=== PATIENT | female | born 1965 | race African-American/Black ===

== ENCOUNTER 2017-07-09 14:28 | Inpatient (IN) | payer OTHER ==
[~2017-07-09] VITALS: Ht 162.6 cm; Wt 69.0 kg
[2017-07-09] VITALS (10 sets, daily range): BP systolic 123–235; BP diastolic 63–146
--- NOTE | 2017-07-09 22:41 | HP ---
ADMIT DATE: 07/09/2017 CHIEF COMPLAINT: Shortness of breath. HISTORY OF PRESENT ILLNESS: The patient is a pleasant 52-year-old female who I believe has known heart failure. She presented with shortness of breath. She also had pressure of 250/150. Her BNP levels greater than 35,000. She initially was at [facility]. We have accepted her as a transfer to our facility. She is now in the ICU room 103. PAST MEDICAL HISTORY: CHF, hypertension, hyperlipidemia. Other past medical history was reviewed. Please refer to the MRAD. ALLERGIES: None. FAMILY HISTORY: Hypertension. SOCIAL HISTORY: She does not drink, smoke or take drugs. MEDICATIONS: Reviewed, please refer to the MRAD. REVIEW OF SYSTEMS: GENERAL: No history of weight change, weakness or fevers. SKIN: No bruising, hair changes or rashes. EYES: No blurred, double or loss of vision. NOSE AND THROAT: No history of nosebleeds, hoarseness or sore throat. HEART: No history of palpitations, chest pain or shortness of breath on exertion. LUNGS: She complains of shortness of breath. GASTROINTESTINAL: Denies changes in appetite, nausea, vomiting, diarrhea or constipation. GENITOURINARY: No history of frequency, urgency, hesitancy or nocturia. NEUROLOGIC: Denies history of numbness, tingling, tremor or weakness. PSYCHIATRIC: No history of panic, anxiety or depression. ENDOCRINE: No history of heat or cold intolerance, polyuria or polydipsia. EXTREMITIES: Denies muscle weakness, joint pain, pain on walking or stiffness. PHYSICAL EXAMINATION: VITAL SIGNS: Temperature afebrile, pulse 95, respirations 21, blood pressure is down to 170/84. She is on a Cardene drip here in the ICU. HEART: Distant S1, S2 with a soft S3 gallop. LUNGS: Bibasilar crackles. ABDOMEN: Soft, a little distended. EXTREMITIES: 1+ edema. SKIN: No rashes. PSYCHIATRIC: She is a little flat. ENDOCRINE: No thyromegaly. LYMPHATICS: No cervical nodes. HEMATOPOIETIC: No bruising. ASSESSMENT AND PLAN: Acute on chronic systolic and diastolic heart failure, probably class IV with severe hypertensive emergency. The patient has been admitted to the ICU on a Cardene drip. We are going to diurese her with IV Lasix. Consult cardiology, serial enzymes, serial EKGs. Continue home medicines. PROGNOSIS: Guarded. FABRIZIO CLEMONS DO DR: JENNIE/pedro JOB#: [id number] / [id number]
[2017-07-10] VITALS (27 sets, daily range): BP systolic 164–200; BP diastolic 78–114
[2017-07-10 04:26] LABS: HEMATOCRIT 36.5 % (36.0-47.0); HEMOGLOBIN 11.9 g/dL (12.0-15.5); RED BLOOD COUNT 4.13 x10^6/uL (3.50-5.40); RED CELL DISTRIBUTION WIDTH 18.2 % (11.5-14.5); WHITE BLOOD COUNT 10.1 x10^3/uL (4.0-11.0)
--- NOTE | 2017-07-10 04:27 | ACF ---
Admission Forms Criteria HEART FAILURE: COMMON COMPLICATIONS (Place 'X' for any and all applicable criteria): Ongoing inpatient care may be indicated for heart failure with 1 or more of the following (1)(2)(3)(4)(5)(6)(7)(8): [ ]I. New-onset heart failure [ ]II. Acute cardiac ischemia causing or associated with failure [ ]III. Ongoing need for care for primary condition requiring frequent therapy adjustments because of changes in cardiac function (eg, drug dosage changes for drugs that are renally metabolized) [X]IV. Complications of heart failure, including 1 or more of the following: [ ]a) Hemodynamic instability [ ]b) Pericardial effusion [ ]c) Symptomatic pleural effusion [ ]d) Hypoxemia [ ]e) Tachypnea [X]f) Dyspnea [ ]g) Syncope [ ]h) Altered mental status [ ]i) Acute renal insufficiency that is severe (reduction of more than 50% in estimated glomerular filtration rate from baseline) or progressive reduction of more than 25% in estimated glomerular filtration rate from baseline, with creatinine continuing to rise) [ ]j) Debilitating anasarca (eg tissue breakdown with infection, inability to void due to edema) (E) [ ]k) Clinically significant metabolic abnormalities due to heart failure (eg, new-onset metabolic acidosis) Extended stay may be needed until ALL of the following are present (1)(3)(18)(41 )(55) [ ]a) Hemodynamic stability [ ]b) Stable and effective diuretic regimen established (or patient on stable dialysis regimen if in chronic renal failure) [ ]c) Volume status acceptable on oral medication [ ]d) Breathing comfortably at rest [ ]e) Saturation of arterial oxygen greater than 90% or at acceptable baseline [ ]f) Pulmonary edema absent or improved [ ]g) Peripheral or sacral edema absent or improved [ ]h) Renal function stable and manageable at a lower level of care [ ]i) Complications (eg, pleural effusion) resolved or manageable at a lower level of care [ ]g) Patient or caregiver has received written discharge instructions or educational material addressing activity level, diet, discharge medications, follow-up appointment, weight monitoring, and what to do if symptoms worsen.(25)(26) The original [facility] [employer] content created by Elise Brambila[employer]rex[employer]arlen[employer] has been revised. The portions of the content which have been revised are identified through the use of italic text, and [facility] has neither reviewed nor approved the modified material.All other unmodified content is copyright [facility]. Please see references footnoted in the original [facility] edition 2015 Admission Criteria Met?: Yes JANN VASQUEZ Jul 10, 2017 04:26
--- NOTE | 2017-07-10 09:57 | RAD ---
Bilateral renal ultrasound without comparison for abnormal kidney labs. Findings: The right kidney measures 10.1 x 4.9 x 3.9 cm and the left measures 10.3 x 5.0 x 5.4 cm. Both kidneys demonstrate increased cortical echogenicity diffusely, which can signify glomerulonephritis, nephrosclerosis, or acute tubular necrosis. There is normal color Doppler flow to both kidneys. No focal parenchymal abnormalities are seen. No hydronephrosis or perinephric fluid is evident. The urinary bladder is fluid distended and grossly unremarkable. The aorta is nonaneurysmal. The IVC is patent. Impression: 1. Diffusely increased cortical echogenicity suggesting underlying medical renal disease such as glomerulonephritis, nephrosclerosis, or acute tubular necrosis.
[2017-07-10] MEDS ORDERED: MAGNESIUM SULFATE 2GM 50 ML IV PRN (10:15)
[2017-07-10] MEDS ORDERED: METOPROLOL TART IMMED RELEASE 25 MG TABLET. PO SCH (10:15)
[2017-07-10 10:35] LABS: % SAT IRON 15 % (15-34); IRON,SERUM 42 ug/dL (50-170)
--- NOTE | 2017-07-10 10:46 | PDOC2 ---
CONSULT Date of Consult Date of Consult DATE: 07/10/17 TIME: 10:34 Reason for Consult Reason for Consult: ^ed Creat Referring Physician Referring Physician: Dr Johnston Identification/Chief Complaint Chief Complaint Swelling and SOB Problems: Source Source: Patient History of Present Illness Reason for Visit: as dictated Past Medical History Cardiovascular: HTN Family History Family History: Cancer, Diabetes, Hypertension Social History <1 pack per day ALCOHOL: rare Drugs: None Lives: Alone Current Medications Current Medications Current Medications Nicardipine HCl 50 mg/Sodium Chloride 270 ml @ 0 mls/hr CONT PRN IV SEE I/O RECORD Last administered on 07/09/17 17:26; Start 07/09/17 at 16:00 Levofloxacin/ Dextrose 100 ml @ 100 mls/hr Q24H IV Last administered on 19:44; Start 07/09/17 at 19:00 Magnesium Sulfate/ Dextrose 50 ml @ 25 mls/hr PRN DAILY PRN IV for Mag < 1.7 on am labs; Start 07/10/17 at 10:15 Active Scripts Active Reported No Known Medications Prior To Admisstion (Info) Each 1 Each Allergies Allergies: Coded Allergies: No Known Drug Allergies (Unverified , 07/09/17) ROS Review of System GEN: no Fevers no Chills + wt loss + Anorexia and Dysguesia EYES: denies Visual Complaints ENT: no EN Drainage no Hearing deficiets CVS: min Orthopnea no CP + edema RESP: + SOB + CASAS GI: occ Nausea no Vomiting : no Dysuria no Urgency HEME: no easy bruising no Palp Ly Nodes NEURO no Focal Weakness no Sz PSYCH: no Suicidal Ideation no Depression SKIN: no Rashes ENDO: no Polyuria or Polydipsia no Hot/Cold Intolerance MU SK: no Arthraigia no Myalgia Physical Exam Physical Exam General Appearance: Awake Alert Oriented x 3 In no Distress Eyes: VIsion Unchanged Conjunctiva Normal EN: No EN Drainage Mucous Memb. moist Neck: no JVD min JVP Supple no Thyromegaly CVS: S1 S2 ? Murmur No Gallop No Rub +3 Edema Resp: rare basal Rales no Rhonchi no Acc. Muscle use GI: BAS +ve NO Bruit Non Tender Non Distended : no CVA tenderness; no Suprapubic Tenderness SKIN: no Rashes Breast Exam deferred Mu.Sk: Adequate ROM no Muscle Atrophy Heme: Unable to palpate Obvious LAD no Splenomegaly NEURO: Good Strength and Tone Cranial Nerves II - XII grossly intact Psych: ? Depressed no Active hallucination Vital Signs Vital Signs Date Time Temp Pulse Resp B/P (MAP) Pulse Ox O2 Delivery O2 Flow Rate FiO2 07/10/17 09:30 166/95 (118) 96 Nasal Cannula 2.0 07/10/17 09:00 24 07/10/17 08:30 66 07/10/17 08:00 98.4 98.4 Assessment & Plan ARF/ ? ATN: Suspect HTNsive /NS and now progression to ESRD status. Current FLuid and E-lyte status does not necessitate emergent need for Dialysis. Will re-evaluate for Dialysis in am. I have discussed her s/s which are suggestive of Uremia. She will vee about it. Fluid Overload - ? due to HTNSive Crisis vs due to ESRD status Edema - Diuresis as ordered HTNsive emergency - Better now on Cardene, Start Oral Meds Anemia: check [place]; start Epogen once BP are better if hgb < 11. Transfuse as needed. HTN: Current BP meds reviewed. See orders for changes. Low K - PO K replacement Anorexia - suspect due to Uremia Bone & Mineral: check Phos, Vit-D and PTH Discussed Plan of Care and prognosis etc. at length withpt Labs Labs Laboratory Tests Test 07/09/17 16:40 07/10/17 04:18 Nasal Screen MRSA (PCR) Negative (Negative) White Blood Count 10.1 x10^3/uL (4.0-11.0) Red Blood Count 4.13 x10^6/uL (3.50-5.40) Hemoglobin 11.9 g/dL (12.0-15.5) Hematocrit 36.5 % (36.0-47.0) Mean Corpuscular Volume 89 fL (79-100) Mean Corpuscular Hemoglobin 29 pg (25-35) Mean Corpuscular Hemoglobin Concent 33 g/dL (31-37) Red Cell Distribution Width 18.2 % (11.5-14.5) Platelet Count 217 x10^3/uL (140-400) Erythrocyte Sedimentation Rate 2 (0-25) Sodium Level 140 mmol/L (136-145) Potassium Level 3.2 mmol/L (3.5-5.1) Chloride Level 100 mmol/L (98-107) Carbon Dioxide Level 28 mmol/L (21-32) Anion Gap 12 (6-14) Blood Urea Nitrogen 53 mg/dL (7-20) Creatinine 3.2 mg/dL (0.6-1.0) Estimated GFR (Cockcroft-Gault) 18.3 Glucose Level 118 mg/dL (70-99) Calcium Level 8.8 mg/dL (8.5-10.1) Magnesium Level 2.2 mg/dL (1.8-2.4) Laboratory Tests Test 07/09/17 16:40 07/10/17 04:18 Nasal Screen MRSA (PCR) Negative (Negative) White Blood Count 10.1 x10^3/uL (4.0-11.0) Red Blood Count 4.13 x10^6/uL (3.50-5.40) Hemoglobin 11.9 g/dL (12.0-15.5) Hematocrit 36.5 % (36.0-47.0) Mean Corpuscular Volume 89 fL (79-100) Mean Corpuscular Hemoglobin 29 pg (25-35) Mean Corpuscular Hemoglobin Concent 33 g/dL (31-37) Red Cell Distribution Width 18.2 % (11.5-14.5) Platelet Count 217 x10^3/uL (140-400) Erythrocyte Sedimentation Rate 2 (0-25) Sodium Level 140 mmol/L (136-145) Potassium Level 3.2 mmol/L (3.5-5.1) Chloride Level 100 mmol/L (98-107) Carbon Dioxide Level 28 mmol/L (21-32) Anion Gap 12 (6-14) Blood Urea Nitrogen 53 mg/dL (7-20) Creatinine 3.2 mg/dL (0.6-1.0) Estimated GFR (Cockcroft-Gault) 18.3 Glucose Level 118 mg/dL (70-99) Calcium Level 8.8 mg/dL (8.5-10.1) Magnesium Level 2.2 mg/dL (1.8-2.4) LEONARDO TANNER MD Jul 10, 2017 10:46
--- NOTE | 2017-07-10 10:47 | PDOC ---
PROGRESS NOTES Chief Complaint Chief Complaint Acute hypoxic respir failure Hypertensive urgency ASSESSMENT AND PLAN: 1. CHF exacerbation: symptomatically improved. received lasix in [facility] yesterday. strict I&O. serial enzymes. cardiology consult 2. Hypertensive urgency: per RN, not tolerating BP <150 w/o neurol sx. d/c nicardipine; start BB low dose (HR in 60s currently). adjust PRN 3. Renal failure: suspect mostly chronic. nephrology consult 4. Hypokalemia: cautious repletion in face of RF. 5. Hypomagnesemia: replete PRN 6. prophylaxis: heparin SQ D/w Dr Brock, Mr Antolin CC time: 40 min History of Present Illness History of Present Illness feels fien, no SOB, GONZALEZ or CP, abd pain Vitals Vitals Vital Signs Date Time Temp Pulse Resp B/P (MAP) Pulse Ox O2 Delivery O2 Flow Rate FiO2 07/10/17 09:30 166/95 (118) 96 Nasal Cannula 2.0 07/10/17 09:00 24 07/10/17 08:30 66 07/10/17 08:00 98.4 98.4 Physical Exam General: Alert, Cooperative, No acute distress Heart: Regular rate, Other (mild gallop) Lungs: Clear Abdomen: Normal bowel sounds, Soft, No tenderness Extremities: Other (2+ edema LE B) Skin: No rashes Labs LABS Laboratory Tests Test 07/09/17 16:40 07/10/17 04:18 Nasal Screen MRSA (PCR) Negative (Negative) White Blood Count 10.1 x10^3/uL (4.0-11.0) Red Blood Count 4.13 x10^6/uL (3.50-5.40) Hemoglobin 11.9 g/dL (12.0-15.5) Hematocrit 36.5 % (36.0-47.0) Mean Corpuscular Volume 89 fL (79-100) Mean Corpuscular Hemoglobin 29 pg (25-35) Mean Corpuscular Hemoglobin Concent 33 g/dL (31-37) Red Cell Distribution Width 18.2 % (11.5-14.5) Platelet Count 217 x10^3/uL (140-400) Erythrocyte Sedimentation Rate 2 (0-25) Sodium Level 140 mmol/L (136-145) Potassium Level 3.2 mmol/L (3.5-5.1) Chloride Level 100 mmol/L (98-107) Carbon Dioxide Level 28 mmol/L (21-32) Anion Gap 12 (6-14) Blood Urea Nitrogen 53 mg/dL (7-20) Creatinine 3.2 mg/dL (0.6-1.0) Estimated GFR (Cockcroft-Gault) 18.3 Glucose Level 118 mg/dL (70-99) Calcium Level 8.8 mg/dL (8.5-10.1) Magnesium Level 2.2 mg/dL (1.8-2.4) JOEY OSUNA MD Jul 10, 2017 10:47
[2017-07-10 10:51] LABS: ALBUMIN 2.8 g/dL (3.4-5.0); POTASSIUM 3.2 mmol/L (3.5-5.1); TOTAL BILIRUBIN 0.6 mg/dL (0.2-1.0); TOTAL PROTEIN 5.6 g/dL (6.4-8.2); URIC ACID 15.5 mg/dL (2.6-6.0)
[2017-07-10 10:59] LABS: CALCIUM 8.8 mg/dL (8.5-10.1); CREATININE 3.2 mg/dL (0.6-1.0); GFR 18.3
[2017-07-10] MEDS: amLODIPine BESYLATE 10 MG TABLET PO SCH (11:01)
[2017-07-10] MEDS: ASPIRIN CHEWABLE 81 MG TABLET. PO SCH (11:02)
[2017-07-10] MEDS: FUROSEMIDE 40 MG/4 ML VIAL. IVP SCH ×2 (11:03→14:00)
--- NOTE | 2017-07-10 11:12 | PDOC2 ---
TING CARRILLO FURNACE PROCESS PLANT OPERATOR 07/10/17 1112: CARDIAC CONSULT DATE OF CONSULT Date of Consult DATE: 07/10/17 TIME: 10:39 REASON FOR CONSULT Reason for Consult: HTN REFERRING PHYSICIAN Referring Physician: Wanda SOURCE Source: Chart review, Patient HISTORY OF PRESENT ILLNESS HISTORY OF PRESENT ILLNESS This is a pleasant 52 yo AA female admitted initially at [facility] for complains of SOA. Reports that her SOA has been going on in the last 2 days. She has no pertinent medical history and the last time she saw an physician was about 3 yrs ago. Reports of orthopnea, PND and increasing leg swelling bilaterally. She could not really tell me if her urination has decreased but reporsts that she drinks adequately. Denies any chest pain, palpitations. Prior to her admission to [facility] she was noted with uncontrolled HTN which is new for her and was complianing of blurred vision as well but no GONZALEZ, facial droop, unilateral extremity weakness. No prior hx of arrhythmia, VTE, falls, injury, fever or any recent infection. Positive for tobacco but no recreational drug use. She works at [employer] and endurance has decreased and lives alone. The last time she was hospitalized was she had her last child. Based on chart review she has been noted with HTN in 2013. She does not take any medication including OTC. PAST MEDICAL HISTORY Past Medical History HTN PAST SURGICAL HISTORY Past Surgical History: Tubal Ligation, Other (oopherectomy) FAMILY HISTORY Family History noncontributory to CV SOCIAL HISTORY Smoke: 1 pack per day (>30 yrs) ALCOHOL: none Drugs: None Lives: Alone CURRENT MEDICATIONS CURRENT MEDICATIONS Current Medications Medications (Trade) Dose Ordered Sig/Yeison Route PRN Reason Start Time Stop Time Status Last Admin Dose Admin Nicardipine HCl 50 mg/Sodium Chloride 270 ml @ 0 mls/hr CONT PRN IV SEE I/O RECORD 07/09/17 16:00 07/10/17 10:36 DC 07/09/17 17:26 Levofloxacin/ Dextrose 100 ml @ 100 mls/hr Q24H IV 07/09/17 19:00 07/09/17 19:44 ALLERGIES ALLERGIES: Coded Allergies: No Known Drug Allergies (Unverified , 07/09/17) ROS Review of System 14 point ROS evaluated with pertinent positives noted per HPI PHYSICAL EXAM General: Alert, Oriented X3, Cooperative, No acute distress HEENT: Atraumatic, Mucous membr. moist/pink Lungs: Clear to auscultation, Normal air movement Heart: Regular rate (SR), Normal S1, Normal S2, Other (S4/ 3/6 systolic murmur to HERMELINDA border) Abdomen: Soft, No tenderness Extremities: No cyanosis, Other (2-3+ bilateral LE pitting edema) Neuro: Normal speech, Sensation intact Psych/Mental Status: Mental status NL, Mood NL MUSCULOSKELETAL: Osteoarthritic changes both hands VITALS VITALS Vital Signs Date Time Temp Pulse Resp B/P (MAP) Pulse Ox O2 Delivery O2 Flow Rate FiO2 07/10/17 09:30 166/95 (118) 96 Nasal Cannula 2.0 07/10/17 09:00 24 07/10/17 08:30 66 07/10/17 08:00 98.4 98.4 LABS Lab: Laboratory Tests Test 07/09/17 16:40 07/10/17 04:18 Nasal Screen MRSA (PCR) Negative (Negative) White Blood Count 10.1 x10^3/uL (4.0-11.0) Red Blood Count 4.13 x10^6/uL (3.50-5.40) Hemoglobin 11.9 g/dL (12.0-15.5) Hematocrit 36.5 % (36.0-47.0) Mean Corpuscular Volume 89 fL (79-100) Mean Corpuscular Hemoglobin 29 pg (25-35) Mean Corpuscular Hemoglobin Concent 33 g/dL (31-37) Red Cell Distribution Width 18.2 % (11.5-14.5) Platelet Count 217 x10^3/uL (140-400) Erythrocyte Sedimentation Rate 2 (0-25) Sodium Level 140 mmol/L (136-145) Potassium Level 3.2 mmol/L (3.5-5.1) Chloride Level 100 mmol/L (98-107) Carbon Dioxide Level 28 mmol/L (21-32) Anion Gap 12 (6-14) Blood Urea Nitrogen 53 mg/dL (7-20) Creatinine 3.2 mg/dL (0.6-1.0) Estimated GFR (Cockcroft-Gault) 18.3 Glucose Level 118 mg/dL (70-99) Calcium Level 8.8 mg/dL (8.5-10.1) Magnesium Level 2.2 mg/dL (1.8-2.4) Iron Level 42 ug/dL (50-170) Total Iron Binding Capacity 283 ug/dL (250-450) Iron Saturation 15 % (15-34) ASSESSMENT/PLAN ASSESSMENT/PLAN 1. Malignant HTN: noted with HTN in 2013 per chart review, no home routine meds. 2. WAYNE: suspect underlying CKD, unknown baseline 3. Acute CHF with possible diastolic dysfunction: promoted by above . Symptom improved 4. Elevated troponin: CP free. EKG SR with LVH. Troponin initial at 0.256 5. Likely SUZANNE 6. Tobaccoism Recommendations 1. TTE, A1C, TSH, TTE, renal duplex, trend troponin, repeat EKG 2. Smoking cessation 3. ASA. Continue with norvasc. Weaning off cardene. DC metoprolol and will start on coreg. Hydralazine IV PRN 4. Replace K as warranted 5. Defer diuretic therapy to nephrology 6. Discussed treatment plan with pt. Problems: GWYN LENNON MD 07/11/17 0934: CARDIAC CONSULT ALLERGIES ALLERGIES: Coded Allergies: No Known Drug Allergies (Unverified , 07/09/17) ASSESSMENT/PLAN ASSESSMENT/PLAN Patient seen and examined 07/10/17. Agree with CORE DRILL OPERATOR's assessment and plan. Blood pressure continues to be elevated. Change beta blockers to labetalol for better control. 2-D echo showed LVEF 40% with possible chronic organized thrombus in the left ventricular apex. Plan for transesophageal echocardiogram for further evaluation. We will obtain Lexiscan nuclear stress test on post a to rule out ischemia. Continue workup and treatment of renal insufficiency per nephrology team. Thank you for your consultation. Problems: TING CARRILLO APRN Jul 10, 2017 11:12 GWYN LENNON MD Jul 11, 2017 09:34
[2017-07-10] MEDS: POTASSIUM CHLORIDE 20 MEQ TABLET.ER. PO SCH (11:30)
[2017-07-10 11:45] LABS: DIRECT BILIRUBIN 0.2 mg/dL (0.0-0.2)
[2017-07-10] MEDS: hydrALAZINE 20 MG/ML VIAL. IVP PRN ×3 (12:05→21:40)
--- NOTE | 2017-07-10 13:34 | CARD ---
APPROVED REPORT EXAM: Two-dimensional and M-mode echocardiogram with Doppler and color Doppler. Other Information Quality : GoodHR: 69bpm Rhythm : NSR INDICATION Congestive Heart Failure RISK FACTORS Hypertension Smoking 2D DIMENSIONS RVDd2.8 (2.9-3.5cm)Left Atrium(2D)4.1 (1.6-4.0cm) IVSd1.7 (0.7-1.1cm)Aortic Root(2D)2.6 (2.0-3.7cm) LVDd5.0 (3.9-5.9cm)LVOT Diameter2.3 (1.8-2.4cm) PWd1.5 (0.7-1.1cm)LVDs3.7 (2.5-4.0cm) FS (%) 26.7 %SV62.7 ml LVEF(%)51.9 (>50%) M-Mode DIMENSIONS LVDd5.03 (4.0-5.6cm)FS (%) 29 % LVDs3.55 (2.0-3.8cm)ESV(Teich)52.7 ml LVEF(%)56 (>50%) Aortic Valve AoV Peak Jaylen.161.1cm/sAoV VTI30.1cm AO Peak GR.10.4mmHgLVOT Peak Jaylen.100.1cm/s AO Mean GR.6mmHgAVA (VMAX)2.52cm2 Mitral Valve MV E Bjuvfqcy732.7cm/sMV E Peak Gr.5mmHg MV DECEL [id number] A Yoxrvlpm19.2cm/s MV E Mean Gr.1mmHgE/A Ratio3.1 MV A [id number] Pulmonary Valve PV Peak Hgfciarp09.9cm/s Tricuspid Valve TR P. Qluivvkv095de/sTR Peak Gr.32mmHg Pulmonary Vein S1 Mlrvvbgl37.6cm/sD2 Ygvhejwc93.5cm/s PVa [id number] LEFT VENTRICLE The left ventricle is normal size. There is moderate to severe concentric left ventricular hypertroph y. Left ventricle systolic function is moderately impaired. The Ejection Fraction is 40%. There is mi ld to moderate global hypokinesis of the left ventricle with inferior wall hypokinesis. Transmitral D oppler flow pattern is Grade IV-fixed restrictive diastolic dysfunction. A 3 x 3 x 2 cm. hyperechoic mass is noted in the apical septal region of the left ventricle consistent with chronic organized thr ombus. RIGHT VENTRICLE The right ventricle is normal size. There is normal right ventricular wall thickness. Systolic functi on is mildly reduced. ATRIA The left atrium is severely dilated. The right atrium size is normal. The interatrial septum is intac t with no evidence for an atrial septal defect or patent foramen ovale as noted on 2-D or Doppler tiesha ging. AORTIC VALVE The aortic valve is mildly sclerotic. The aortic valve is trileaflet. Doppler and Color Flow revealed no significant aortic regurgitation. There is no significant aortic valvular stenosis. MITRAL VALVE Mitral annular calcification is mild. The mitral valve leaflets are thickened. There is no evidence o f mitral valve prolapse. There is no mitral valve stenosis. Doppler and Color Flow revealed no mitral valve regurgitation noted. TRICUSPID VALVE Doppler and Color Flow revealed trace tricuspid regurgitation. The pulmonary artery systolic pressure is estimated at 35 mmHg. There is mild pulmonary hypertension. PULMONIC VALVE The pulmonic valve is not well visualized but appears to open adequately. Doppler and Color Flow reve aled trace pulmonic valvular regurgitation. There is no pulmonic valvular stenosis by spectral Dopple r. GREAT VESSELS The aortic root is normal in size. The ascending aorta is normal in size. The pulmonary artery is nor mal. The IVC is normal in size and collapses >50% with inspiration. PERICARDIAL EFFUSION There is no evidence of significant pericardial effusion. Critical Notification Physician Notified Date: 07/10/2017 Time: 11:52 Physician Name:Jenni Lincoln Critical Value: Yes Response Time:Immediate Report Read Back <Conclusion> Left ventricle systolic function is moderately impaired. The Ejection Fraction is 40%. There is mild to moderate global hypokinesis of the left ventricle with inferior wall hypokinesis. There is moderate to severe concentric left ventricular hypertrophy. A 3 x 3 x 2 cm hyperechoic mass is noted in the apical septal region of the left ventricle consisten t with chronic organized thrombus. The mass is seen in multiple views and less likely to be artifactu al. Consider KEVIN or cardiac MRI for further evaluation.
--- NOTE | 2017-07-10 13:40 | CONS ---
DATE OF CONSULTATION: PRIMARY PHYSICIAN: Dr. Muñoz. REASON FOR CONSULTATION: Elevated creatinine. HISTORY OF PRESENT ILLNESS: The patient is a 52-year-old female who works at [employer]. She is noted to have high blood pressure for at least 4 years that she knows of, malignant in nature. She was diagnosed when she saw Dr. Candelario, but she never followed up for the last 4 years. She thinks she may have had high blood pressure even prior to that. She is not aware of known renal insufficiency. She rarely takes any Advils. She claims she was feeling her usual self; however, her colleagues at work asked her to be checked out given her ongoing edema, shortness of breath and some amount of orthopnea. She admits to have lost about 30 pounds in the last few months also. She has no appetite, is significantly anorexic. Occasional nausea, no vomiting at this time. She was checked at [facility] and was noted to be in CHF with +2 pitting edema and hypertensive crisis. She was placed on a Cardene drip and transferred here after she was found to have an elevated creatinine. Renal sonogram done here shows right kidney measuring 10 cm, left 10.3, both kidneys demonstrate increased cortical echogenicity diffusely, which can signify glomerulonephritis, nephrosclerosis or acute tubular necrosis. In this setting, we did discuss the possibility of a kidney biopsy; however, given the bleeding risk, she has opted not to pursue this. Her ____ symptoms suggestive of uremia and dialysis was discussed at length with the patient. She is not willing to commit at this time. We will fluid optimize and get blood pressures better controlled, and it should infectious disease physician her enough time to think about it. For rest of dictation, see electronic records ____. LEONARDO TANNER MD DR: AMANDA/pedro JOB#: [id number] / [id number]
[2017-07-10] MEDS: HEPARIN PF for SUB-Q USE 5,000 UNIT/0.5 ML VIAL. SQ SCH ×2 (14:00→21:39)
--- NOTE | 2017-07-10 14:27 | EKG ---
[facility] [address] [place] [address] Test Date: 2017-07-10 Test Time: 14:22:32 Pat Name: GARCÍA SHORT Department: Room: 103 1 Gender: F [employer] Finance Manager: CHELSEA : 1965 Requested By: TING CARRILLO Order Number: [id number] Reading MD: Jarett Marte Measurements Intervals [place] Rate: 68 P: UT: QRS: -7 QRSD: 150 T: -179 QT: 504 QTc: 542 Interpretive Statements SINUS RHYTHM LEFTWARD AXIS NON SPECIFIC INTRAVENTRICULAR BLOCK CONSIDER ANTEROLATERAL MYOCARDIAL DAMAGE CONSIDER INFERIOR MYOCARDIAL DAMAGE Electronically Signed On 07-12-2017 11:14:53 CDT by Jarett Marte
[2017-07-10 15:14] LABS: BASO # 0.1 x10^3/uL (0.0-0.2); BASO % 1 % (0-3); EOS % 0 % (0-3); HEMATOCRIT 42.3 % (36.0-47.0); HEMOGLOBIN 13.5 g/dL (12.0-15.5); LYMPH # 1.3 x10^3/uL (1.0-4.8); LYMPH % 11 % (24-48); MEAN CORPUSCULAR HEMOGLOBIN 29 pg (25-35); MEAN CORPUSCULAR HGB CONC 32 g/dL (31-37); MEAN CORPUSCULAR VOLUME 90 fL (79-100); MONO % 6 % (0-9); NEUT % 81 % (31-73); PLATELET COUNT 231 x10^3/uL (140-400); RED BLOOD COUNT 4.72 x10^6/uL (3.50-5.40); RED CELL DISTRIBUTION WIDTH 18.6 % (11.5-14.5); WHITE BLOOD COUNT 11.2 x10^3/uL (4.0-11.0)
[2017-07-10] MEDS ORDERED: ISOSORBIDE MONONITRATE ER 30 MG TAB.ER.24H PO SCH (15:30)
--- NOTE | 2017-07-10 15:54 | RAD ---
Exam performed: CT scan of the head without contrast. Date of Service: 07/10/17. Comparison: None available. . Clinical History: Blurred vision. Technique: Helical acquisitions are obtained from the foramen magnum to the vertex without intravenous administration of contrast. Findings: The ventricles are midline without evidence of dilatation. Normal de la paz-white differentiation is maintained. There are areas of low-attenuation in both periventricular and subcortical deep white matter . There is no extra axial fluid collection, intraparenchymal hemorrhage or mass lesion. The visualized portions of the orbits, paranasal sinuses and the mastoid air cells appear clear. The calvarium is intact. Impression: 1. Mild age related atrophy. No acute intracranial process detected. PQRS Compliance Statement: One or more of the following individualized dose reduction techniques were utilized for this examination: 1. Automated exposure control 2. Adjustment of the mA and/or kV according to patient size 3. Use of iterative reconstruction technique
[2017-07-10] MEDS ORDERED: CARVEDILOL 6.25 MG TABLET. PO SCH (17:00)
[2017-07-10 18:12] LABS: PTH INTACT 223 pg/mL (15-65)
[2017-07-10] MEDS ORDERED: PEG 3350/NA SULF,BICARB,CL/KCL 4,000 ML SOLUTION. PO ONE (18:45)
[2017-07-10 19:43] LABS: BILIRUBIN,URINE NEGATIVE (NEG); GLUCOSE,URINE NEGATIVE (NEG); NITRITE,URINE NEGATIVE (NEG); PH,URINE 6.5; PROTEIN,URINE 30 mg/dL (NEG-TRACE); UROBILINOGEN,URINE 0.2 mg/dL (0.2 mg/dL)
[2017-07-10 19:52] LABS: BACTERIA,URINE MODERATE /HPF (0-FEW); RBC,URINE 0 /HPF (0-2); SQUAMOUS EPITHELIAL CELL,UR MOD /LPF
[2017-07-10] MEDS: ATORVASTATIN CALCIUM 20 MG TABLET PO SCH (21:34)
[2017-07-11] VITALS (24 sets, daily range): BP systolic 98–208; BP diastolic 50–111
[2017-07-11] MEDS: hydrALAZINE 20 MG/ML VIAL. IVP PRN ×3 (02:21→17:07)
[2017-07-11] MEDS: HEPARIN PF for SUB-Q USE 5,000 UNIT/0.5 ML VIAL. SQ SCH ×3 (06:20→21:55)
[2017-07-11] MEDS ORDERED: LIDOCAINE 1% 1 ML SYRINGE. ID PRN (07:00)
[2017-07-11] MEDS ORDERED: HYDROmorphone 2 MG/ML VIAL IV PRN (07:00)
[2017-07-11] MEDS ORDERED: PROCHLORPERAZINE 10 MG/2 ML VIAL. IV PRN (07:00)
[2017-07-11] MEDS ORDERED: IV RINGERS,LACTATED 1000ML 1,000 ML IV SCH (07:00)
[2017-07-11] MEDS ORDERED: fentaNYL PF VIAL 100 MCG/2 ML VIAL IV PRN ×2 (07:00)
[2017-07-11] MEDS ORDERED: MORPHINE SULFATE 2 MG/ML DISP.SYRIN. IV PRN (07:00)
[2017-07-11 07:14] LABS: ALBUMIN 2.9 g/dL (3.4-5.0); CALCIUM 8.5 mg/dL (8.5-10.1); CREATININE 2.9 mg/dL (0.6-1.0); GFR 20.5; PHOSPHORUS 3.8 mg/dL (2.6-4.7); POTASSIUM 3.4 mmol/L (3.5-5.1)
[2017-07-11] MEDS ORDERED: ASPIRIN ENTERIC COATED 81 MG TABLET.DR. PO SCH (08:00)
[2017-07-11] MEDS: ASPIRIN CHEWABLE 81 MG TABLET. PO SCH (08:39)
[2017-07-11] MEDS: amLODIPine BESYLATE 10 MG TABLET PO SCH (08:39)
[2017-07-11] MEDS: FUROSEMIDE 40 MG/4 ML VIAL. IVP SCH ×2 (08:40→14:32)
[2017-07-11] MEDS: POTASSIUM CHLORIDE 20 MEQ TABLET.ER. PO SCH ×3 (08:41→17:07)
--- NOTE | 2017-07-11 09:19 | RAD ---
Exam performed: 2 views chest. History: CHF. Date of service: 07/11/17. Comparison: None available Findings: Mild cardiomegaly. Pulmonary vascularity is unremarkable. Lungs are well expanded and clear. No focal infiltrates, effusion or pneumothorax. Impression: Mild cardiomegaly. No acute pulmonary findings seen.
[2017-07-11] MEDS ORDERED: IRON SUCROSE COMPLEX 200 MG in IV NORMAL SALINE 100ML 100 ML IV SCH (09:30)
--- NOTE | 2017-07-11 09:34 | PDOC ---
PROGRESS NOTES Chief Complaint Chief Complaint Acute hypoxic respir failure Hypertensive urgency ASSESSMENT AND PLAN: 1. CHF exacerbation: symptomatically improved. received lasix in ER [facility] yesterday. strict I&O. serial enzymes. cardiology consult 2. Hypertensive urgency: on BB, Norvasc, hydralazine PRN. control poor. add clonidine 3. Renal failure: creat essentially stable. nephrology consult appreciated 4. Anemia: combined iron deficiency and inflammatory (CHF) etiology. on IV iron 5. Hypokalemia: improving. cautious repletion in face of RF. 6. Hypomagnesemia: replete PRN 7. prophylaxis: heparin SQ History of Present Illness History of Present Illness feels ok, denies pain. Vitals Vitals Vital Signs Date Time Temp Pulse Resp B/P (MAP) Pulse Ox O2 Delivery O2 Flow Rate FiO2 07/11/17 08:39 70 208/102 07/11/17 08:00 Room Air 07/11/17 08:00 97.9 21 97 97.9 07/10/17 09:30 2.0 Physical Exam General: Alert, Oriented X3, Cooperative, No acute distress Heart: Regular rate (SR), Normal S1, Normal S2, Other (S4/ 3/6 systolic murmur to HERMELINDA border) Lungs: Clear Abdomen: Soft, No tenderness Extremities: No cyanosis, Other (2-3+ bilateral LE pitting edema) Skin: No rashes Labs LABS Laboratory Tests Test 07/10/17 11:20 07/10/17 15:35 07/10/17 17:15 07/11/17 06:05 White Blood Count 11.2 x10^3/uL (4.0-11.0) Red Blood Count 4.72 x10^6/uL (3.50-5.40) Hemoglobin 13.5 g/dL (12.0-15.5) 12.7 g/dL (12.0-15.5) Hematocrit 42.3 % (36.0-47.0) Mean Corpuscular Volume 90 fL (79-100) Mean Corpuscular Hemoglobin 29 pg (25-35) Mean Corpuscular Hemoglobin Concent 32 g/dL (31-37) Red Cell Distribution Width 18.6 % (11.5-14.5) Platelet Count 231 x10^3/uL (140-400) Neutrophils (%) (Auto) 81 % (31-73) Lymphocytes (%) (Auto) 11 % (24-48) Monocytes (%) (Auto) 6 % (0-9) Eosinophils (%) (Auto) 0 % (0-3) Basophils (%) (Auto) 1 % (0-3) Neutrophils # (Auto) 9.2 x10^3uL (1.8-7.7) Lymphocytes # (Auto) 1.3 x10^3/uL (1.0-4.8) Monocytes # (Auto) 0.7 x10^3/uL (0.0-1.1) Eosinophils # (Auto) 0.0 x10^3/uL (0.0-0.7) Basophils # (Auto) 0.1 x10^3/uL (0.0-0.2) Estimated GFR (Non- 17 (>59) EGFR 19 (>59) 25-Hydroxy Vitamin D Total 12.2 ng/mL (30.0-100.0) PTH (Intact) Specimen Description Comment (.) Parathyroid Hormone (Intact) 223 pg/mL (15-65) Calcium (PTH Intact) 8.7 mg/dL (8.7-10.2) Creatinine (PTH Intact) 3.04 mg/dL (0.57-1.00) Phosphorus (PTH Intact) 4.4 mg/dL (2.5-4.5) Activated Partial Thromboplast Time 21 SEC (24-38) Urine Collection Type Unknown Urine Color Yellow Urine Clarity Clear Urine pH 6.5 Urine Specific [place] 1.010 Urine Protein 30 mg/dL (NEG-TRACE) Urine Glucose (UA) Negative mg/dL (NEG) Urine Ketones (Stick) Negative mg/dL (NEG) Urine Blood Negative (NEG) Urine Nitrite Negative (NEG) Urine Bilirubin Negative (NEG) Urine Urobilinogen Dipstick 0.2 mg/dL (0.2 mg/dL) Urine Leukocyte Esterase Small (NEG) Urine RBC 0 /HPF (0-2) Urine WBC 11-20 /HPF (0-4) Urine Squamous Epithelial Cells Mod /LPF Urine Bacteria Moderate /HPF (0-FEW) Sodium Level 140 mmol/L (136-145) Potassium Level 3.4 mmol/L (3.5-5.1) Chloride Level 99 mmol/L (98-107) Carbon Dioxide Level 30 mmol/L (21-32) Anion Gap 11 (6-14) Blood Urea Nitrogen 47 mg/dL (7-20) Creatinine 2.9 mg/dL (0.6-1.0) Estimated GFR (Cockcroft-Gault) 20.5 Glucose Level 122 mg/dL (70-99) Calcium Level 8.5 mg/dL (8.5-10.1) Phosphorus Level 3.8 mg/dL (2.6-4.7) Magnesium Level 2.1 mg/dL (1.8-2.4) Albumin 2.9 g/dL (3.4-5.0) JOEY OSUNA MD Jul 11, 2017 09:34
--- NOTE | 2017-07-11 10:02 | PDOC ---
SUBJECTIVE ROS WAYNE/ ? CKD IV/V with ESRD DOing and feeling a little better from resp standpoint CVS: no Orthopnea, no CP RESP: min SOB, ? CASAS(not ambulated yet) GI: no Nausea, no Vomiting + Anorexia : no Dysuria, no Urgency OBJECTIVE Vital Signs Vital Signs Date Time Temp Pulse Resp B/P (MAP) Pulse Ox O2 Delivery O2 Flow Rate FiO2 07/11/17 08:39 70 208/102 07/11/17 08:00 Room Air 07/11/17 08:00 97.9 21 97 97.9 07/10/17 09:30 2.0 I & 0 Intake and Output 07/12/17 07:00 Intake Total 100 ml Output Total 50 ml Balance 50 ml Intake Oral 100 ml Output Urine Total 50 ml PHYSICAL EXAM Physical Exam General Appearance: Awake Alert Oriented x 3 In no Distress Eyes: VIsion Unchanged Conjunctiva Normal EN: No EN Drainage Mucous Memb. moist Neck: no JVD min JVP Supple no Thyromegaly CVS: S1 S2 ? Murmur No Gallop No Rub +2 Edema Resp: rare basal Rales no Rhonchi no Acc. Muscle use GI: BS +ve NO Bruit Non Tender Non Distended : no CVA tenderness; no Suprapubic Tenderness SKIN: no Rashes Breast Exam deferred Mu.Sk: Adequate ROM no Muscle Atrophy Heme: Unable to palpate Obvious LAD no Splenomegaly NEURO: Good Strength and Tone Cranial Nerves II - XII grossly intact Psych: ? Depressed no Active hallucination Assessment & Plan: ARF/ ? ATN: Suspect HTNsive /NS and now progression to ESRD status. Current FLuid and E-lyte status does not necessitate emergent need for Dialysis. Will re-evaluate for Dialysis in am. I had discussed with her yest re s/s which are suggestive of Uremia. She is willing to do HD if needed. GFR is better today and so 24-hr Urine will be checked also. Fluid Overload - ? due to HTNSive Crisis vs due to ESRD status - ct Diuresis as ordered Edema - Diuresis as ordered HTNsive emergency (POA) - BP Up again now that she was off Cardene, Adding Oral Meds - see orderes; Await RAD as ordered Anemia: Fedef state as noted so IV Iron as ordered; start Epogen once BP are better if hgb < 11. Transfuse as needed. Low K - PO K replacement as ordered, follow mag Proteinruia - await Quantitation. S. Protein Gap is small so no PEPs ordered Anorexia - suspect due to Uremia - GFR doesn ot corroborate with s/s ^ed PTH - ? d ue to VIt D def Vit D def - start PO VIt D Discussed Plan of Care and prognosis etc. at length withpt COMMENT/RELEVANT DATA Meds Current Medications Medications (Trade) Dose Ordered Sig/Yeison Start Time Stop Time Status Last Admin Dose Admin Amlodipine Besylate (Norvasc) 10 mg DAILY 07/10/17 10:45 07/11/17 08:39 10 MG Aspirin (Children'S Aspirin) 81 mg DAILYWBKFT 07/10/17 10:15 07/11/17 08:39 81 MG Aspirin (Ecotrin) 81 mg DAILYWBKFT 07/11/17 08:00 UNV Atorvastatin Calcium (Lipitor) 20 mg QHS 07/10/17 21:00 07/10/17 21:34 20 MG Carvedilol (Coreg) 6.25 mg BIDWMEALS 07/10/17 17:00 07/11/17 09:35 DC 07/11/17 08:39 6.25 MG Fentanyl Citrate (Fentanyl 2ml Vial) 50 mcg PRN Q5MIN PRN 07/11/17 07:00 07/12/17 06:59 Furosemide (Lasix) 40 mg BID92 07/10/17 11:00 07/11/17 08:40 40 MG Heparin Sodium (Porcine) (Heparin Sq) 5,000 unit Q8HRS 07/10/17 14:00 07/11/17 06:20 5,000 UNIT Hydralazine HCl (Apresoline) 10 mg PRN Q4HRS PRN 07/10/17 10:45 07/11/17 06:18 10 MG Hydromorphone HCl (Dilaudid) 0.5 mg PRN Q10MIN PRN 07/11/17 07:00 07/12/17 06:59 Isosorbide Mononitrate (Imdur) 30 mg DAILY 07/10/17 15:30 07/11/17 08:38 30 MG Labetalol HCl (Trandate) 200 mg BID 07/11/17 21:00 Levofloxacin/ Dextrose 50 ml @ 50 mls/hr Q24H 07/10/17 19:00 07/10/17 21:40 50 MLS/HR Lidocaine HCl 2 ml PRN 1X PRN 07/11/17 07:00 07/12/17 06:59 Magnesium Sulfate/ Dextrose 50 ml @ 25 mls/hr PRN DAILY PRN 07/10/17 10:15 Metoprolol Tartrate (Lopressor) 12.5 mg BID 07/10/17 10:15 07/10/17 11:13 DC Morphine Sulfate 1 mg PRN Q10MIN PRN 07/11/17 07:00 07/12/17 06:59 Nicardipine HCl 50 mg/Sodium Chloride 270 ml @ 0 mls/hr CONT PRN 07/09/17 16:00 07/10/17 10:36 DC 07/09/17 17:26 25 MLS/HR Potassium Chloride (Klor-Con) 40 meq BIDWMEALS 07/10/17 11:30 07/11/17 08:43 40 MEQ Prochlorperazine Edisylate (Compazine) 5 mg PACU PRN PRN 07/11/17 07:00 07/12/17 06:59 Ringer's Solution 1,000 ml @ 30 mls/hr Q24H 07/11/17 07:00 07/11/17 18:59 Sodium Cl/Sod Bicarb/Potass Cl/ PEG (Golytely) 4,000 ml 1X ONCE 07/10/17 18:45 07/10/17 18:46 UNV Lab Laboratory Tests Test 07/10/17 11:20 07/10/17 15:35 07/10/17 17:15 07/11/17 06:05 White Blood Count 11.2 x10^3/uL (4.0-11.0) Red Blood Count 4.72 x10^6/uL (3.50-5.40) Hemoglobin 13.5 g/dL (12.0-15.5) 12.7 g/dL (12.0-15.5) Hematocrit 42.3 % (36.0-47.0) Mean Corpuscular Volume 90 fL (79-100) Mean Corpuscular Hemoglobin 29 pg (25-35) Mean Corpuscular Hemoglobin Concent 32 g/dL (31-37) Red Cell Distribution Width 18.6 % (11.5-14.5) Platelet Count 231 x10^3/uL (140-400) Neutrophils (%) (Auto) 81 % (31-73) Lymphocytes (%) (Auto) 11 % (24-48) Monocytes (%) (Auto) 6 % (0-9) Eosinophils (%) (Auto) 0 % (0-3) Basophils (%) (Auto) 1 % (0-3) Neutrophils # (Auto) 9.2 x10^3uL (1.8-7.7) Lymphocytes # (Auto) 1.3 x10^3/uL (1.0-4.8) Monocytes # (Auto) 0.7 x10^3/uL (0.0-1.1) Eosinophils # (Auto) 0.0 x10^3/uL (0.0-0.7) Basophils # (Auto) 0.1 x10^3/uL (0.0-0.2) Estimated GFR (Non- 17 (>59) EGFR 19 (>59) 25-Hydroxy Vitamin D Total 12.2 ng/mL (30.0-100.0) PTH (Intact) Specimen Description Comment (.) Parathyroid Hormone (Intact) 223 pg/mL (15-65) Calcium (PTH Intact) 8.7 mg/dL (8.7-10.2) Creatinine (PTH Intact) 3.04 mg/dL (0.57-1.00) Phosphorus (PTH Intact) 4.4 mg/dL (2.5-4.5) Activated Partial Thromboplast Time 21 SEC (24-38) Urine Collection Type Unknown Urine Color Yellow Urine Clarity Clear Urine pH 6.5 Urine Specific [place] 1.010 Urine Protein 30 mg/dL (NEG-TRACE) Urine Glucose (UA) Negative mg/dL (NEG) Urine Ketones (Stick) Negative mg/dL (NEG) Urine Blood Negative (NEG) Urine Nitrite Negative (NEG) Urine Bilirubin Negative (NEG) Urine Urobilinogen Dipstick 0.2 mg/dL (0.2 mg/dL) Urine Leukocyte Esterase Small (NEG) Urine RBC 0 /HPF (0-2) Urine WBC 11-20 /HPF (0-4) Urine Squamous Epithelial Cells Mod /LPF Urine Bacteria Moderate /HPF (0-FEW) Sodium Level 140 mmol/L (136-145) Potassium Level 3.4 mmol/L (3.5-5.1) Chloride Level 99 mmol/L (98-107) Carbon Dioxide Level 30 mmol/L (21-32) Anion Gap 11 (6-14) Blood Urea Nitrogen 47 mg/dL (7-20) Creatinine 2.9 mg/dL (0.6-1.0) Estimated GFR (Cockcroft-Gault) 20.5 Glucose Level 122 mg/dL (70-99) Calcium Level 8.5 mg/dL (8.5-10.1) Phosphorus Level 3.8 mg/dL (2.6-4.7) Magnesium Level 2.1 mg/dL (1.8-2.4) Albumin 2.9 g/dL (3.4-5.0) LEONARDO TANNER MD Jul 11, 2017 10:02
[2017-07-11] MEDS: IRON SUCROSE COMPLEX 200 MG in IV NORMAL SALINE 100ML 100 ML IV SCH (10:26)
[2017-07-11] MEDS ORDERED: cloNIDine HCL 0.1 MG TABLET PO ONE (10:30)
[2017-07-11] MEDS: CHOLECALCIFEROL (VITAMIN D3) 5,000 UNIT CAPSULE PO SCH (10:31)
[2017-07-11] MEDS: SPIRONOLACTONE 25 MG TABLET PO SCH (10:31)
[2017-07-11] MEDS: cloNIDine TTS-2 1 PATCH PATCH TD SCH (10:32)
[2017-07-11] MEDS ORDERED: PROPOFOL 40 ML IV ONE (11:14)
[2017-07-11] MEDS ORDERED: LIDOCAINE 2% PF Vial for OR 5 ML VIAL. ONE (11:14)
[2017-07-11] MEDS ORDERED: SULFUR HEXAFLUORIDE MICROSPHR 25 MG VIAL. IVP ONE ×2 (11:39→14:00)
--- NOTE | 2017-07-11 11:52 | RAD ---
APPROVED REPORT Patient Location: IN-PATIENT Indications Uncontrolled HTN Risk Factors Hypertension Renal Artery Doppler Right Renal Artery Left Renal Arter y Proximal 89.0/ cm/secProximal 99.0/ cm/sec Mid 86.0/ cm/secMid Distal 85.0/ cm/secDistal 111.0/ cm/sec Renal/Aorta Ratio 0.80Renal/Aorta Ratio 0.00 Prox. Resistive Index 0.60Prox. Resistive Index 0.50 Mid Resistive Index 0.60Mid Resistive Index Distal Resistive Index 0.70Distal Resistive Index 0.50 Renal Measurements RightLeft Kidney Length9.3 cm cmKidney Length8.7 cm cm Right Additional FindingsLeft Additional Findings Aortic Doppler VelocityWaveform Proximal Aorta 160.0 cm/secTriphasic Findings Garcia scale images the bilateral kidneys reveal appropriate length. Images are limited due to increase d bowel gas. The right renal artery velocities are grossly normal. The left renal artery velocities are grossly no rmal. The right renal vein could not be well evaluated. Spectral images and color Doppler do not reveal any evidence of high-grade stenosis. Critical Notification Critical Value: No <Conclusion> No evidence of significant renal artery stenosis on limited imaging.
[2017-07-11] MEDS ORDERED: LIDOCAINE 2% TOPICAL JELLY 30GM TUBE. TP ONE ×2 (12:01→12:05)
[2017-07-11] MEDS ORDERED: BENZOCAINE ONE 20% MUCOSAL SPRAY. (12:01)
[2017-07-11] MEDS ORDERED: BENZOCAINE ONE 20% MUCOSAL SPRAY. MM (12:05)
[2017-07-11 17:18] LABS: UR PROTEIN RD 39.4 mg/dL (Not Estab.)
[2017-07-11] MEDS ORDERED: LABETALOL HCL 200 MG TABLET PO SCH (21:00)
[2017-07-11] MEDS: ATORVASTATIN CALCIUM 20 MG TABLET PO SCH (21:13)
[2017-07-11 23:10] LABS: HEP A IGM ABDY Negative (Negative); HEP B SURFACE ABDY Non Reactive (.)
[2017-07-12] VITALS (12 sets, daily range): BP systolic 116–188; BP diastolic 54–106
[2017-07-12] MEDS: HEPARIN PF for SUB-Q USE 5,000 UNIT/0.5 ML VIAL. SQ SCH ×3 (05:37→21:34)
--- NOTE | 2017-07-12 08:01 | PDOC ---
SUBJECTIVE ROS WAYNE/ CKD IV - HTNsive Emergecy DOing better overall CVS: no Orthopnea, no CP RESP: no SOB, ? min CASAS GI: no Nausea, no Vomiting : no Dysuria, no Urgency OBJECTIVE Vital Signs Vital Signs Date Time Temp Pulse Resp B/P (MAP) Pulse Ox O2 Delivery O2 Flow Rate FiO2 07/12/17 07:00 53 13 173/98 (123) 98 Room Air 07/12/17 04:00 97.7 97.7 07/11/17 14:00 2.0 PHYSICAL EXAM Physical Exam General Appearance: Awake Alert Oriented x 3 In no Distress Eyes: VIsion Unchanged Conjunctiva Normal EN: No EN Drainage Mucous Memb. moist Neck: no JVD min JVP Supple no Thyromegaly CVS: S1 S2 ? Murmur No Gallop No Rub +2 Edema Resp: rare basal Rales no Rhonchi no Acc. Muscle use GI: BS +ve NO Bruit Non Tender Non Distended : no CVA tenderness; no Suprapubic Tenderness SKIN: no Rashes Breast Exam deferred Mu.Sk: Adequate ROM no Muscle Atrophy Heme: Unable to palpate Obvious LAD no Splenomegaly NEURO: Good Strength and Tone Cranial Nerves II - XII grossly intact Psych: ? Depressed no Active hallucination Assessment & Plan: ARF/ ? ATN: Suspect HTNsive /NS and now progression to ESRD status. Current FLuid and E-lyte status does not necessitate emergent need for Dialysis. Will re-evaluate for Dialysis in am. I had discussed with her yest re s/s which are suggestive of Uremia. She is willing to do HD if needed. 24- hr Urine ongoing. Fluid Overload (POA) - EF preserved ? due to HTNSive Crisis vs due to ESRD status - ct Diuresis as ordered Edema - Diuresis as ordered; IVC Patent on US HTNsive emergency (POA) - BP Up again now that she was off Cardene, Adding Oral Meds - see orderes; KIMBERLY - ve as ordered Anemia: Fedef state as noted so IV Iron as ordered; start Epogen once BP are better if hgb < 11. Transfuse as needed. Low K - PO K replacement as ordered, follow mag Proteinruia - 2.7gms. S. Protein Gap is small so no PEPs ordered yet Anorexia - (improving some) suspect due to Uremia - GFR doesn ot corroborate with s/s - ? Need to eval for Malignancy (defer to Primary team) - She has not had her well women exam in a while ^ed PTH - ? d ue to VIt D def Vit D def - start PO VIt D Discussed Plan of Care and prognosis etc. at length withpt COMMENT/RELEVANT DATA Meds Current Medications Medications (Trade) Dose Ordered Sig/Yeison Start Time Stop Time Status Last Admin Dose Admin Amlodipine Besylate (Norvasc) 10 mg DAILY 07/10/17 10:45 07/11/17 08:39 10 MG Aspirin (Children'S Aspirin) 81 mg DAILYWBKFT 07/10/17 10:15 07/11/17 08:39 81 MG Aspirin (Ecotrin) 81 mg DAILYWBKFT 07/11/17 08:00 UNV Atorvastatin Calcium (Lipitor) 20 mg QHS 07/10/17 21:00 07/11/17 21:13 20 MG Benzocaine (Hurricaine One) 2 spray 1X ONCE 07/11/17 12:05 07/11/17 12:07 DC Carvedilol (Coreg) 6.25 mg BIDWMEALS 07/10/17 17:00 07/11/17 09:35 DC 07/11/17 08:39 6.25 MG Clonidine HCl (Catapres Tts-2) 1 patch WEEKLY 07/11/17 10:30 07/11/17 10:32 1 PATCH Clonidine HCl (Catapres) 0.2 mg 1X ONCE 07/11/17 10:30 07/11/17 10:31 DC 07/11/17 10:32 0.2 MG Fentanyl Citrate (Fentanyl 2ml Vial) 50 mcg PRN Q5MIN PRN 07/11/17 07:00 07/12/17 06:59 DC Furosemide (Lasix) 80 mg BID92 07/11/17 14:00 07/11/17 14:32 80 MG Heparin Sodium (Porcine) (Heparin Sq) 5,000 unit Q8HRS 07/10/17 14:00 07/12/17 05:37 5,000 UNIT Hydralazine HCl (Apresoline) 10 mg PRN Q4HRS PRN 07/10/17 10:45 07/11/17 17:07 10 MG Hydromorphone HCl (Dilaudid) 0.5 mg PRN Q10MIN PRN 07/11/17 07:00 07/12/17 06:59 DC Iron Sucrose 200 mg/Sodium Chloride 110 ml @ 55 mls/hr 3X/WEEK 07/11/17 10:30 07/20/17 10:59 07/11/17 10:26 55 MLS/HR Isosorbide Mononitrate (Imdur) 30 mg DAILY 07/10/17 15:30 07/11/17 08:38 30 MG Labetalol HCl (Trandate) 200 mg BID 07/11/17 21:00 07/11/17 21:12 200 MG Levofloxacin/ Dextrose 50 ml @ 50 mls/hr Q24H 07/10/17 19:00 07/11/17 21:12 50 MLS/HR Lidocaine HCl (Lidocaine Pf 2% Vial) 5 ml STK-MED ONCE 07/11/17 11:14 07/11/17 11:15 DC Lidocaine HCl (Xylocaine 2% Topical 30gm Tube) 1 fredi 1X ONCE 07/11/17 12:05 07/11/17 12:07 DC Magnesium Sulfate/ Dextrose 50 ml @ 25 mls/hr PRN DAILY PRN 07/10/17 10:15 Metoprolol Tartrate (Lopressor) 12.5 mg BID 07/10/17 10:15 07/10/17 11:13 DC Morphine Sulfate 1 mg PRN Q10MIN PRN 07/11/17 07:00 07/12/17 06:59 DC Nicardipine HCl 50 mg/Sodium Chloride 270 ml @ 0 mls/hr CONT PRN 07/09/17 16:00 07/10/17 10:36 DC 07/09/17 17:26 25 MLS/HR Potassium Chloride (Klor-Con) 40 meq BIDWMEALS 07/10/17 11:30 07/11/17 17:07 40 MEQ Prochlorperazine Edisylate (Compazine) 5 mg PACU PRN PRN 07/11/17 07:00 07/12/17 06:59 DC Propofol 40 ml @ As Directed STK-MED ONCE 07/11/17 11:14 07/11/17 11:15 DC Ringer's Solution 1,000 ml @ 30 mls/hr Q24H 07/11/17 07:00 07/11/17 18:59 DC Sodium Cl/Sod Bicarb/Potass Cl/ PEG (Golytely) 4,000 ml 1X ONCE 07/10/17 18:45 07/10/17 18:46 UNV Spironolactone (Aldactone) 50 mg DAILY 07/11/17 10:30 07/11/17 10:31 50 MG Sulfur Hexafluoride Microspheres (Lumason) 25 mg 1X ONCE 07/11/17 14:00 07/11/17 14:01 DC 07/11/17 14:00 25 MG Vitamin D (Vitamin D3) 5,000 unit DAILY 07/11/17 10:30 07/11/17 10:31 5,000 UNIT Lab Laboratory Tests Test 07/11/17 10:50 Hepatitis A IgM Antibody Negative (Negative) Hepatitis B Surface Antigen Negative (Negative) Hepatitis B Surface Antibody Non reactive (.) Hepatitis B Core Total Antibody Negative (Negative) Hepatitis B Core IgM Antibody Negative (Negative) Hepatitis C Antibody <0.1 s/co ratio LEONARDO TANNER MD Jul 12, 2017 08:01
--- NOTE | 2017-07-12 08:37 | PDOC2 ---
CONSULT Date of Consult Date of Consult DATE: 07/12/17 TIME: 08:27 Reason for Consult Reason for Consult: LV mass Identification/Chief Complaint Chief Complaint CHF Problems: Source Source: Chart review, Patient History of Present Illness Reason for Visit: 52 year old female, admitted with CHF and hypertensive crisis. Incidental finding of a pedunculated LV mass, which appears most likely to a benign tumor, could also be a thrombus. This was confirmed by KEVIN yesterday. She has a baseline creatinine of 3. Past Medical History Cardiovascular: HTN Past Surgical History Past Surgical History: Tubal Ligation, Other (oopherectomy) Family History Family History: Cancer, Diabetes, Hypertension Social History 1 pack per day (>30 yrs) ALCOHOL: none Drugs: None Lives: Alone Current Medications Current Medications Current Medications Nicardipine HCl 50 mg/Sodium Chloride 270 ml @ 0 mls/hr CONT PRN IV SEE I/O RECORD Last administered on 07/09/17 17:26; Start 07/09/17 at 16:00; Stop 07/10 at 10:36; Status DC Levofloxacin/ Dextrose 100 ml @ 100 mls/hr Q24H IV Last administered on 19:44; Start 07/09/17 at 19:00; Stop 07/10/17 at 17:06; Status DC Magnesium Sulfate/ Dextrose 50 ml @ 25 mls/hr PRN DAILY PRN IV for Mag < 1.7 on am labs; Start 07/10/17 at 10:15 Metoprolol Tartrate (Lopressor) 12.5 mg BID PO ; Start 07/10/17 at 10:15; Stop 07/10/17 at 11:13; Status DC Aspirin (Children'S Aspirin) 81 mg DAILYWBKFT PO Last administered on 08:39; Start 07/10/17 at 10:15 Amlodipine Besylate (Norvasc) 10 mg DAILY PO Last administered on 07/11/17 08: 39; Start 07/10/17 at 10:45 Furosemide (Lasix) 40 mg BID92 IVP Last administered on 07/11/17 08:40; Start 07/10/17 at 11:00; Stop 07/11/17 at 10:00; Status DC Potassium Chloride (Klor-Con) 40 meq BIDWMEALS PO Last administered on 17:07; Start 07/10/17 at 11:30 Heparin Sodium (Porcine) (Heparin Sq) 5,000 unit Q8HRS SQ Last administered on 07/12/17 05:37; Start 07/10/17 at 14:00 Carvedilol (Coreg) 6.25 mg BIDWMEALS PO Last administered on 07/11/17 08:39; Start 07/10/17 at 17:00; Stop 07/11/17 at 09:35; Status DC Hydralazine HCl (Apresoline) 10 mg PRN Q4HRS PRN IVP ELEVATED BP, SEE COMMENTS Last administered on 07/11/17 17:07; Start 07/10/17 at 10:45 Aspirin (Ecotrin) 81 mg DAILYWBKFT PO ; Start 07/11/17 at 08:00; Status UNV Atorvastatin Calcium (Lipitor) 20 mg QHS PO Last administered on 07/11/17 21: 13; Start 07/10/17 at 21:00 Isosorbide Mononitrate (Imdur) 30 mg DAILY PO Last administered on 07/11/17 08 :38; Start 07/10/17 at 15:30 Levofloxacin/ Dextrose 50 ml @ 50 mls/hr Q24H IV Last administered on 21:12; Start 07/10/17 at 19:00 Fentanyl Citrate (Fentanyl 2ml Vial) 25 mcg PRN Q5MIN PRN IV MILD PAIN; Start 07/11/17 at 07:00; Stop 07/12/17 at 06:59; Status DC Fentanyl Citrate (Fentanyl 2ml Vial) 50 mcg PRN Q5MIN PRN IV MODERATE PAIN; Start 07/11/17 at 07:00; Stop 07/12/17 at 06:59; Status DC Morphine Sulfate 1 mg PRN Q10MIN PRN IV SEVERE PAIN; Start 07/11/17 at 07:00; Stop 07/12/17 at 06:59; Status DC Ringer's Solution 1,000 ml @ 30 mls/hr Q24H IV ; Start 07/11/17 at 07:00; Stop 07/11/17 at 18:59; Status DC Lidocaine HCl 2 ml PRN 1X PRN ID PRIOR TO IV START; Start 07/11/17 at 07:00; Stop 07/12/17 at 06:59; Status DC Hydromorphone HCl (Dilaudid) 0.5 mg PRN Q10MIN PRN IV SEV PAIN, Second choice; Start 07/11/17 at 07:00; Stop 07/12/17 at 06:59; Status DC Prochlorperazine Edisylate (Compazine) 5 mg PACU PRN PRN IV NAUSEA, MRX1; Start 07/11/17 at 07:00; Stop 07/12/17 at 06:59; Status DC Sodium Cl/Sod Bicarb/Potass Cl/ PEG (Golytely) 4,000 ml 1X ONCE PO ; Start at 18:45; Stop 07/10/17 at 18:46; Status UNV Labetalol HCl (Trandate) 200 mg BID PO Last administered on 07/11/17 21:12; Start 07/11/17 at 21:00; Stop 07/12/17 at 07:56; Status DC Iron Sucrose 200 mg/Sodium Chloride 110 ml @ 55 mls/hr 3X/WEEK IV ; Start 07/11 at 09:30; Stop 07/11/17 at 09:58; Status DC Iron Sucrose 200 mg/Sodium Chloride 110 ml @ 55 mls/hr 3X/WEEK IV Last administered on 07/11/17 10:26; Start 07/11/17 at 10:30; Stop 07/20/17 at 10:59 Furosemide (Lasix) 80 mg BID92 IVP Last administered on 07/11/17 14:32; Start 07/11/17 at 14:00 Vitamin D (Vitamin D3) 5,000 unit DAILY PO Last administered on 07/11/17 10:31 ; Start 07/11/17 at 10:30 Spironolactone (Aldactone) 50 mg DAILY PO Last administered on 07/11/17 10:31 ; Start 07/11/17 at 10:30 Clonidine HCl (Catapres Tts-2) 1 patch WEEKLY TD Last administered on 10:32; Start 07/11/17 at 10:30 Clonidine HCl (Catapres) 0.2 mg 1X ONCE PO Last administered on 07/11/17 10: 32; Start 07/11/17 at 10:30; Stop 07/11/17 at 10:31; Status DC Lidocaine HCl (Lidocaine Pf 2% Vial) 5 ml STK-MED ONCE .ROUTE ; Start 07/11/17 at 11:14; Stop 07/11/17 at 11:15; Status DC Propofol 40 ml @ As Directed STK-MED ONCE IV ; Start 07/11/17 at 11:14; Stop at 11:15; Status DC Sulfur Hexafluoride Microspheres (Lumason) 25 mg STK-MED ONCE IVP ; Start at 11:39; Stop 07/11/17 at 11:40; Status DC Benzocaine (Hurricaine One) 1 spray STK-MED ONCE .ROUTE ; Start 07/11/17 at 12: 01; Stop 07/11/17 at 12:02; Status DC Lidocaine HCl (Xylocaine 2% Topical 30gm Tube) 30 fredi STK-MED ONCE TP ; Start at 12:01; Stop 07/11/17 at 12:02; Status DC Benzocaine (Hurricaine One) 2 spray 1X ONCE MM ; Start 07/11/17 at 12:05; Stop 07/11/17 at 12:07; Status DC Lidocaine HCl (Xylocaine 2% Topical 30gm Tube) 1 fredi 1X ONCE TP ; Start at 12:05; Stop 07/11/17 at 12:07; Status DC Sulfur Hexafluoride Microspheres (Lumason) 25 mg 1X ONCE IVP Last administered on 07/11/17t 14:00; Start 07/11/17 at 14:00; Stop 07/11/17 at 14:01 ; Status DC Hydralazine HCl (Apresoline) 50 mg TID PO ; Start 07/12/17 at 09:00 Regadenoson (Lexiscan) 0.4 mg 1X ONCE IV ; Start 07/12/17 at 09:00; Stop at 09:01 Active Scripts Active Reported No Known Medications Prior To Admisstion (Info) Each 1 Each MC Allergies Allergies: Coded Allergies: No Known Drug Allergies (Unverified , 07/09/17) ROS General: No: Chills, Night Sweats, Fatigue, Malaise, Appetite PSYCHOLOGICAL ROS: No: Anxiety, Behavioral Disorder, Concentration difficultie , Decreased libido, Depression, Disorientation, Hallucinations, Hostility, Irritablity, Memory difficulties, Mood Swings, Obsessive thoughts, Physical abuse, Sexual abuse, Sleep disturbances, Suicidal ideation Eyes: No Blurry vision, No Decreased vision, No Double vision, No Dry eyes, No Excessive tearing, No Eye Pain, No Itchy Eyes, No Loss of vision, No Photophobia , No Scotomata, No Uses contacts, No Uses glasses HEENT: No: Heacaches, Visual Changes, Hearing change, Nasal congestion, Nasal discharge, Oral lesions, Sinus pain, Sore Throat, Epistaxis, Sneezing, Snoring, Tinnitus, Vertigo, Vocal changes ALLERGY AND IMMUNOLOGY: No: Hives, Insect Bite Sensitivity, Itchy/Watery Eyes, Nasal Congestion, Post Nasal Drip, Seasonal Allergies Hematological and Lymphatic: No: Bleeding Problems, Blood Clots, Blood Transfusions, Brusing, Night Sweats, Pallor, Swollen Lymph Nodes ENDOCRINE: No: Breast Changes, Galactorrhea, Hair Pattern Changes, Hot Flashes , Malaise/lethargy, Mood Swings, Palpitations, Polydipsia/polyuria, Skin Changes , Temperature Intolerance, Unexpected Weight Changes Breast: No New/Changing Breast Lumps, No Nipple changes, No Nipple discharge Respiratory: YES: Shortness of breath, No: Cough, Hemoptysis, Orthopnea, Pleuritic Pain, SOB with excertion, Sputum Changes, Stridor, Tachypnea, Wheezing Cardiovascular: No Chest Pain, No Palpitations, No Orthopnea, No Paroxysmal Noc. Dyspnea, No Edema, No Lt Headedness Gastrointestinal: Yes Other, No Nausea, No Vomiting, No Abdominal Pain, No Diarrhea, No Constipation, No Melena, No Hematochezia Genitourinary: No Dysuria, No Frequency, No Incontinence, No Hematuria, No Retention, No Discharge, No Urgency, No Pain, No Flank Pain Musculoskeletal: No Gait Disturbance, No Joint Pain, No Joint Stiffness, No Joint Swelling, No Muscle Pain, No Muscular Weakness, No Pain In:, No Swelling In: Neurological: No Behavorial Changes, No Bowel/Bladder ControlChng, No Confusion , No Dizziness, No Gait Disturbance, No Headaches, No Impaired Coord/balance, No Memory Loss, No Numbness/Tingling, No Seizures, No Speech Problems, No Tremors, No Visual Changes, No Weakness Skin: No Dry Skin, No Eczema, No Hair Changes, No Lumps, No Mole Changes, No Mottling, No Nail Changes, No Pruritus, No Rash, No Skin Lesion Changes, No Acne Physical Exam General: Alert, Oriented X3, No acute distress HEENT: Atraumatic, PERRLA Lungs: Clear to auscultation Heart: Regular rate, Normal S1, Normal S2 Abdomen: Soft, No hepatosplenomegaly Extremities: No edema Skin: No significant lesion Neuro: Normal gait, Normal speech, Strength at 5/5 X4 ext, Normal tone, Sensation intact, Cranial nerves 3-12 NL Psych/Mental Status: Mental status NL MUSCULOSKELETAL: No deformity Vitals VITALS Vital Signs Date Time Temp Pulse Resp B/P (MAP) Pulse Ox O2 Delivery O2 Flow Rate FiO2 07/12/17 08:00 97.5 61 18 148/83 (104) 99 Room Air 97.5 07/11/17 14:00 2.0 Labs Labs Laboratory Tests Test 07/10/17 11:20 07/10/17 15:35 07/10/17 17:15 07/11/17 06:05 White Blood Count 11.2 x10^3/uL (4.0-11.0) Red Blood Count 4.72 x10^6/uL (3.50-5.40) Hemoglobin 13.5 g/dL (12.0-15.5) 12.7 g/dL (12.0-15.5) Hematocrit 42.3 % (36.0-47.0) Mean Corpuscular Volume 90 fL (79-100) Mean Corpuscular Hemoglobin 29 pg (25-35) Mean Corpuscular Hemoglobin Concent 32 g/dL (31-37) Red Cell Distribution Width 18.6 % (11.5-14.5) Platelet Count 231 x10^3/uL (140-400) Neutrophils (%) (Auto) 81 % (31-73) Lymphocytes (%) (Auto) 11 % (24-48) Monocytes (%) (Auto) 6 % (0-9) Eosinophils (%) (Auto) 0 % (0-3) Basophils (%) (Auto) 1 % (0-3) Neutrophils # (Auto) 9.2 x10^3uL (1.8-7.7) Lymphocytes # (Auto) 1.3 x10^3/uL (1.0-4.8) Monocytes # (Auto) 0.7 x10^3/uL (0.0-1.1) Eosinophils # (Auto) 0.0 x10^3/uL (0.0-0.7) Basophils # (Auto) 0.1 x10^3/uL (0.0-0.2) Estimated GFR (Non- 17 (>59) EGFR 19 (>59) 25-Hydroxy Vitamin D Total 12.2 ng/mL (30.0-100.0) PTH (Intact) Specimen Description Comment (.) Parathyroid Hormone (Intact) 223 pg/mL (15-65) Calcium (PTH Intact) 8.7 mg/dL (8.7-10.2) Creatinine (PTH Intact) 3.04 mg/dL (0.57-1.00) Phosphorus (PTH Intact) 4.4 mg/dL (2.5-4.5) Activated Partial Thromboplast Time 21 SEC (24-38) Urine Collection Type Unknown Urine Color Yellow Urine Clarity Clear Urine pH 6.5 Urine Specific [place] 1.010 Urine Protein 39.4 mg/dL (Not Estab.) Urine Glucose (UA) Negative mg/dL (NEG) Urine Ketones (Stick) Negative mg/dL (NEG) Urine Blood Negative (NEG) Urine Nitrite Negative (NEG) Urine Bilirubin Negative (NEG) Urine Urobilinogen Dipstick 0.2 mg/dL (0.2 mg/dL) Urine Leukocyte Esterase Small (NEG) Urine RBC 0 /HPF (0-2) Urine WBC 11-20 /HPF (0-4) Urine Squamous Epithelial Cells Mod /LPF Urine Bacteria Moderate /HPF (0-FEW) Urine Creatinine 14.1 mg/dL (Not Estab.) Urine Protein/Creatinine Ratio 2794 mg/g creat (0-200) Sodium Level 140 mmol/L (136-145) Potassium Level 3.4 mmol/L (3.5-5.1) Chloride Level 99 mmol/L (98-107) Carbon Dioxide Level 30 mmol/L (21-32) Anion Gap 11 (6-14) Blood Urea Nitrogen 47 mg/dL (7-20) Creatinine 2.9 mg/dL (0.6-1.0) Estimated GFR (Cockcroft-Gault) 20.5 Glucose Level 122 mg/dL (70-99) Calcium Level 8.5 mg/dL (8.5-10.1) Phosphorus Level 3.8 mg/dL (2.6-4.7) Magnesium Level 2.1 mg/dL (1.8-2.4) Albumin 2.9 g/dL (3.4-5.0) Test 07/11/17 10:50 Hepatitis A IgM Antibody Negative (Negative) Hepatitis B Surface Antigen Negative (Negative) Hepatitis B Surface Antibody Non reactive (.) Hepatitis B Core Total Antibody Negative (Negative) Hepatitis B Core IgM Antibody Negative (Negative) Hepatitis C Antibody <0.1 s/co ratio Laboratory Tests Test 07/11/17 10:50 Hepatitis A IgM Antibody Negative (Negative) Hepatitis B Surface Antigen Negative (Negative) Hepatitis B Surface Antibody Non reactive (.) Hepatitis B Core Total Antibody Negative (Negative) Hepatitis B Core IgM Antibody Negative (Negative) Hepatitis C Antibody <0.1 s/co ratio Assessment/Plan Assessment/Plan 52 year old female, admitted with CHF and hypertensive crisis. Incidental finding of a pedunculated LV mass, which appears most likely to a benign tumor, could also be a thrombus. I am recommending excision of this LV mass during this admission. This mass poses a significant a risk for major stroke, circulatory collapse if it dislodges and obstructs the LV outflow/aortic valve, systemic embolization. I think it is also effecting LV function since its occupying a significant space in the LV The risk of surgery is that she will almost certainly go on dialysis postop, which will likely be permanent. Patient would like to consider her options If she decides to proceed with excision of mass, she will need a dialysis catheter placement preop. She will also need a coronary angiography FAYE BERNABE MD Jul 12, 2017 08:37
[2017-07-12] MEDS: FUROSEMIDE 40 MG/4 ML VIAL. IVP SCH ×2 (08:38→14:28)
[2017-07-12 08:44] LABS: BASO # 0.1 x10^3/uL (0.0-0.2); BASO % 1 % (0-3); EOS % 0 % (0-3); HEMATOCRIT 44.7 % (36.0-47.0); HEMOGLOBIN 13.9 g/dL (12.0-15.5); LYMPH # 1.1 x10^3/uL (1.0-4.8); LYMPH % 11 % (24-48); MEAN CORPUSCULAR HEMOGLOBIN 28 pg (25-35); MEAN CORPUSCULAR HGB CONC 31 g/dL (31-37); MEAN CORPUSCULAR VOLUME 91 fL (79-100); MONO % 8 % (0-9); NEUT % 80 % (31-73); PLATELET COUNT 243 x10^3/uL (140-400); RED BLOOD COUNT 4.92 x10^6/uL (3.50-5.40); RED CELL DISTRIBUTION WIDTH 19.4 % (11.5-14.5); WHITE BLOOD COUNT 9.5 x10^3/uL (4.0-11.0)
[2017-07-12] MEDS ORDERED: REGADENOSON 0.4 MG/5 ML DISP.SYRIN. IV ONE (09:00)
[2017-07-12 09:11] LABS: ALBUMIN 3.1 g/dL (3.4-5.0); CALCIUM 9.3 mg/dL (8.5-10.1); CREATININE 2.7 mg/dL (0.6-1.0); GFR 22.3; MAGNESIUM 2.1 mg/dL (1.8-2.4); PHOSPHORUS 4.4 mg/dL (2.6-4.7); POTASSIUM 4.6 mmol/L (3.5-5.1)
--- NOTE | 2017-07-12 09:27 | PDOC ---
PROGRESS NOTES Chief Complaint Chief Complaint Acute hypoxic respir failure Hypertensive urgency ASSESSMENT AND PLAN: 1. L Ventricular mass/thrombus: CV surgery consulted, rec excision. would require caht prior, also PermCath for probable perm HD 2. CHF exacerbation: symptomatically improved. echo with mass in LV impeding fxn 3. Hypertensive urgency: on BB, Norvasc, added clonidine. add hydralazine as per nephro 4. Renal failure: creat essentially stable. nephrology following. prob will require HD with or without cardiac surgery 5. Anemia: combined iron deficiency and inflammatory (CHF) etiology. on IV iron 6. Hypokalemia: improving. cautious repletion in face of RF. 7. Hypomagnesemia: replete PRN 8. prophylaxis: heparin SQ All issues d/w pt. she has no questions. Encouraged her to discuss issues with ehr family and designate a POA for all eventualities History of Present Illness History of Present Illness feels ok, denies pain. Vitals Vitals Vital Signs Date Time Temp Pulse Resp B/P (MAP) Pulse Ox O2 Delivery O2 Flow Rate FiO2 07/12/17 08:00 97.5 61 18 148/83 (104) 99 Room Air 97.5 07/11/17 14:00 2.0 Physical Exam General: Alert, Oriented X3, No acute distress Heart: Regular rate, Normal S1, Normal S2 Lungs: Clear Abdomen: Soft, No hepatosplenomegaly Extremities: No edema Skin: No significant lesion Labs LABS Laboratory Tests Test 07/11/17 10:50 07/12/17 08:05 Hepatitis A IgM Antibody Negative (Negative) Hepatitis B Surface Antigen Negative (Negative) Hepatitis B Surface Antibody Non reactive (.) Hepatitis B Core Total Antibody Negative (Negative) Hepatitis B Core IgM Antibody Negative (Negative) Hepatitis C Antibody <0.1 s/co ratio White Blood Count 9.5 x10^3/uL (4.0-11.0) Red Blood Count 4.92 x10^6/uL (3.50-5.40) Hemoglobin 13.9 g/dL (12.0-15.5) Hematocrit 44.7 % (36.0-47.0) Mean Corpuscular Volume 91 fL (79-100) Mean Corpuscular Hemoglobin 28 pg (25-35) Mean Corpuscular Hemoglobin Concent 31 g/dL (31-37) Red Cell Distribution Width 19.4 % (11.5-14.5) Platelet Count 243 x10^3/uL (140-400) Neutrophils (%) (Auto) 80 % (31-73) Lymphocytes (%) (Auto) 11 % (24-48) Monocytes (%) (Auto) 8 % (0-9) Eosinophils (%) (Auto) 0 % (0-3) Basophils (%) (Auto) 1 % (0-3) Neutrophils # (Auto) 7.7 x10^3uL (1.8-7.7) Lymphocytes # (Auto) 1.1 x10^3/uL (1.0-4.8) Monocytes # (Auto) 0.7 x10^3/uL (0.0-1.1) Eosinophils # (Auto) 0.0 x10^3/uL (0.0-0.7) Basophils # (Auto) 0.1 x10^3/uL (0.0-0.2) Sodium Level 137 mmol/L (136-145) Potassium Level 4.6 mmol/L (3.5-5.1) Chloride Level 99 mmol/L (98-107) Carbon Dioxide Level 26 mmol/L (21-32) Anion Gap 12 (6-14) Blood Urea Nitrogen 43 mg/dL (7-20) Creatinine 2.7 mg/dL (0.6-1.0) Estimated GFR (Cockcroft-Gault) 22.3 Glucose Level 101 mg/dL (70-99) Calcium Level 9.3 mg/dL (8.5-10.1) Phosphorus Level 4.4 mg/dL (2.6-4.7) Magnesium Level 2.1 mg/dL (1.8-2.4) Albumin 3.1 g/dL (3.4-5.0) JOEY OSUNA MD Jul 12, 2017 09:27
--- NOTE | 2017-07-12 10:18 | PDOC ---
TING CARRILLO GRAPHIC ENGINEER 07/12/17 1018: CARDIO Progress Notes Date and Time Date of Service 07/12/2017 Time of Evaluation 1000 Subjective Subjective: No Chest Pain, No shortness of breath, No Palpitations, No Dizziness, Other (feels better today, no discomfort) Vitals Vitals Vital Signs Date Time Temp Pulse Resp B/P (MAP) Pulse Ox O2 Delivery O2 Flow Rate FiO2 07/12/17 08:00 97.5 61 18 148/83 (104) 99 Room Air 97.5 07/11/17 14:00 2.0 Weight Weight [ ] Input and Output Intake and Output Intake and Output 07/13/17 06:59 Output Total 350 ml Balance -350 ml Output Urine Total 350 ml Laboratory Labs Laboratory Tests Test 07/11/17 10:50 07/12/17 08:05 Hepatitis A IgM Antibody Negative (Negative) Hepatitis B Surface Antigen Negative (Negative) Hepatitis B Surface Antibody Non reactive (.) Hepatitis B Core Total Antibody Negative (Negative) Hepatitis B Core IgM Antibody Negative (Negative) Hepatitis C Antibody <0.1 s/co ratio White Blood Count 9.5 x10^3/uL (4.0-11.0) Red Blood Count 4.92 x10^6/uL (3.50-5.40) Hemoglobin 13.9 g/dL (12.0-15.5) Hematocrit 44.7 % (36.0-47.0) Mean Corpuscular Volume 91 fL (79-100) Mean Corpuscular Hemoglobin 28 pg (25-35) Mean Corpuscular Hemoglobin Concent 31 g/dL (31-37) Red Cell Distribution Width 19.4 % (11.5-14.5) Platelet Count 243 x10^3/uL (140-400) Neutrophils (%) (Auto) 80 % (31-73) Lymphocytes (%) (Auto) 11 % (24-48) Monocytes (%) (Auto) 8 % (0-9) Eosinophils (%) (Auto) 0 % (0-3) Basophils (%) (Auto) 1 % (0-3) Neutrophils # (Auto) 7.7 x10^3uL (1.8-7.7) Lymphocytes # (Auto) 1.1 x10^3/uL (1.0-4.8) Monocytes # (Auto) 0.7 x10^3/uL (0.0-1.1) Eosinophils # (Auto) 0.0 x10^3/uL (0.0-0.7) Basophils # (Auto) 0.1 x10^3/uL (0.0-0.2) Sodium Level 137 mmol/L (136-145) Potassium Level 4.6 mmol/L (3.5-5.1) Chloride Level 99 mmol/L (98-107) Carbon Dioxide Level 26 mmol/L (21-32) Anion Gap 12 (6-14) Blood Urea Nitrogen 43 mg/dL (7-20) Creatinine 2.7 mg/dL (0.6-1.0) Estimated GFR (Cockcroft-Gault) 22.3 Glucose Level 101 mg/dL (70-99) Calcium Level 9.3 mg/dL (8.5-10.1) Phosphorus Level 4.4 mg/dL (2.6-4.7) Magnesium Level 2.1 mg/dL (1.8-2.4) Albumin 3.1 g/dL (3.4-5.0) Microbiology Micro Microbiology 07/10/17 Urine Culture - Preliminary, Resulted 07/10/17 Urine Culture Result 1 (DEEPTHI) - Preliminary, Resulted Physical Exam HEENT: Neck Supple W Full Motion Chest: Symmetric LUNGS: Clear to Auscultation Heart: S1S2, RRR (SR and no significant ectopies) Abdomen: Soft N/T Extremities: No Calf Tenderness, Other (1-2+ bilateral LE pitting edema) Neurology: alert, oriented, follow commands Assessment Assessment 1. Malignant HTN: labile. No KIMBERLY. 2. WAYNE on CKD: per nephrology 3. Acute CHF with systolic/diastolic dysfunction: appears compensated 4. Elevated troponin: CP free. EKG SR with LVH. Troponin peaked at 0.3, possibly demand mediated 5. Likely SUZANNE 6. Tobaccoism 7. Pedunculated LV mass: benign tumor and/or thrombus per CTS. Excision recommended by CTS Recommendations 1. Further recommendation pending MPI results today 2. Smoking cessation. Continue current medical regimen, Uptitrate BP meds as warranted. 3. Diuretic therapy to nephrology GWYN LENNON MD 07/12/17 9629: CARDIO Progress Notes Assessment Assessment Patient seen and examined. Agree with PAYLOADER MACHINE OPERATOR's assessment and plan. Patient is agreeable for surgical removal of left ventricular mass (thrombus versus benign tumor) as recommended by CT surgery Plan for cardiac catheterization tomorrow in anticipation of surgery Continue management of renal insufficiency per nephrology team TING CARRILLO APRN Jul 12, 2017 10:18 GWYN LENNON MD Jul 12, 2017 16:19
[2017-07-12] MEDS ORDERED: ISOSORBIDE MONONITRATE ER 30 MG TAB.ER.24H PO ONE (10:30)
[2017-07-12] MEDS: CHOLECALCIFEROL (VITAMIN D3) 5,000 UNIT CAPSULE PO SCH (10:31)
[2017-07-12] MEDS: POTASSIUM CHLORIDE 20 MEQ TABLET.ER. PO SCH ×2 (10:32→16:59)
[2017-07-12] MEDS: ASPIRIN CHEWABLE 81 MG TABLET. PO SCH (10:32)
[2017-07-12] MEDS: SPIRONOLACTONE 25 MG TABLET PO SCH (10:32)
[2017-07-12] MEDS: amLODIPine BESYLATE 10 MG TABLET PO SCH (10:34)
--- NOTE | 2017-07-12 12:19 | RAD ---
APPROVED REPORT Test Type: Pharmacological Stress Nurse/Tech: Sophie Low R.N. Test Indications: abn echo, htn Cardiac History: htn, Medications: see ehr Medical History: see ehr, ESRD Resting ECG: SB, flipped TS, ST seg depression in mult leads, long QT Resting Heart Rate: 57 bpm Resting Blood Pressure: 170/96mmHg Pretest Chest Pain: No chest pain Nurse/Tech Notes lungs cta, heart tones regular, good radial pulse Consent: The procedure was explained to the patient in lay terms. Informed consent was witnessed. Sacha eout was entered into [employer]. History and Stress Test performed by CODY Espino Pharm. Details Pharmacologic stress testing was performed using 0.4mg per 5ml of regadenoson given intravenously ove r 7-10 seconds. Stress Symptoms No chest pain or symptoms.Dyspnea POST EXERCISE Reason for Termination: Infusion complete Target HR: No Max HR: 68 bpm Max Blood Pressure: 169/93mmHg Chest Pain: No. Arrhythmia: No. ST Change: No. INTERPRETATION Stress EKG Conclusion: Baseline EKG showed sinus rhythm with inferolateral T-wave inversions. Nondiag nostic changes at peak stress. No arrhythmias. Imaging Protocol IMAGE PROTOCOL: Rest Tc-99m/stress Tc-99m 1 day Rest: Stress: Viability: Radiopharm.Tc99m [id number] Sestamibi Dose11.4mCi 34.8mCi Img Date 07/12/2017 07/12/2017 Inj-Img [id number]. 60min. Rest Admin Site:IV - Left AntecubitalAdministrator:CHAVA Anderson, ARRT (R)(N) Stress Admin Site: IV - Left AntecubitalAdministrator: CODY Espino STRESS DATA End Diast. Vol.107.0mlAv. Heart Rate70.0bpm End Syst. Vol.65.0mlCO Index BSA0.0L/min Myocardial Fgia596.0gEject. Bqfjhbrj47.0% Stress Rates Pk. Fill Rate1.06EDV/secLVtime Pk. Fill 127.44msec Pk. Empty Rate2.05ESV/secLVtime Pk. Pidkt387.92msec 11/14 Pk. Fill0.73EDV/sec Stress Scores Regional WT2.00Summed WT37.00 Regional WM2.00Summed WM32.00 Study quality was good. Left Ventricular size was Normal at Rest and Stress. LV Perfusion Scintigraphic images did not show any significant fixed or reversible defects. Wall Motion Moderate global left ventricle systolic dysfunction with ejection fraction calculated at 39%. LV Perf. Quant 17 Seg. SSS4.00 17 Seg. SRS2.00 17 Seg. SDS2.00 Stress Defect Extent (% LAD)0.00Rest Defect Extent (% LAD)1.90Rev. Defect Extent (% LAD)0.00 Stress Defect Extent (% LCX) 33.80Rest Defect Extent (% LCX)15.00Rev. Defect Extent (% LCX)0.00 Stress Defect Extent (% RCA)0.00Rest Defect Extent (% RCA)0.00Rev. Defect Extent (% RCA)0.00 Stress Defect Extent (% EMMANUEL)6.70Rest Defect Extent (% EMMANUEL)5.40Rev. Defect Extent (% EMMANUEL)0.00 Conclusion 1. Regadenoson cardioisotope stress test did not show any evidence of ischemia or infarct. 2. Moderate global left ventricle systolic dysfunction with ejection fraction calculated at 39%. 3. Low to intermediate risk for cardiac events.
[2017-07-12 18:14] LABS: PTH INTACT 273 pg/mL (15-65)
[2017-07-12] MEDS: ATORVASTATIN CALCIUM 20 MG TABLET PO SCH (21:28)
[2017-07-12 23:10] LABS: TOTAL SERUM CREATININE 2.48 mg/dL (0.57-1.00); TOTAL URINE CREATININE 25.4 mg/dL (Not Estab.)
[2017-07-13] VITALS (13 sets, daily range): BP systolic 129–163; BP diastolic 64–89
[2017-07-13 05:55] LABS: BASO # 0.1 x10^3/uL (0.0-0.2); BASO % 1 % (0-3); EOS % 0 % (0-3); HEMOGLOBIN 13.3 g/dL (12.0-15.5); LYMPH % 10 % (24-48); MEAN CORPUSCULAR HEMOGLOBIN 29 pg (25-35); MEAN CORPUSCULAR HGB CONC 32 g/dL (31-37); MEAN CORPUSCULAR VOLUME 88 fL (79-100); MONO % 10 % (0-9); NEUT % 80 % (31-73); PLATELET COUNT 244 x10^3/uL (140-400); RED BLOOD COUNT 4.64 x10^6/uL (3.50-5.40); RED CELL DISTRIBUTION WIDTH 19.1 % (11.5-14.5); WHITE BLOOD COUNT 10.5 x10^3/uL (4.0-11.0)
[2017-07-13] MEDS: HEPARIN PF for SUB-Q USE 5,000 UNIT/0.5 ML VIAL. SQ SCH ×3 (06:08→21:32)
[2017-07-13 06:17] LABS: ALBUMIN 2.9 g/dL (3.4-5.0); CREATININE 3.2 mg/dL (0.6-1.0); GFR 18.3; PHOSPHORUS 4.2 mg/dL (2.6-4.7); POTASSIUM 4.8 mmol/L (3.5-5.1)
[2017-07-13] MEDS: ASPIRIN CHEWABLE 81 MG TABLET. PO SCH (08:00)
[2017-07-13] MEDS ORDERED: IOHEXOL 350 MG/ML 100 ML VIAL. ONE (08:54)
[2017-07-13] MEDS ORDERED: IODIXANOL 320 MG/ML 100 ML VIAL. ONE (08:55)
[2017-07-13] MEDS ORDERED: LIDOCAINE 2% 20 ML VIAL. ONE (08:55)
[2017-07-13] MEDS: CHOLECALCIFEROL (VITAMIN D3) 5,000 UNIT CAPSULE PO SCH (09:00)
[2017-07-13] MEDS: FUROSEMIDE 40 MG/4 ML VIAL. IVP SCH ×2 (09:00→14:00)
[2017-07-13] MEDS ORDERED: HEPARIN for IV BOLUS 10,000 UNIT/10 ML VIAL. ONE ×2 (09:05→14:25)
[2017-07-13] MEDS ORDERED: fentaNYL PF VIAL 100 MCG/2 ML VIAL ONE ×2 (09:05→14:39)
[2017-07-13] MEDS ORDERED: VERAPAMIL 5 MG/2 ML VIAL. ONE (09:05)
[2017-07-13] MEDS ORDERED: MIDAZOLAM HCL/PF 5 MG/5 ML VIAL. ONE (09:06)
[2017-07-13] MEDS ORDERED: NITROGLYCERIN 200 MCG/2 ML SYRINGE FOR CATH/VASC LAB. ONE (09:07)
[2017-07-13] MEDS ORDERED: fentaNYL PF VIAL 100 MCG/2 ML VIAL IV ONE ×2 (09:30→15:15)
[2017-07-13] MEDS ORDERED: LIDOCAINE 2% 20 ML VIAL. IJ ONE (09:30)
[2017-07-13] MEDS ORDERED: IODIXANOL 320 MG/ML 100 ML VIAL. IART ONE (09:30)
[2017-07-13] MEDS ORDERED: NITROGLYCERIN 200 MCG/2 ML SYRINGE FOR CATH/VASC LAB. IART ONE (09:30)
[2017-07-13] MEDS ORDERED: VERAPAMIL 5 MG/2 ML VIAL. IART ONE (09:30)
[2017-07-13] MEDS ORDERED: MIDAZOLAM HCL/PF 5 MG/5 ML VIAL. IV ONE (09:30)
[2017-07-13] MEDS ORDERED: HEPARIN for IV BOLUS 10,000 UNIT/10 ML VIAL. IART ONE (09:30)
[2017-07-13] MEDS ORDERED: CONTRAST GIVEN MC PRN (09:45)
[2017-07-13 09:57] LABS: PROTHROMBIN TIME PATIENT 12.8 SEC (11.7-14.0)
--- NOTE | 2017-07-13 10:05 | CARD ---
APPROVED REPORT Procedure(s) performed: Left heart catheterization and selective coronary angiography via right trans radial approach Moderate sedation: 24 minutes INDICATION The indication(s) include : Preoperative evaluation, cardiomyopathy and left ventricular mass. PROCEDURE NARRATIVE After explaining the risks, benefits and alternative options, informed consent was obtained from shereen ent. Patient was brought to the cardiac Merchandise Clerk and right wrist was prepped and draped in the usual fashion after confirming a positive modified William's test. Arterial access was obtained in the [facility] t radial artery and a 6 [place] sheath was inserted. 6 [place] Vern catheter was used to perform ilir ective angiography of the left and right coronary arteries. Left ventriculography was not performed d ue to elevated creatinine. Patient tolerated the procedure well. Hemostasis was achieved using TR ba nd. There were no immediate complications. The following findings were noted. FINDINGS a. The left main coronary artery arose from the left sinus of Valsalva, gave rise to the left anteri or descending and left circumflex arteries and did not show any significant stenosis. b. The left anterior descending artery did not show any significant stenosis. c. The left circumflex artery was a large caliber, codominant vessel that did not show any significa nt stenosis. d. The right coronary artery was a codominant vessel arising from the right sinus of Valsalva that d id not show any significant stenosis. Conclusion No significant coronary artery disease
--- NOTE | 2017-07-13 12:45 | PDOC ---
PROGRESS NOTES Chief Complaint Chief Complaint Acute hypoxic respir failure Hypertensive urgency ASSESSMENT AND PLAN: 1. L Ventricular mass/thrombus: CV surgery consulted, rec excision. would require cath prior, also PermCath for probable perm HD. cath done today. CT surg tentatively planned for Tues 2. CHF exacerbation: symptomatically improved. echo with mass in LV impeding fxn 3. Hypertensive urgency: labile BP. no renal artery stenosis on US. cont on Norvasc, clonidine. hydralazine and imdur 4. Renal failure: creat essentially stable. nephrology following. will require HD with or without cardiac surgery. appreciate Dr Brock''s input: temp cath today, then start HD to optimize prior to Surgery, incl uremic thrombasthenia 5. Anemia: combined iron deficiency and inflammatory (CHF) etiology. on IV iron 6. Hypokalemia: repleted. monitor. 7. Hypomagnesemia: replete PRN 8. prophylaxis: heparin SQ History of Present Illness History of Present Illness feels ok, denies pain. Vitals Vitals Vital Signs Date Time Temp Pulse Resp B/P (MAP) Pulse Ox O2 Delivery O2 Flow Rate FiO2 07/13/17 11:08 97.6 52 18 160/85 (110) 100 Room Air 97.6 07/12/17 19:30 2.0 Physical Exam General: Alert, Oriented X3, No acute distress Heart: Regular rate, Normal S1, Normal S2 Lungs: Clear Abdomen: Soft, No hepatosplenomegaly Extremities: No edema Skin: No significant lesion Labs LABS Laboratory Tests Test 07/13/17 05:31 07/13/17 09:40 White Blood Count 10.5 x10^3/uL (4.0-11.0) Red Blood Count 4.64 x10^6/uL (3.50-5.40) Hemoglobin 13.3 g/dL (12.0-15.5) Hematocrit 41.0 % (36.0-47.0) Mean Corpuscular Volume 88 fL (79-100) Mean Corpuscular Hemoglobin 29 pg (25-35) Mean Corpuscular Hemoglobin Concent 32 g/dL (31-37) Red Cell Distribution Width 19.1 % (11.5-14.5) Platelet Count 244 x10^3/uL (140-400) Neutrophils (%) (Auto) 80 % (31-73) Lymphocytes (%) (Auto) 10 % (24-48) Monocytes (%) (Auto) 10 % (0-9) Eosinophils (%) (Auto) 0 % (0-3) Basophils (%) (Auto) 1 % (0-3) Neutrophils # (Auto) 8.4 x10^3uL (1.8-7.7) Lymphocytes # (Auto) 1.0 x10^3/uL (1.0-4.8) Monocytes # (Auto) 1.0 x10^3/uL (0.0-1.1) Eosinophils # (Auto) 0.0 x10^3/uL (0.0-0.7) Basophils # (Auto) 0.1 x10^3/uL (0.0-0.2) Sodium Level 137 mmol/L (136-145) Potassium Level 4.8 mmol/L (3.5-5.1) Chloride Level 100 mmol/L (98-107) Carbon Dioxide Level 28 mmol/L (21-32) Anion Gap 9 (6-14) Blood Urea Nitrogen 44 mg/dL (7-20) Creatinine 3.2 mg/dL (0.6-1.0) Estimated GFR (Cockcroft-Gault) 18.3 Glucose Level 136 mg/dL (70-99) Calcium Level 9.0 mg/dL (8.5-10.1) Phosphorus Level 4.2 mg/dL (2.6-4.7) Magnesium Level 2.0 mg/dL (1.8-2.4) Albumin 2.9 g/dL (3.4-5.0) Prothrombin Time 12.8 SEC (11.7-14.0) Prothromb Time International Ratio 1.0 (0.8-1.1) JOEY OSUNA MD Jul 13, 2017 12:45
[2017-07-13] MEDS: amLODIPine BESYLATE 10 MG TABLET PO SCH (12:59)
[2017-07-13] MEDS: ISOSORBIDE MONONITRATE ER 30 MG TAB.ER.24H PO SCH (12:59)
[2017-07-13] MEDS: SPIRONOLACTONE 25 MG TABLET PO SCH (12:59)
[2017-07-13] MEDS: POTASSIUM CHLORIDE 20 MEQ TABLET.ER. PO SCH ×2 (13:01→17:00)
[2017-07-13] MEDS: IRON SUCROSE COMPLEX 200 MG in IV NORMAL SALINE 100ML 100 ML IV SCH (13:13)
--- NOTE | 2017-07-13 13:20 | PDOC ---
SUBJECTIVE ROS CKD IV/ V - ? ESRD now S/p LHC. Feeling OK. Apetite is still marginal CVS: no Orthopnea, no CP RESP: no SOB, no CASAS GI: no Nausea, no Vomiting : no Dysuria, no Urgency OBJECTIVE Vital Signs Vital Signs Date Time Temp Pulse Resp B/P (MAP) Pulse Ox O2 Delivery O2 Flow Rate FiO2 07/13/17 13:00 52 160/85 07/13/17 11:08 97.6 18 100 Room Air 97.6 07/12/17 19:30 2.0 PHYSICAL EXAM Physical Exam General Appearance: Awake Alert Oriented x 3 In no Distress Eyes: VIsion Unchanged Conjunctiva Normal EN: No EN Drainage Mucous Memb. moist Neck: no JVD min JVP Supple no Thyromegaly CVS: S1 S2 ? Murmur No Gallop No Rub +2 Edema Resp: rare basal Rales no Rhonchi no Acc. Muscle use GI: BS +ve NO Bruit Non Tender Non Distended : no CVA tenderness; no Suprapubic Tenderness SKIN: no Rashes Breast Exam deferred Mu.Sk: Adequate ROM no Muscle Atrophy Heme: Unable to palpate Obvious LAD no Splenomegaly NEURO: Good Strength and Tone Cranial Nerves II - XII grossly intact Psych: not Depressed no Active hallucination Assessment & Plan: ARF/ ? ATN: Suspect HTNsive /NS and now high suspicion of progression to ESRD status. Pt is noted to have LV Thorombus and will be going to surgery on Sunday. Given the current GFR with systemic early Uremic s/s - and hence the associated high likelihood of Uremic Thrombasthenia - we have mutually decided to proceed with HD to minimize bleeding risk [place]-operatively. ESRD Dialysis as below F 180 NR 3.0 Hrs 3 K 2.5 Ca 140 Na 35 HC03 Qb 350 + Qd 500+ Heparin none Units (on gtt) Uf 2 Kgs or to dry weight as tolerated May give 25-50 gms of 25% Albumin if needed to maintain Hemodynamic stability Treatment plan reviewed and discussed with technical assistant Fluid Overload (POA) - EF preserved ? due to HTNSive Crisis ; ct Diuresis as ordered; Uf with HD Edema - Diuresis as ordered for -ve fluid balance HTNsive emergency (POA) - better with Adding Oral Meds - see orders; KIMBERLY - ve Anemia: Fedef state as noted so IV Iron as ordered; start Epogen once BP are better if hgb < 11. Transfuse as needed. Low K - PO K replacement as ordered, follow mag Proteinruia - 2.7gms. S. Protein Gap is small so no PEPs ordered yet Anorexia - (improving some) suspect due to Uremia - reval with HD ^ed PTH - ? d ue to VIt D def Vit D def - started on PO VIt D Discussed Plan of Care and prognosis etc. at length with pt today and with Dr Zee yest COMMENT/RELEVANT DATA Meds Current Medications Medications (Trade) Dose Ordered Sig/Yeison Start Time Stop Time Status Last Admin Dose Admin Amlodipine Besylate (Norvasc) 10 mg DAILY 07/10/17 10:45 07/13/17 12:59 10 MG Aspirin (Children'S Aspirin) 81 mg DAILYWBKFT 07/10/17 10:15 07/12/17 10:32 81 MG Aspirin (Ecotrin) 81 mg DAILYWBKFT 07/11/17 08:00 UNV Atorvastatin Calcium (Lipitor) 20 mg QHS 07/10/17 21:00 07/12/17 21:28 20 MG Benzocaine (Hurricaine One) 2 spray 1X ONCE 07/11/17 12:05 07/11/17 12:07 DC Carvedilol (Coreg) 6.25 mg BIDWMEALS 07/10/17 17:00 07/11/17 09:35 DC 07/11/17 08:39 6.25 MG Clonidine HCl (Catapres Tts-2) 1 patch WEEKLY 07/11/17 10:30 07/11/17 10:32 1 PATCH Clonidine HCl (Catapres) 0.2 mg 1X ONCE 07/11/17 10:30 07/11/17 10:31 DC 07/11/17 10:32 0.2 MG Fentanyl Citrate (Fentanyl 2ml Vial) 100 mcg 1X ONCE 07/13/17 09:30 07/13/17 09:33 DC 07/13/17 09:55 75 MCG Furosemide (Lasix) 80 mg [id number] 07/11/17 14:00 07/12/17 14:28 80 MG Heparin Sodium (Porcine) (Heparin Sodium) 2,500 unit 1X ONCE 07/13/17 09:30 07/13/17 09:33 DC 07/13/17 09:56 2,500 UNIT Heparin Sodium (Porcine) (Heparin Sq) 5,000 unit Q8HRS 07/10/17 14:00 07/13/17 06:08 5,000 UNIT Heparin Sodium/ Sodium Chloride 1,000 unit 1X ONCE 07/13/17 09:30 07/13/17 09:33 DC 07/13/17 09:53 1,000 UNIT Hydralazine HCl (Apresoline) 50 mg TID 07/12/17 09:00 07/13/17 13:00 50 MG Hydromorphone HCl (Dilaudid) 0.5 mg PRN Q10MIN PRN 07/11/17 07:00 07/12/17 06:59 DC Info (Do NOT chart on this entry -- for MONITORING) 1 each PRN DAILY PRN 07/13/17 09:45 07/15/17 09:44 Iodixanol (Visipaque 320) 100 ml 1X ONCE 07/13/17 09:30 07/13/17 09:33 DC 07/13/17 09:53 45 ML Iohexol (Omnipaque 350 Mg/ml) 100 ml STK-MED ONCE 07/13/17 08:54 07/13/17 08:55 DC Iron Sucrose 200 mg/Sodium Chloride 110 ml @ 55 mls/hr 3X/WEEK 07/11/17 10:30 07/20/17 10:59 07/11/17 10:26 55 MLS/HR Isosorbide Mononitrate (Imdur) 30 mg 1X ONCE 07/12/17 10:30 07/12/17 10:31 DC 07/12/17 10:35 30 MG Labetalol HCl (Trandate) 200 mg BID 07/11/17 21:00 07/12/17 07:56 DC 07/11/17 21:12 200 MG Levofloxacin/ Dextrose 50 ml @ 50 mls/hr Q24H 07/10/17 19:00 07/12/17 21:27 50 MLS/HR Lidocaine HCl 20 ml 1X ONCE 07/13/17 09:30 07/13/17 09:33 DC 07/13/17 09:53 1 ML Lidocaine HCl (Lidocaine Pf 2% Vial) 5 ml STK-MED ONCE 07/11/17 11:14 07/11/17 11:15 DC Lidocaine HCl (Xylocaine 2% Topical 30gm Tube) 1 fredi 1X ONCE 07/11/17 12:05 07/11/17 12:07 DC Magnesium Sulfate/ Dextrose 50 ml @ 25 mls/hr PRN DAILY PRN 07/10/17 10:15 Metoprolol Tartrate (Lopressor) 12.5 mg BID 07/10/17 10:15 07/10/17 11:13 DC Midazolam HCl (Versed) 5 mg 1X ONCE 07/13/17 09:30 07/13/17 09:33 DC 07/13/17 09:54 3 MG Morphine Sulfate 1 mg PRN Q10MIN PRN 07/11/17 07:00 07/12/17 06:59 DC Nicardipine HCl 50 mg/Sodium Chloride 270 ml @ 0 mls/hr CONT PRN 07/09/17 16:00 07/10/17 10:36 DC 07/09/17 17:26 25 MLS/HR Nitroglycerin (Nitroglycerin) 200 mcg 1X ONCE 07/13/17 09:30 07/13/17 09:33 DC 07/13/17 09:56 200 MCG Potassium Chloride (Klor-Con) 40 meq BIDWMEALS 07/10/17 11:30 07/13/17 13:01 40 MEQ Prochlorperazine Edisylate (Compazine) 5 mg PACU PRN PRN 07/11/17 07:00 07/12/17 06:59 DC Propofol 40 ml @ As Directed STK-MED ONCE 07/11/17 11:14 07/11/17 11:15 DC Regadenoson (Lexiscan) 0.4 mg 1X ONCE 07/12/17 09:00 07/12/17 09:01 DC 07/12/17 09:37 0.4 MG Ringer's Solution 1,000 ml @ 30 mls/hr Q24H 07/11/17 07:00 07/11/17 18:59 DC Sodium Cl/Sod Bicarb/Potass Cl/ PEG (Golytely) 4,000 ml 1X ONCE 07/10/17 18:45 07/10/17 18:46 UNV Spironolactone (Aldactone) 50 mg DAILY 07/11/17 10:30 07/13/17 12:59 50 MG Sulfur Hexafluoride Microspheres (Lumason) 25 mg 1X ONCE 07/11/17 14:00 07/11/17 14:01 DC 07/11/17 14:00 25 MG Verapamil HCl (Verapamil) 2.5 mg 1X ONCE 07/13/17 09:30 07/13/17 09:33 DC 07/13/17 09:56 2.5 MG Vitamin D (Vitamin D3) 5,000 unit DAILY 07/11/17 10:30 07/12/17 10:31 5,000 UNIT Lab Laboratory Tests Test 07/13/17 05:31 07/13/17 09:40 White Blood Count 10.5 x10^3/uL (4.0-11.0) Red Blood Count 4.64 x10^6/uL (3.50-5.40) Hemoglobin 13.3 g/dL (12.0-15.5) Hematocrit 41.0 % (36.0-47.0) Mean Corpuscular Volume 88 fL (79-100) Mean Corpuscular Hemoglobin 29 pg (25-35) Mean Corpuscular Hemoglobin Concent 32 g/dL (31-37) Red Cell Distribution Width 19.1 % (11.5-14.5) Platelet Count 244 x10^3/uL (140-400) Neutrophils (%) (Auto) 80 % (31-73) Lymphocytes (%) (Auto) 10 % (24-48) Monocytes (%) (Auto) 10 % (0-9) Eosinophils (%) (Auto) 0 % (0-3) Basophils (%) (Auto) 1 % (0-3) Neutrophils # (Auto) 8.4 x10^3uL (1.8-7.7) Lymphocytes # (Auto) 1.0 x10^3/uL (1.0-4.8) Monocytes # (Auto) 1.0 x10^3/uL (0.0-1.1) Eosinophils # (Auto) 0.0 x10^3/uL (0.0-0.7) Basophils # (Auto) 0.1 x10^3/uL (0.0-0.2) Sodium Level 137 mmol/L (136-145) Potassium Level 4.8 mmol/L (3.5-5.1) Chloride Level 100 mmol/L (98-107) Carbon Dioxide Level 28 mmol/L (21-32) Anion Gap 9 (6-14) Blood Urea Nitrogen 44 mg/dL (7-20) Creatinine 3.2 mg/dL (0.6-1.0) Estimated GFR (Cockcroft-Gault) 18.3 Glucose Level 136 mg/dL (70-99) Calcium Level 9.0 mg/dL (8.5-10.1) Phosphorus Level 4.2 mg/dL (2.6-4.7) Magnesium Level 2.0 mg/dL (1.8-2.4) Albumin 2.9 g/dL (3.4-5.0) Prothrombin Time 12.8 SEC (11.7-14.0) Prothromb Time International Ratio 1.0 (0.8-1.1) LEONARDO TANNER MD Jul 13, 2017 13:20
[2017-07-13] MEDS ORDERED: LIDOCAINE 1%/EPI 1:100,000 20 ML VIAL. ONE (14:25)
[2017-07-13] MEDS ORDERED: MIDAZOLAM HCL/PF 2 MG/2 ML VIAL. ONE (14:38)
--- NOTE | 2017-07-13 15:10 | PDOC ---
MODERATE SEDATION ASSESSMENT RISKS/ALTERNATIVES Risks/Alternatives Risks and alternatives of this type of sedation and procedure discussed with: RISK/ALTERNATIVES: Patient H & P ON CHART H & P H & P on chart and reviewed for co-morbid conditions and appropriate labs. H&P ON CHART: Yes STATUS PREG STATUS ASSESSED: Yes MEDS/ALLERGIES REVIEWED Meds/Allergies Reviewed Medications and Allergies including time and route of recently administered narcotics and sedatives. MEDS/ALLERGIES REVIEWED: Yes ASA RATING ASA RATING: II AIRWAY ASSESSMENT Airway Assessment Airway patency, oral function limitations, presence of caps, crowns, dentures, partials, and ability to extend neck assessed. AIRWAY ASSESSMENT: Yes MALLAMPATI SCORE MALLAMPATI SCORE: II PRE-SEDATION ASSESSMENT PRE-SEDATION ASSESSMENT: Yes DEANNE STEWART MD Jul 13, 2017 15:10
--- NOTE | 2017-07-13 15:11 | PDOC ---
BRIEF OPERATIVE NOTE Pre-Op Diagnosis ARF Post-Op Diagnosis same Procedure Performed Tunnelled HD Catheter Surgeon Jorge Anesthesia Type: Conscious Sedation Findings 23 cm Palindrome with excellent manual flows Complications No immediate DEANNE STEWART MD Jul 13, 2017 15:11
[2017-07-13] MEDS ORDERED: MIDAZOLAM HCL/PF 2 MG/2 ML VIAL. IV ONE (15:15)
[2017-07-13] MEDS ORDERED: LIDOCAINE 1%/EPI 1:100,000 20 ML VIAL. IJ ONE (15:15)
--- NOTE | 2017-07-13 15:16 | PDOC ---
MODERATE SEDATION ASSESSMENT RISKS/ALTERNATIVES Risks/Alternatives Risks and alternatives of this type of sedation and procedure discussed with: RISK/ALTERNATIVES: Patient H & P ON CHART H & P H & P on chart and reviewed for co-morbid conditions and appropriate labs. H&P ON CHART: Yes STATUS PREG STATUS ASSESSED: N/A MEDS/ALLERGIES REVIEWED Meds/Allergies Reviewed Medications and Allergies including time and route of recently administered narcotics and sedatives. MEDS/ALLERGIES REVIEWED: Yes ASA RATING ASA RATING: II AIRWAY ASSESSMENT Airway Assessment Airway patency, oral function limitations, presence of caps, crowns, dentures, partials, and ability to extend neck assessed. AIRWAY ASSESSMENT: Yes MALLAMPATI SCORE MALLAMPATI SCORE: II PRE-SEDATION ASSESSMENT PRE-SEDATION ASSESSMENT: Yes GWYN LENNON MD Jul 13, 2017 15:16
--- NOTE | 2017-07-13 15:26 | RAD ---
Procedure: Tunneled hemodialysis catheter placement Clinical Indication: 52-year-old requiring hemodialysis Sedation: Conscious sedation was administered for 14 minutes. The patient was monitored by a qualified independent observer throughout the time of sedation. Please refer to the medical record for exact doses of medications utilized to achieve moderate sedation. Antibiotics: Antibiotic was administered intravenously within 1 hour of the procedure start time. Fluoro Time: 0.1 minutes. Images: 1. Contrast: None Sterility: All elements of maximal sterile barrier technique including the use of a cap, mask, sterile gown, sterile gloves, large sterile sheet, appropriate hand hygiene, and 2% chlorhexidine for cutaneous antisepsis (or acceptable alternative antiseptic per current guidelines) were followed for this procedure. Consent: The procedure was explained in its entirety to the patient or the patients designated uniforms sales representative by a member of the treatment team, including a discussion of the risks, benefits and commonly accepted alternatives to the procedure, as well as the expected consequences of no therapy whatsoever. Discussion of the risks included, but was not limited to, those that are most frequent and those that are rare but possibly severe or life-threatening, as well as the possibility of unforeseen complications. Technique and Findings: Following informed consent, the patient was prepped and draped in the usual sterile fashion. Ultrasound interrogation of the right neck revealed patency and compressibility of the right internal jugular vein. A 21-gauge micropuncture was then used to gain access to this vein under ultrasound guidance. A hard copy ultrasound image was recorded. The needle was exchanged over a wire for a 4 Welsh sheath which was used to guide an Amplatz wire into the IVC. The skin over the right anterior chest wall was copiously anesthetized with 1% Lidocaine plus Epinephrine and a small dermatotomy was made. A 23 cm palindrome tunneled hemodialysis catheter was then tunneled subcutaneously towards the neck dermatotomy and deployed through a large caliber peel-away sheath under fluoroscopic guidance such that the distal tip resided in the mid right atrium. Manual flow rates were assessed and found to be excellent. The catheter was then flushed, packed with Heparin, capped, and sutured to the skin. The neck dermatotomy was closed with Dermabond. Complications: No immediate Impression: 1. Tunneled hemodialysis catheter placement as described. This catheter demonstrates excellent manual flow rates and is suitable for use immediately.
[2017-07-13] MEDS ORDERED: IV NORMAL SALINE 1000ML BAG 1,000 ML IV PRN (15:39)
[2017-07-13] MEDS ORDERED: 0.9 % SODIUM CHLORIDE 10 ML DISP.SYRIN. IV PRN ×2 (15:45)
[2017-07-13] MEDS ORDERED: DIALYSIS PATIENT. MC PRN (15:45)
[2017-07-13] MEDS ORDERED: diphenhydrAMINE 50 MG/ML VIAL IV PRN ×2 (15:45)
[2017-07-13] MEDS: ATORVASTATIN CALCIUM 20 MG TABLET PO SCH (21:22)
[2017-07-14 02:52] VITALS: BP 126/61
[2017-07-14 05:27] LABS: BASO # 0.1 x10^3/uL (0.0-0.2); BASO % 1 % (0-3); EOS % 0 % (0-3); HEMATOCRIT 42.7 % (36.0-47.0); LYMPH # 0.8 x10^3/uL (1.0-4.8); LYMPH % 7 % (24-48); MEAN CORPUSCULAR HEMOGLOBIN 29 pg (25-35); MEAN CORPUSCULAR HGB CONC 33 g/dL (31-37); MEAN CORPUSCULAR VOLUME 88 fL (79-100); MONO % 9 % (0-9); NEUT % 83 % (31-73); PLATELET COUNT 230 x10^3/uL (140-400); RED BLOOD COUNT 4.84 x10^6/uL (3.50-5.40); RED CELL DISTRIBUTION WIDTH 19.2 % (11.5-14.5); WHITE BLOOD COUNT 10.3 x10^3/uL (4.0-11.0)
[2017-07-14] MEDS: HEPARIN PF for SUB-Q USE 5,000 UNIT/0.5 ML VIAL. SQ SCH ×3 (06:05→21:52)
[2017-07-14 06:12] LABS: ALBUMIN 3.4 g/dL (3.4-5.0); CALCIUM 9.9 mg/dL (8.5-10.1); CREATININE 2.6 mg/dL (0.6-1.0); GFR 23.3; PHOSPHORUS 4.6 mg/dL (2.6-4.7)
[2017-07-14 06:14] LABS: POTASSIUM 5.5 mmol/L (3.5-5.1)
[2017-07-14 07:00] VITALS: BP 137/67
[2017-07-14] MEDS: POTASSIUM CHLORIDE 20 MEQ TABLET.ER. PO SCH ×2 (07:23→16:40)
[2017-07-14] MEDS: CHOLECALCIFEROL (VITAMIN D3) 5,000 UNIT CAPSULE PO SCH (09:09)
[2017-07-14] MEDS: SPIRONOLACTONE 25 MG TABLET PO SCH (09:09)
[2017-07-14] MEDS: amLODIPine BESYLATE 10 MG TABLET PO SCH (09:11)
[2017-07-14] MEDS: ISOSORBIDE MONONITRATE ER 30 MG TAB.ER.24H PO SCH (09:12)
[2017-07-14] MEDS: FUROSEMIDE 40 MG/4 ML VIAL. IVP SCH ×2 (09:12→13:39)
--- NOTE | 2017-07-14 10:48 | PDOC ---
PROGRESS NOTES Subjective Subjective Patient feeling better. No new complaints. Objective Objective Vital Signs Date Time Temp Pulse Resp B/P (MAP) Pulse Ox O2 Delivery O2 Flow Rate FiO2 07/14/17 09:12 62 137/67 07/14/17 08:00 Room Air 07/14/17 07:00 98.3 16 100 98.3 07/13/17 15:14 2.0 Physical Exam Abdomen: Soft, No hepatosplenomegaly Heart: Regular rate, Normal S1, Normal S2 Extremities: No edema General: Alert, Oriented X3, No acute distress HEENT: Atraumatic, PERRLA Lungs: Clear to auscultation MUSCULOSKELETAL: No deformity Neuro: Normal gait, Normal speech, Strength at 5/5 X4 ext, Normal tone, Sensation intact, Cranial nerves 3-12 NL Psych/Mental Status: Mental status NL Skin: No significant lesion Assessment Assessment 1. Malignant HTN: Blood pressure much better controlled. Continue current medical regimen. 2. WAYNE on CKD: per nephrology 3. Acute CHF with systolic/diastolic dysfunction: appears well compensated. Cardiac catheterization did not show any significant coronary artery disease. 4. Left ventricular mass, thrombus versus benign tumor. Plan surgical excision by CT surgery team on Sunday. Comment Review of Relevant I have reviewed the following items ryan (where applicable) has been applied. Labs Laboratory Tests Test 07/14/17 04:30 White Blood Count 10.3 x10^3/uL (4.0-11.0) Red Blood Count 4.84 x10^6/uL (3.50-5.40) Hemoglobin 14.0 g/dL (12.0-15.5) Hematocrit 42.7 % (36.0-47.0) Mean Corpuscular Volume 88 fL (79-100) Mean Corpuscular Hemoglobin 29 pg (25-35) Mean Corpuscular Hemoglobin Concent 33 g/dL (31-37) Red Cell Distribution Width 19.2 % (11.5-14.5) Platelet Count 230 x10^3/uL (140-400) Neutrophils (%) (Auto) 83 % (31-73) Lymphocytes (%) (Auto) 7 % (24-48) Monocytes (%) (Auto) 9 % (0-9) Eosinophils (%) (Auto) 0 % (0-3) Basophils (%) (Auto) 1 % (0-3) Neutrophils # (Auto) 8.5 x10^3uL (1.8-7.7) Lymphocytes # (Auto) 0.8 x10^3/uL (1.0-4.8) Monocytes # (Auto) 0.9 x10^3/uL (0.0-1.1) Eosinophils # (Auto) 0.0 x10^3/uL (0.0-0.7) Basophils # (Auto) 0.1 x10^3/uL (0.0-0.2) Sodium Level 139 mmol/L (136-145) Potassium Level 5.5 mmol/L (3.5-5.1) Chloride Level 99 mmol/L (98-107) Carbon Dioxide Level 25 mmol/L (21-32) Anion Gap 15 (6-14) Blood Urea Nitrogen 24 mg/dL (7-20) Creatinine 2.6 mg/dL (0.6-1.0) Estimated GFR (Cockcroft-Gault) 23.3 Glucose Level 106 mg/dL (70-99) Calcium Level 9.9 mg/dL (8.5-10.1) Phosphorus Level 4.6 mg/dL (2.6-4.7) Magnesium Level 2.1 mg/dL (1.8-2.4) Albumin 3.4 g/dL (3.4-5.0) Microbiology 07/10/17 Urine Culture - Final, Complete 07/10/17 Urine Culture Result 1 (DEEPTHI) - Final, Complete Medications Current Medications Cefazolin Sodium 50 ml @ 100 mls/hr 1X ONCE IV Last administered on 07/13/17t 15:13; Start 07/13/17 at 15:15; Stop 07/13/17 at 15:44; Status DC Cefazolin Sodium 50 ml @ 100 mls/hr 1X ONCE IV ; Start 07/17/17 at 06:00; Stop 07/17/17 at 06:29 Cefazolin Sodium 50 ml @ As Directed STK-MED ONCE IV ; Start 07/13/17 at 14:39; Stop 07/13/17 at 14:40; Status DC Diphenhydramine HCl (Benadryl) 25 mg 1X PRN PRN IV ITCHING; Start 07/13/17 at 15 :45; Stop 07/14/17 at 15:44 Diphenhydramine HCl (Benadryl) 25 mg 1X PRN PRN IV ITCHING; Start 07/13/17 at 15 :45; Stop 07/14/17 at 15:44 Fentanyl Citrate (Fentanyl 2ml Vial) 50 mcg 1X ONCE IV Last administered on 15:14; Start 07/13/17 at 15:15; Stop 07/13/17 at 15:16; Status DC Fentanyl Citrate (Fentanyl 2ml Vial) 100 mcg STK-MED ONCE .ROUTE ; Start at 14:39; Stop 07/13/17 at 14:40; Status DC Heparin Sodium (Porcine) (Heparin Sodium) 3,800 unit 1X ONCE INT CAT Last administered on 07/13/17 15:14; Start 07/13/17 at 15:15; Stop 07/13/17 at 15:16; Status DC Heparin Sodium (Porcine) (Heparin Sodium) 10,000 unit STK-MED ONCE .ROUTE ; Start 07/13/17 at 14:25; Stop 07/13/17 at 14:26; Status DC Heparin Sodium/ Sodium Chloride 500 ml @ As Directed STK-MED ONCE .ROUTE ; Start 07/13/17 at 14:25; Stop 07/13/17 at 14:26; Status DC Heparin Sodium/ Sodium Chloride 1,000 unit 1X ONCE IART Last administered on 15:13; Start 07/13/17 at 15:15; Stop 07/13/17 at 15:16; Status DC Info (PHARMACY MONITORING -- do not chart) 1 each PRN DAILY PRN MC SEE COMMENTS ; Start 07/13/17 at 15:45 Levofloxacin (Levaquin) 250 mg HS PO Last administered on 07/13/17 21:22; Start 07/13/17 at 21:00 Lidocaine/ Epinephrine (Xylocaine 1%-Epi 1:100,000) 10 ml 1X ONCE IJ Last administered on 07/13/17 15:13; Start 07/13/17 at 15:15; Stop 07/13/17 at 15:16; Status DC Lidocaine/ Epinephrine (Xylocaine 1%-Epi 1:100,000) 20 ml STK-MED ONCE .ROUTE ; Start 07/13/17 at 14:25; Stop 07/13/17 at 14:26; Status DC Midazolam HCl (Versed) 1 mg 1X ONCE IV Last administered on 07/13/17t 15:14; Start 07/13/17 at 15:15; Stop 07/13/17 at 15:16; Status DC Midazolam HCl (Versed) 2 mg STK-MED ONCE .ROUTE ; Start 07/13/17 at 14:38; Stop 07/13/17 at 14:39; Status DC Sodium Chloride 1,000 ml @ 1,000 mls/hr Q1H PRN IV hypotension; Start 07/13/17 at 15:39; Stop 07/13/17 at 21:38; Status DC Sodium Chloride (Normal Saline Flush) 10 ml 1X PRN PRN IV AP catheter pack; Start 07/13/17 at 15:45; Stop 07/14/17 at 15:44 Sodium Chloride (Normal Saline Flush) 10 ml 1X PRN PRN IV [employer] catheter pack; Start 07/13/17 at 15:45; Stop 07/14/17 at 15:44 Vitals/I & O Vital Sign - Last 24 Hours 07/13/17 07/13/17 07/13/17 07/13/17 11:00 11:08 11:30 12:00 Temp 97.6 97.6 Pulse 58 52 54 56 Resp 16 18 16 17 B/P (MAP) 160/85 (110) Pulse Ox 97 100 96 95 O2 Delivery Room Air Room Air Room Air Room Air 07/13/17 07/13/17 07/13/17 07/13/17 12:59 12:59 13:00 13:00 Pulse 52 52 52 52 Resp 17 B/P (MAP) 160/85 160/85 160/85 Pulse Ox 95 O2 Delivery Room Air 07/13/17 07/13/17 07/13/17 07/13/17 15:14 19:00 19:00 20:00 Temp 97.8 97.8 Pulse 70 52 Resp 17 16 17 B/P (MAP) 146/77 (100) Pulse Ox 100 100 95 O2 Delivery Nasal Cannula Room Air Room Air Room Air O2 Flow Rate 2.0 07/13/17 07/13/17 07/14/17 07/14/17 21:21 23:00 02:52 07:00 Temp 97.6 97.4 98.3 97.6 97.4 98.3 Pulse 70 67 66 62 Resp 18 16 16 B/P (MAP) 146/77 130/64 (86) 126/61 (82) 137/67 (90) Pulse Ox 99 96 100 O2 Delivery Room Air Room Air Room Air 07/14/17 07/14/17 07/14/17 07/14/17 08:00 09:10 09:11 09:12 Pulse 62 62 62 B/P (MAP) 137/67 137/67 137/67 O2 Delivery Room Air GWYN LENNON MD Jul 14, 2017 10:48
[2017-07-14 11:00] VITALS: BP 122/61
[2017-07-14] MEDS ORDERED: IV NORMAL SALINE 1000ML BAG 1,000 ML IV PRN ×2 (14:07)
[2017-07-14] MEDS ORDERED: DIALYSIS PATIENT. MC PRN ×2 (14:15)
--- NOTE | 2017-07-14 14:18 | PDOC ---
PROGRESS NOTES Chief Complaint Chief Complaint Acute hypoxic respiratory failure Hypertensive urgency PMH: CHF htn hld History of Present Illness History of Present Illness Pt is quiet, but seems comfortable, in bed with HOB raised. Daughter is at bedside, providing most of the details. States pt is usually quiet. Pt had HD yesterday, RN reports 1.5 kilo taken off On levaquin for ?UTI, stopping Vitals Vitals Vital Signs Date Time Temp Pulse Resp B/P (MAP) Pulse Ox O2 Delivery O2 Flow Rate FiO2 07/14/17 11:00 97.6 68 16 122/61 (81) 100 Room Air 97.6 07/13/17 15:14 2.0 Physical Exam General: Alert, Oriented X3, No acute distress Heart: Regular rate, Normal S1, Normal S2 Lungs: Clear Abdomen: Soft, No hepatosplenomegaly Extremities: No edema Skin: No significant lesion Labs LABS Laboratory Tests Test 07/14/17 04:30 White Blood Count 10.3 x10^3/uL (4.0-11.0) Red Blood Count 4.84 x10^6/uL (3.50-5.40) Hemoglobin 14.0 g/dL (12.0-15.5) Hematocrit 42.7 % (36.0-47.0) Mean Corpuscular Volume 88 fL (79-100) Mean Corpuscular Hemoglobin 29 pg (25-35) Mean Corpuscular Hemoglobin Concent 33 g/dL (31-37) Red Cell Distribution Width 19.2 % (11.5-14.5) Platelet Count 230 x10^3/uL (140-400) Neutrophils (%) (Auto) 83 % (31-73) Lymphocytes (%) (Auto) 7 % (24-48) Monocytes (%) (Auto) 9 % (0-9) Eosinophils (%) (Auto) 0 % (0-3) Basophils (%) (Auto) 1 % (0-3) Neutrophils # (Auto) 8.5 x10^3uL (1.8-7.7) Lymphocytes # (Auto) 0.8 x10^3/uL (1.0-4.8) Monocytes # (Auto) 0.9 x10^3/uL (0.0-1.1) Eosinophils # (Auto) 0.0 x10^3/uL (0.0-0.7) Basophils # (Auto) 0.1 x10^3/uL (0.0-0.2) Sodium Level 139 mmol/L (136-145) Potassium Level 5.5 mmol/L (3.5-5.1) Chloride Level 99 mmol/L (98-107) Carbon Dioxide Level 25 mmol/L (21-32) Anion Gap 15 (6-14) Blood Urea Nitrogen 24 mg/dL (7-20) Creatinine 2.6 mg/dL (0.6-1.0) Estimated GFR (Cockcroft-Gault) 23.3 Glucose Level 106 mg/dL (70-99) Calcium Level 9.9 mg/dL (8.5-10.1) Phosphorus Level 4.6 mg/dL (2.6-4.7) Magnesium Level 2.1 mg/dL (1.8-2.4) Albumin 3.4 g/dL (3.4-5.0) Review of Systems Review of Systems no pain c/o hunger Assessment and Plan Assessmemt and Plan 1. L Ventricular mass/thrombus: CV surgery consulted, rec excision. CT surg tentatively planned for Tues 2. CHF exacerbation: symptomatically improved. echo with mass in LV impeding fxn 3. Hypertensive urgency: labile BP. no renal artery stenosis on US. cont on Norvasc, clonidine. hydralazine and imdur 4. Renal failure with systemic early uremic s/s: nephrology following, HD started 07/13 5. Anemia: combined iron deficiency and inflammatory (CHF) etiology. Hbg 14.0 today 6. prophylaxis: heparin SQ Problems: Comment Review of Relevant I have reviewed the following items ryan (where applicable) has been applied. Labs Laboratory Tests Test 07/13/17 05:31 07/13/17 09:40 07/14/17 04:30 White Blood Count 10.5 x10^3/uL (4.0-11.0) 10.3 x10^3/uL (4.0-11.0) Red Blood Count 4.64 x10^6/uL (3.50-5.40) 4.84 x10^6/uL (3.50-5.40) Hemoglobin 13.3 g/dL (12.0-15.5) 14.0 g/dL (12.0-15.5) Hematocrit 41.0 % (36.0-47.0) 42.7 % (36.0-47.0) Mean Corpuscular Volume 88 fL (79-100) 88 fL (79-100) Mean Corpuscular Hemoglobin 29 pg (25-35) 29 pg (25-35) Mean Corpuscular Hemoglobin Concent 32 g/dL (31-37) 33 g/dL (31-37) Red Cell Distribution Width 19.1 % (11.5-14.5) 19.2 % (11.5-14.5) Platelet Count 244 x10^3/uL (140-400) 230 x10^3/uL (140-400) Neutrophils (%) (Auto) 80 % (31-73) 83 % (31-73) Lymphocytes (%) (Auto) 10 % (24-48) 7 % (24-48) Monocytes (%) (Auto) 10 % (0-9) 9 % (0-9) Eosinophils (%) (Auto) 0 % (0-3) 0 % (0-3) Basophils (%) (Auto) 1 % (0-3) 1 % (0-3) Neutrophils # (Auto) 8.4 x10^3uL (1.8-7.7) 8.5 x10^3uL (1.8-7.7) Lymphocytes # (Auto) 1.0 x10^3/uL (1.0-4.8) 0.8 x10^3/uL (1.0-4.8) Monocytes # (Auto) 1.0 x10^3/uL (0.0-1.1) 0.9 x10^3/uL (0.0-1.1) Eosinophils # (Auto) 0.0 x10^3/uL (0.0-0.7) 0.0 x10^3/uL (0.0-0.7) Basophils # (Auto) 0.1 x10^3/uL (0.0-0.2) 0.1 x10^3/uL (0.0-0.2) Sodium Level 137 mmol/L (136-145) 139 mmol/L (136-145) Potassium Level 4.8 mmol/L (3.5-5.1) 5.5 mmol/L (3.5-5.1) Chloride Level 100 mmol/L (98-107) 99 mmol/L (98-107) Carbon Dioxide Level 28 mmol/L (21-32) 25 mmol/L (21-32) Anion Gap 9 (6-14) 15 (6-14) Blood Urea Nitrogen 44 mg/dL (7-20) 24 mg/dL (7-20) Creatinine 3.2 mg/dL (0.6-1.0) 2.6 mg/dL (0.6-1.0) Estimated GFR (Cockcroft-Gault) 18.3 23.3 Glucose Level 136 mg/dL (70-99) 106 mg/dL (70-99) Calcium Level 9.0 mg/dL (8.5-10.1) 9.9 mg/dL (8.5-10.1) Phosphorus Level 4.2 mg/dL (2.6-4.7) 4.6 mg/dL (2.6-4.7) Magnesium Level 2.0 mg/dL (1.8-2.4) 2.1 mg/dL (1.8-2.4) Albumin 2.9 g/dL (3.4-5.0) 3.4 g/dL (3.4-5.0) Prothrombin Time 12.8 SEC (11.7-14.0) Prothromb Time International Ratio 1.0 (0.8-1.1) Laboratory Tests Test 07/14/17 04:30 White Blood Count 10.3 x10^3/uL (4.0-11.0) Red Blood Count 4.84 x10^6/uL (3.50-5.40) Hemoglobin 14.0 g/dL (12.0-15.5) Hematocrit 42.7 % (36.0-47.0) Mean Corpuscular Volume 88 fL (79-100) Mean Corpuscular Hemoglobin 29 pg (25-35) Mean Corpuscular Hemoglobin Concent 33 g/dL (31-37) Red Cell Distribution Width 19.2 % (11.5-14.5) Platelet Count 230 x10^3/uL (140-400) Neutrophils (%) (Auto) 83 % (31-73) Lymphocytes (%) (Auto) 7 % (24-48) Monocytes (%) (Auto) 9 % (0-9) Eosinophils (%) (Auto) 0 % (0-3) Basophils (%) (Auto) 1 % (0-3) Neutrophils # (Auto) 8.5 x10^3uL (1.8-7.7) Lymphocytes # (Auto) 0.8 x10^3/uL (1.0-4.8) Monocytes # (Auto) 0.9 x10^3/uL (0.0-1.1) Eosinophils # (Auto) 0.0 x10^3/uL (0.0-0.7) Basophils # (Auto) 0.1 x10^3/uL (0.0-0.2) Sodium Level 139 mmol/L (136-145) Potassium Level 5.5 mmol/L (3.5-5.1) Chloride Level 99 mmol/L (98-107) Carbon Dioxide Level 25 mmol/L (21-32) Anion Gap 15 (6-14) Blood Urea Nitrogen 24 mg/dL (7-20) Creatinine 2.6 mg/dL (0.6-1.0) Estimated GFR (Cockcroft-Gault) 23.3 Glucose Level 106 mg/dL (70-99) Calcium Level 9.9 mg/dL (8.5-10.1) Phosphorus Level 4.6 mg/dL (2.6-4.7) Magnesium Level 2.1 mg/dL (1.8-2.4) Albumin 3.4 g/dL (3.4-5.0) Microbiology 07/10/17 Urine Culture - Final, Complete 07/10/17 Urine Culture Result 1 (DEEPTHI) - Final, Complete Medications Current Medications Nicardipine HCl 50 mg/Sodium Chloride 270 ml @ 0 mls/hr CONT PRN IV SEE I/O RECORD Last administered on 07/09/17 17:26; Start 07/09/17 at 16:00; Stop 07/10 at 10:36; Status DC Levofloxacin/ Dextrose 100 ml @ 100 mls/hr Q24H IV Last administered on 19:44; Start 07/09/17 at 19:00; Stop 07/10/17 at 17:06; Status DC Magnesium Sulfate/ Dextrose 50 ml @ 25 mls/hr PRN DAILY PRN IV for Mag < 1.7 on am labs; Start 07/10/17 at 10:15 Metoprolol Tartrate (Lopressor) 12.5 mg BID PO ; Start 07/10/17 at 10:15; Stop 07/10/17 at 11:13; Status DC Aspirin (Children'S Aspirin) 81 mg DAILYWBKFT PO Last administered on 10:32; Start 07/10/17 at 10:15; Stop 07/13/17 at 14:04; Status DC Amlodipine Besylate (Norvasc) 10 mg DAILY PO Last administered on 07/14/17 09: 11; Start 07/10/17 at 10:45; Stop 07/16/17 at 22:00 Furosemide (Lasix) 40 mg BID92 IVP Last administered on 07/11/17 08:40; Start 07/10/17 at 11:00; Stop 07/11/17 at 10:00; Status DC Potassium Chloride (Klor-Con) 40 meq BIDWMEALS PO Last administered on 13:01; Start 07/10/17 at 11:30; Stop 07/16/17 at 23:00 Heparin Sodium (Porcine) (Heparin Sq) 5,000 unit Q8HRS SQ Last administered on 07/14/17 13:45; Start 07/10/17 at 14:00; Stop 07/16/17 at 23:00 Carvedilol (Coreg) 6.25 mg BIDWMEALS PO Last administered on 07/11/17 08:39; Start 07/10/17 at 17:00; Stop 07/11/17 at 09:35; Status DC Hydralazine HCl (Apresoline) 10 mg PRN Q4HRS PRN IVP ELEVATED BP, SEE COMMENTS Last administered on 07/11/17 17:07; Start 07/10/17 at 10:45 Aspirin (Ecotrin) 81 mg DAILYWBKFT PO ; Start 07/11/17 at 08:00; Status UNV Atorvastatin Calcium (Lipitor) 20 mg QHS PO Last administered on 07/13/17 21:22 ; Start 07/10/17 at 21:00 Isosorbide Mononitrate (Imdur) 30 mg DAILY PO Last administered on 07/11/17 08 :38; Start 07/10/17 at 15:30; Stop 07/12/17 at 10:16; Status DC Levofloxacin/ Dextrose 50 ml @ 50 mls/hr Q24H IV Last administered on 21:27; Start 07/10/17 at 19:00; Stop 07/13/17 at 16:00; Status DC Fentanyl Citrate (Fentanyl 2ml Vial) 25 mcg PRN Q5MIN PRN IV MILD PAIN; Start 07/11/17 at 07:00; Stop 07/12/17 at 06:59; Status DC Fentanyl Citrate (Fentanyl 2ml Vial) 50 mcg PRN Q5MIN PRN IV MODERATE PAIN; Start 07/11/17 at 07:00; Stop 07/12/17 at 06:59; Status DC Morphine Sulfate 1 mg PRN Q10MIN PRN IV SEVERE PAIN; Start 07/11/17 at 07:00; Stop 07/12/17 at 06:59; Status DC Ringer's Solution 1,000 ml @ 30 mls/hr Q24H IV ; Start 07/11/17 at 07:00; Stop 07/11/17 at 18:59; Status DC Lidocaine HCl 2 ml PRN 1X PRN ID PRIOR TO IV START; Start 07/11/17 at 07:00; Stop 07/12/17 at 06:59; Status DC Hydromorphone HCl (Dilaudid) 0.5 mg PRN Q10MIN PRN IV SEV PAIN, Second choice; Start 07/11/17 at 07:00; Stop 07/12/17 at 06:59; Status DC Prochlorperazine Edisylate (Compazine) 5 mg PACU PRN PRN IV NAUSEA, MRX1; Start 07/11/17 at 07:00; Stop 07/12/17 at 06:59; Status DC Sodium Cl/Sod Bicarb/Potass Cl/ PEG (Golytely) 4,000 ml 1X ONCE PO ; Start at 18:45; Stop 07/10/17 at 18:46; Status UNV Labetalol HCl (Trandate) 200 mg BID PO Last administered on 07/11/17 21:12; Start 07/11/17 at 21:00; Stop 07/12/17 at 07:56; Status DC Iron Sucrose 200 mg/Sodium Chloride 110 ml @ 55 mls/hr 3X/WEEK IV ; Start 07/11 at 09:30; Stop 07/11/17 at 09:58; Status DC Iron Sucrose 200 mg/Sodium Chloride 110 ml @ 55 mls/hr 3X/WEEK IV Last administered on 07/13/17 13:13; Start 07/11/17 at 10:30; Stop 07/20/17 at 10:59 Furosemide (Lasix) 80 mg BID92 IVP Last administered on 07/14/17 13:39; Start 07/11/17 at 14:00; Stop 07/16/17 at 22:00 Vitamin D (Vitamin D3) 5,000 unit DAILY PO Last administered on 07/14/17 09:09 ; Start 07/11/17 at 10:30; Stop 07/16/17 at 23:00 Spironolactone (Aldactone) 50 mg DAILY PO Last administered on 07/14/17 09:09; Start 07/11/17 at 10:30; Stop 07/16/17 at 23:00 Clonidine HCl (Catapres Tts-2) 1 patch WEEKLY TD Last administered on 10:32; Start 07/11/17 at 10:30 Clonidine HCl (Catapres) 0.2 mg 1X ONCE PO Last administered on 07/11/17 10: 32; Start 07/11/17 at 10:30; Stop 07/11/17 at 10:31; Status DC Lidocaine HCl (Lidocaine Pf 2% Vial) 5 ml STK-MED ONCE .ROUTE ; Start 07/11/17 at 11:14; Stop 07/11/17 at 11:15; Status DC Propofol 40 ml @ As Directed STK-MED ONCE IV ; Start 07/11/17 at 11:14; Stop at 11:15; Status DC Sulfur Hexafluoride Microspheres (Lumason) 25 mg STK-MED ONCE IVP ; Start at 11:39; Stop 07/11/17 at 11:40; Status DC Benzocaine (Hurricaine One) 1 spray STK-MED ONCE .ROUTE ; Start 07/11/17 at 12: 01; Stop 07/11/17 at 12:02; Status DC Lidocaine HCl (Xylocaine 2% Topical 30gm Tube) 30 fredi STK-MED ONCE TP ; Start at 12:01; Stop 07/11/17 at 12:02; Status DC Benzocaine (Hurricaine One) 2 spray 1X ONCE MM ; Start 07/11/17 at 12:05; Stop 07/11/17 at 12:07; Status DC Lidocaine HCl (Xylocaine 2% Topical 30gm Tube) 1 fredi 1X ONCE TP ; Start at 12:05; Stop 07/11/17 at 12:07; Status DC Sulfur Hexafluoride Microspheres (Lumason) 25 mg 1X ONCE IVP Last administered on 07/11/17 14:00; Start 07/11/17 at 14:00; Stop 07/11/17 at 14:01 ; Status DC Hydralazine HCl (Apresoline) 50 mg TID PO Last administered on 07/14/17 09:10; Start 07/12/17 at 09:00; Stop 07/16/17 at 23:00 Regadenoson (Lexiscan) 0.4 mg 1X ONCE IV Last administered on 07/12/17 09:37 ; Start 07/12/17 at 09:00; Stop 07/12/17 at 09:01; Status DC Isosorbide Mononitrate (Imdur) 60 mg DAILY PO Last administered on 07/14/17 09: 12; Start 07/13/17 at 09:00; Stop 07/16/17 at 23:00 Isosorbide Mononitrate (Imdur) 30 mg 1X ONCE PO Last administered on 10:35; Start 07/12/17 at 10:30; Stop 07/12/17 at 10:31; Status DC Iohexol (Omnipaque 350 Mg/ml) 100 ml STK-MED ONCE .ROUTE ; Start 07/13/17 at 08: 54; Stop 07/13/17 at 08:55; Status DC Heparin Sodium/ Sodium Chloride 500 ml @ As Directed STK-MED ONCE .ROUTE ; Start 07/13/17 at 08:55; Stop 07/13/17 at 08:56; Status DC Lidocaine HCl 20 ml STK-MED ONCE .ROUTE ; Start 07/13/17 at 08:55; Stop 07/13/17 at 08:56; Status DC Iodixanol (Visipaque 320) 100 ml STK-MED ONCE .ROUTE ; Start 07/13/17 at 08:55; Stop 07/13/17 at 08:56; Status DC Verapamil HCl (Verapamil) 5 mg STK-MED ONCE .ROUTE ; Start 07/13/17 at 09:05; Stop 07/13/17 at 09:06; Status DC Heparin Sodium (Porcine) (Heparin Sodium) 10,000 unit STK-MED ONCE .ROUTE ; Start 07/13/17 at 09:05; Stop 07/13/17 at 09:06; Status DC Fentanyl Citrate (Fentanyl 2ml Vial) 100 mcg STK-MED ONCE .ROUTE ; Start at 09:05; Stop 07/13/17 at 09:06; Status DC Midazolam HCl (Versed) 5 mg STK-MED ONCE .ROUTE ; Start 07/13/17 at 09:06; Stop 07/13/17 at 09:07; Status DC Nitroglycerin (Nitroglycerin) 200 mcg STK-MED ONCE .ROUTE ; Start 07/13/17 at 09: 07; Stop 07/13/17 at 09:08; Status DC Nitroglycerin (Nitroglycerin) 200 mcg 1X ONCE IART Last administered on 09:56; Start 07/13/17 at 09:30; Stop 07/13/17 at 09:33; Status DC Verapamil HCl (Verapamil) 2.5 mg 1X ONCE IART Last administered on 07/13/17 09 :56; Start 07/13/17 at 09:30; Stop 07/13/17 at 09:33; Status DC Heparin Sodium (Porcine) (Heparin Sodium) 2,500 unit 1X ONCE IART Last administered on 07/13/17 09:56; Start 07/13/17 at 09:30; Stop 07/13/17 at 09:33; Status DC Heparin Sodium/ Sodium Chloride 1,000 unit 1X ONCE IART Last administered on 09:53; Start 07/13/17 at 09:30; Stop 07/13/17 at 09:33; Status DC Midazolam HCl (Versed) 5 mg 1X ONCE IV Last administered on 07/13/17 09:54; Start 07/13/17 at 09:30; Stop 07/13/17 at 09:33; Status DC Fentanyl Citrate (Fentanyl 2ml Vial) 100 mcg 1X ONCE IV Last administered on 09:55; Start 07/13/17 at 09:30; Stop 07/13/17 at 09:33; Status DC Iodixanol (Visipaque 320) 100 ml 1X ONCE IART Last administered on 07/13/17 09 :53; Start 07/13/17 at 09:30; Stop 07/13/17 at 09:33; Status DC Lidocaine HCl 20 ml 1X ONCE IJ Last administered on 07/13/17 09:53; Start 07/13 at 09:30; Stop 07/13/17 at 09:33; Status DC Info (Do NOT chart on this entry -- for MONITORING) 1 each PRN DAILY PRN MC SEE COMMENTS; Start 07/13/17 at 09:45; Stop 07/15/17 at 09:44 Cefazolin Sodium 50 ml @ 100 mls/hr 1X ONCE IV ; Start 07/17/17 at 06:00; Stop 07/17/17 at 06:29 Heparin Sodium (Porcine) (Heparin Sodium) 10,000 unit STK-MED ONCE .ROUTE ; Start 07/13/17 at 14:25; Stop 07/13/17 at 14:26; Status DC Lidocaine/ Epinephrine (Xylocaine 1%-Epi 1:100,000) 20 ml STK-MED ONCE .ROUTE ; Start 07/13/17 at 14:25; Stop 07/13/17 at 14:26; Status DC Heparin Sodium/ Sodium Chloride 500 ml @ As Directed STK-MED ONCE .ROUTE ; Start 07/13/17 at 14:25; Stop 07/13/17 at 14:26; Status DC Midazolam HCl (Versed) 2 mg STK-MED ONCE .ROUTE ; Start 07/13/17 at 14:38; Stop 07/13/17 at 14:39; Status DC Fentanyl Citrate (Fentanyl 2ml Vial) 100 mcg STK-MED ONCE .ROUTE ; Start at 14:39; Stop 07/13/17 at 14:40; Status DC Cefazolin Sodium 50 ml @ As Directed STK-MED ONCE IV ; Start 07/13/17 at 14:39; Stop 07/13/17 at 14:40; Status DC Heparin Sodium/ Sodium Chloride 1,000 unit 1X ONCE IART Last administered on 15:13; Start 07/13/17 at 15:15; Stop 07/13/17 at 15:16; Status DC Midazolam HCl (Versed) 1 mg 1X ONCE IV Last administered on 07/13/17 15:14; Start 07/13/17 at 15:15; Stop 07/13/17 at 15:16; Status DC Fentanyl Citrate (Fentanyl 2ml Vial) 50 mcg 1X ONCE IV Last administered on 15:14; Start 07/13/17 at 15:15; Stop 07/13/17 at 15:16; Status DC Lidocaine/ Epinephrine (Xylocaine 1%-Epi 1:100,000) 10 ml 1X ONCE IJ Last administered on 07/13/17 15:13; Start 07/13/17 at 15:15; Stop 07/13/17 at 15:16; Status DC Cefazolin Sodium 50 ml @ 100 mls/hr 1X ONCE IV Last administered on 07/13/17 15:13; Start 07/13/17 at 15:15; Stop 07/13/17 at 15:44; Status DC Heparin Sodium (Porcine) (Heparin Sodium) 3,800 unit 1X ONCE INT CAT Last administered on 07/13/17 15:14; Start 07/13/17 at 15:15; Stop 07/13/17 at 15:16; Status DC Levofloxacin (Levaquin) 250 mg HS PO Last administered on 07/13/17 21:22; Start 07/13/17 at 21:00; Stop 07/14/17 at 11:58; Status DC Sodium Chloride 1,000 ml @ 1,000 mls/hr Q1H PRN IV hypotension; Start 07/13/17 at 15:39; Stop 07/13/17 at 21:38; Status DC Diphenhydramine HCl (Benadryl) 25 mg 1X PRN PRN IV ITCHING; Start 07/13/17 at 15 :45; Stop 07/14/17 at 15:44 Diphenhydramine HCl (Benadryl) 25 mg 1X PRN PRN IV ITCHING; Start 07/13/17 at 15 :45; Stop 07/14/17 at 15:44 Sodium Chloride (Normal Saline Flush) 10 ml 1X PRN PRN IV AP catheter pack; Start 07/13/17 at 15:45; Stop 07/14/17 at 15:44 Sodium Chloride (Normal Saline Flush) 10 ml 1X PRN PRN IV MACHINE PRECISION ETCHER catheter pack; Start 07/13/17 at 15:45; Stop 07/14/17 at 15:44 Info (PHARMACY MONITORING -- do not chart) 1 each PRN DAILY PRN MC SEE COMMENTS ; Start 07/13/17 at 15:45 Active Scripts Active Reported No Known Medications Prior To Admisstion (Info) Each 1 Each MC Vitals/I & O Vital Sign - Last 24 Hours 07/13/17 07/13/17 07/13/17 07/13/17 15:14 19:00 19:00 20:00 Temp 97.8 97.8 Pulse 70 52 Resp 17 16 17 B/P (MAP) 146/77 (100) Pulse Ox 100 100 95 O2 Delivery Nasal Cannula Room Air Room Air Room Air O2 Flow Rate 2.0 07/13/17 07/13/17 07/14/17 07/14/17 21:21 23:00 02:52 07:00 Temp 97.6 97.4 98.3 97.6 97.4 98.3 Pulse 70 67 66 62 Resp 18 16 16 B/P (MAP) 146/77 130/64 (86) 126/61 (82) 137/67 (90) Pulse Ox 99 96 100 O2 Delivery Room Air Room Air Room Air 07/14/17 07/14/17 07/14/17 07/14/17 08:00 09:10 09:11 09:12 Pulse 62 62 62 B/P (MAP) 137/67 137/67 137/67 O2 Delivery Room Air 07/14/17 11:00 Temp 97.6 97.6 Pulse 68 Resp 16 B/P (MAP) 122/61 (81) Pulse Ox 100 O2 Delivery Room Air FABRIZIO CLEMONS III DO Jul 14, 2017 14:17
--- NOTE | 2017-07-14 15:22 | PDOC ---
Renal-Progress Notes Subjective Notes Notes NO NEW COMPLAINTS History of Present Illness Hx of present illness BETTER Vitals Vitals Vital Signs Date Time Temp Pulse Resp B/P (MAP) Pulse Ox O2 Delivery O2 Flow Rate FiO2 07/14/17 11:00 97.6 68 16 122/61 (81) 100 Room Air 97.6 07/13/17 15:14 2.0 Weight Weight [ ] Labs Labs Laboratory Tests Test 07/14/17 04:30 White Blood Count 10.3 x10^3/uL (4.0-11.0) Red Blood Count 4.84 x10^6/uL (3.50-5.40) Hemoglobin 14.0 g/dL (12.0-15.5) Hematocrit 42.7 % (36.0-47.0) Mean Corpuscular Volume 88 fL (79-100) Mean Corpuscular Hemoglobin 29 pg (25-35) Mean Corpuscular Hemoglobin Concent 33 g/dL (31-37) Red Cell Distribution Width 19.2 % (11.5-14.5) Platelet Count 230 x10^3/uL (140-400) Neutrophils (%) (Auto) 83 % (31-73) Lymphocytes (%) (Auto) 7 % (24-48) Monocytes (%) (Auto) 9 % (0-9) Eosinophils (%) (Auto) 0 % (0-3) Basophils (%) (Auto) 1 % (0-3) Neutrophils # (Auto) 8.5 x10^3uL (1.8-7.7) Lymphocytes # (Auto) 0.8 x10^3/uL (1.0-4.8) Monocytes # (Auto) 0.9 x10^3/uL (0.0-1.1) Eosinophils # (Auto) 0.0 x10^3/uL (0.0-0.7) Basophils # (Auto) 0.1 x10^3/uL (0.0-0.2) Sodium Level 139 mmol/L (136-145) Potassium Level 5.5 mmol/L (3.5-5.1) Chloride Level 99 mmol/L (98-107) Carbon Dioxide Level 25 mmol/L (21-32) Anion Gap 15 (6-14) Blood Urea Nitrogen 24 mg/dL (7-20) Creatinine 2.6 mg/dL (0.6-1.0) Estimated GFR (Cockcroft-Gault) 23.3 Glucose Level 106 mg/dL (70-99) Calcium Level 9.9 mg/dL (8.5-10.1) Phosphorus Level 4.6 mg/dL (2.6-4.7) Magnesium Level 2.1 mg/dL (1.8-2.4) Albumin 3.4 g/dL (3.4-5.0) Micro Micro Microbiology 07/10/17 Urine Culture - Final, Complete 07/10/17 Urine Culture Result 1 (DEEPTHI) - Final, Complete Review of Systems Constitutional: yes: alert, oriented Ears/Nose/Throat: Yes: no symptom reported Eyes: Yes: no symptom reported Pulmonary: Yes no symptom reported Cardiovascular: Yes no symptom reported Gastrointestional: Yes: constipation Genitourinary: Yes: no symptom reported Musculoskeletal: Yes: muscle stiffness Skin: Yes no symptom reported Psychiatric/Neurological: Yes: no symptom reported Physical Exam General Appearance: no apparent distress Skin: warm Respiratory: bilateral CTA Heart: S1S2, RRR Abdomen: soft, bowel sounds present Genitourinary: bladder flat Neurology: alert, oriented Assessment Assessment IMP HYPERKALEMIA ANEMIA UREMIA HTN ESRD PLAN HD TODAY UF TO DW OP HD TO BE SET UP EDSON LOCO MD Jul 14, 2017 15:22
[2017-07-14] MEDS ORDERED: ACETAMINOPHEN 325 MG TABLET. PO PRN (15:45)
[2017-07-14] MEDS ORDERED: oxyCODONE/APAP 5/325 1 TAB TABLET PO PRN (15:45)
[2017-07-14 19:10] VITALS: BP 139/74
[2017-07-14] MEDS: ATORVASTATIN CALCIUM 20 MG TABLET PO SCH (21:43)
[2017-07-14 23:00] VITALS: BP 127/60
[2017-07-15 03:00] VITALS: BP 148/71
[2017-07-15 05:55] LABS: BASO # 0.1 x10^3/uL (0.0-0.2); BASO % 1 % (0-3); EOS % 1 % (0-3); HEMATOCRIT 40.3 % (36.0-47.0); HEMOGLOBIN 12.9 g/dL (12.0-15.5); LYMPH % 11 % (24-48); MEAN CORPUSCULAR HEMOGLOBIN 29 pg (25-35); MEAN CORPUSCULAR HGB CONC 32 g/dL (31-37); MEAN CORPUSCULAR VOLUME 89 fL (79-100); MONO % 12 % (0-9); NEUT % 76 % (31-73); PLATELET COUNT 211 x10^3/uL (140-400); RED BLOOD COUNT 4.51 x10^6/uL (3.50-5.40); RED CELL DISTRIBUTION WIDTH 19.5 % (11.5-14.5); WHITE BLOOD COUNT 9.5 x10^3/uL (4.0-11.0)
[2017-07-15 06:16] LABS: CALCIUM 9.2 mg/dL (8.5-10.1); CREATININE 2.3 mg/dL (0.6-1.0); GFR 26.8; PHOSPHORUS 3.9 mg/dL (2.6-4.7); POTASSIUM 4.2 mmol/L (3.5-5.1)
[2017-07-15] MEDS: HEPARIN PF for SUB-Q USE 5,000 UNIT/0.5 ML VIAL. SQ SCH ×3 (06:26→22:00)
[2017-07-15 07:00] VITALS: BP 166/86
[2017-07-15] MEDS: amLODIPine BESYLATE 10 MG TABLET PO SCH (08:36)
[2017-07-15] MEDS: POTASSIUM CHLORIDE 20 MEQ TABLET.ER. PO SCH ×2 (08:36→17:19)
[2017-07-15] MEDS: CHOLECALCIFEROL (VITAMIN D3) 5,000 UNIT CAPSULE PO SCH (08:36)
[2017-07-15] MEDS: ISOSORBIDE MONONITRATE ER 30 MG TAB.ER.24H PO SCH (08:37)
[2017-07-15] MEDS: FUROSEMIDE 40 MG/4 ML VIAL. IVP SCH ×2 (08:37→14:40)
[2017-07-15] MEDS: SPIRONOLACTONE 25 MG TABLET PO SCH (08:37)
--- NOTE | 2017-07-15 10:49 | RAD ---
Examination: CT chest without contrast History: History of preop cardiac surgery Comparison: None available Technique: Axial CT images of chest were performed without contrast. Coronal and sagittal reformats are performed PQRS Compliance Statement: One or more of the following individualized dose reduction techniques were utilized for this examination: 1. Automated exposure control 2. Adjustment of the mA and/or kV according to patient size 3. Use of iterative reconstruction technique Findings: The visualized thyroid gland grossly appears unremarkable. Right-sided dialysis catheter identified with the tip projecting in the distal SVC. Minimal fat stranding identified about the right dialysis catheter in the right neck region likely due to recent placement. The ascending aorta measures 3.8 cm in transverse dimension. Heart is grossly appears unremarkable. No evidence of pleural effusion. No radiologically significant mediastinal lymphadenopathy. The airways are patent. Mild atelectasis left lung base. The visualized noncontrasted liver, spleen, adrenals grossly appears unremarkable. Mild degenerative changes thoracic spine. Impression: 1. Mild aortic atherosclerosis. 2. Minimal atelectasis left lung base.
[2017-07-15 11:00] VITALS: BP 132/65
--- NOTE | 2017-07-15 14:30 | PDOC ---
Renal-Progress Notes Subjective Notes Notes NO COMPLAINTS History of Present Illness Hx of present illness STABLE Vitals Vitals Vital Signs Date Time Temp Pulse Resp B/P (MAP) Pulse Ox O2 Delivery O2 Flow Rate FiO2 07/15/17 11:00 98.5 71 16 132/65 (87) 99 Room Air 98.5 Weight Weight [ ] I.O. Intake and Output Intake and Output 07/16/17 07:00 Output Total 300 ml Balance -300 ml Output Urine Total 300 ml Labs Labs Laboratory Tests Test 07/15/17 04:30 White Blood Count 9.5 x10^3/uL (4.0-11.0) Red Blood Count 4.51 x10^6/uL (3.50-5.40) Hemoglobin 12.9 g/dL (12.0-15.5) Hematocrit 40.3 % (36.0-47.0) Mean Corpuscular Volume 89 fL (79-100) Mean Corpuscular Hemoglobin 29 pg (25-35) Mean Corpuscular Hemoglobin Concent 32 g/dL (31-37) Red Cell Distribution Width 19.5 % (11.5-14.5) Platelet Count 211 x10^3/uL (140-400) Neutrophils (%) (Auto) 76 % (31-73) Lymphocytes (%) (Auto) 11 % (24-48) Monocytes (%) (Auto) 12 % (0-9) Eosinophils (%) (Auto) 1 % (0-3) Basophils (%) (Auto) 1 % (0-3) Neutrophils # (Auto) 7.2 x10^3uL (1.8-7.7) Lymphocytes # (Auto) 1.0 x10^3/uL (1.0-4.8) Monocytes # (Auto) 1.1 x10^3/uL (0.0-1.1) Eosinophils # (Auto) 0.1 x10^3/uL (0.0-0.7) Basophils # (Auto) 0.1 x10^3/uL (0.0-0.2) Sodium Level 135 mmol/L (136-145) Potassium Level 4.2 mmol/L (3.5-5.1) Chloride Level 97 mmol/L (98-107) Carbon Dioxide Level 30 mmol/L (21-32) Anion Gap 8 (6-14) Blood Urea Nitrogen 15 mg/dL (7-20) Creatinine 2.3 mg/dL (0.6-1.0) Estimated GFR (Cockcroft-Gault) 26.8 Glucose Level 128 mg/dL (70-99) Calcium Level 9.2 mg/dL (8.5-10.1) Phosphorus Level 3.9 mg/dL (2.6-4.7) Magnesium Level 1.9 mg/dL (1.8-2.4) Albumin 3.0 g/dL (3.4-5.0) Micro Micro Microbiology 07/10/17 Urine Culture - Final, Complete 07/10/17 Urine Culture Result 1 (DEEPTHI) - Final, Complete Review of Systems Constitutional: yes: alert, oriented Ears/Nose/Throat: Yes: no symptom reported Eyes: Yes: no symptom reported Pulmonary: Yes no symptom reported Cardiovascular: Yes no symptom reported Gastrointestional: Yes: constipation Genitourinary: Yes: no symptom reported Musculoskeletal: Yes: muscle stiffness Skin: Yes no symptom reported Psychiatric/Neurological: Yes: no symptom reported Physical Exam General Appearance: no apparent distress Skin: warm Respiratory: bilateral CTA Heart: S1S2, RRR Abdomen: soft, bowel sounds present Genitourinary: bladder flat Neurology: alert, oriented Assessment Assessment IMP HYPERKALEMIA ANEMIA UREMIA HTN-NOT CONTROLLED ESRD CHF-COMPENSATED PLAN ADD [facility] HD TOMORROW OP HD TO BE SET UP EDSON LOCO MD Jul 15, 2017 14:30
[2017-07-15 14:45] VITALS: BP 151/72
--- NOTE | 2017-07-15 15:46 | PDOC ---
PROGRESS NOTES Chief Complaint Chief Complaint Acute hypoxic respiratory failure Hypertensive urgency PMH: CHF htn hld History of Present Illness History of Present Illness Pt sitting on side of bed, preparing for her shower. Chest wrapped to protect HD cath site. HD scheduled for tomorrow Vitals Vitals Vital Signs Date Time Temp Pulse Resp B/P (MAP) Pulse Ox O2 Delivery O2 Flow Rate FiO2 07/15/17 14:45 98.2 62 14 151/72 (98) 99 Room Air 98.2 Physical Exam General: Alert, Oriented X3, No acute distress Heart: Regular rate, Normal S1, Normal S2 Lungs: Clear Abdomen: Soft, No hepatosplenomegaly Extremities: No edema Skin: No significant lesion Labs LABS Laboratory Tests Test 07/15/17 04:30 White Blood Count 9.5 x10^3/uL (4.0-11.0) Red Blood Count 4.51 x10^6/uL (3.50-5.40) Hemoglobin 12.9 g/dL (12.0-15.5) Hematocrit 40.3 % (36.0-47.0) Mean Corpuscular Volume 89 fL (79-100) Mean Corpuscular Hemoglobin 29 pg (25-35) Mean Corpuscular Hemoglobin Concent 32 g/dL (31-37) Red Cell Distribution Width 19.5 % (11.5-14.5) Platelet Count 211 x10^3/uL (140-400) Neutrophils (%) (Auto) 76 % (31-73) Lymphocytes (%) (Auto) 11 % (24-48) Monocytes (%) (Auto) 12 % (0-9) Eosinophils (%) (Auto) 1 % (0-3) Basophils (%) (Auto) 1 % (0-3) Neutrophils # (Auto) 7.2 x10^3uL (1.8-7.7) Lymphocytes # (Auto) 1.0 x10^3/uL (1.0-4.8) Monocytes # (Auto) 1.1 x10^3/uL (0.0-1.1) Eosinophils # (Auto) 0.1 x10^3/uL (0.0-0.7) Basophils # (Auto) 0.1 x10^3/uL (0.0-0.2) Sodium Level 135 mmol/L (136-145) Potassium Level 4.2 mmol/L (3.5-5.1) Chloride Level 97 mmol/L (98-107) Carbon Dioxide Level 30 mmol/L (21-32) Anion Gap 8 (6-14) Blood Urea Nitrogen 15 mg/dL (7-20) Creatinine 2.3 mg/dL (0.6-1.0) Estimated GFR (Cockcroft-Gault) 26.8 Glucose Level 128 mg/dL (70-99) Calcium Level 9.2 mg/dL (8.5-10.1) Phosphorus Level 3.9 mg/dL (2.6-4.7) Magnesium Level 1.9 mg/dL (1.8-2.4) Albumin 3.0 g/dL (3.4-5.0) Review of Systems Review of Systems no fevers muscle stiffness Assessment and Plan Assessmemt and Plan 1. L Ventricular mass/thrombus: CV surgery consulted, rec excision. CT surg tentatively planned for Tues 2. CHF exacerbation: symptomatically improved. echo with mass in LV impeding fxn 3. Hypertensive urgency: labile BP. no renal artery stenosis on US. cont on Norvasc, clonidine. hydralazine and imdur 4. Renal failure with systemic early uremic s/s: nephrology following, HD tomorrow 5. Anemia: combined iron deficiency and inflammatory (CHF) etiology. Hbg 12.9 today 6. prophylaxis: heparin SQ 7. Recheck labs in am 8. Continue PT/OT 9. Mild malnutrition: albumin 3.0 Problems: Comment Review of Relevant I have reviewed the following items ryan (where applicable) has been applied. Labs Laboratory Tests Test 07/14/17 04:30 07/15/17 04:30 White Blood Count 10.3 x10^3/uL (4.0-11.0) 9.5 x10^3/uL (4.0-11.0) Red Blood Count 4.84 x10^6/uL (3.50-5.40) 4.51 x10^6/uL (3.50-5.40) Hemoglobin 14.0 g/dL (12.0-15.5) 12.9 g/dL (12.0-15.5) Hematocrit 42.7 % (36.0-47.0) 40.3 % (36.0-47.0) Mean Corpuscular Volume 88 fL (79-100) 89 fL (79-100) Mean Corpuscular Hemoglobin 29 pg (25-35) 29 pg (25-35) Mean Corpuscular Hemoglobin Concent 33 g/dL (31-37) 32 g/dL (31-37) Red Cell Distribution Width 19.2 % (11.5-14.5) 19.5 % (11.5-14.5) Platelet Count 230 x10^3/uL (140-400) 211 x10^3/uL (140-400) Neutrophils (%) (Auto) 83 % (31-73) 76 % (31-73) Lymphocytes (%) (Auto) 7 % (24-48) 11 % (24-48) Monocytes (%) (Auto) 9 % (0-9) 12 % (0-9) Eosinophils (%) (Auto) 0 % (0-3) 1 % (0-3) Basophils (%) (Auto) 1 % (0-3) 1 % (0-3) Neutrophils # (Auto) 8.5 x10^3uL (1.8-7.7) 7.2 x10^3uL (1.8-7.7) Lymphocytes # (Auto) 0.8 x10^3/uL (1.0-4.8) 1.0 x10^3/uL (1.0-4.8) Monocytes # (Auto) 0.9 x10^3/uL (0.0-1.1) 1.1 x10^3/uL (0.0-1.1) Eosinophils # (Auto) 0.0 x10^3/uL (0.0-0.7) 0.1 x10^3/uL (0.0-0.7) Basophils # (Auto) 0.1 x10^3/uL (0.0-0.2) 0.1 x10^3/uL (0.0-0.2) Sodium Level 139 mmol/L (136-145) 135 mmol/L (136-145) Potassium Level 5.5 mmol/L (3.5-5.1) 4.2 mmol/L (3.5-5.1) Chloride Level 99 mmol/L (98-107) 97 mmol/L (98-107) Carbon Dioxide Level 25 mmol/L (21-32) 30 mmol/L (21-32) Anion Gap 15 (6-14) 8 (6-14) Blood Urea Nitrogen 24 mg/dL (7-20) 15 mg/dL (7-20) Creatinine 2.6 mg/dL (0.6-1.0) 2.3 mg/dL (0.6-1.0) Estimated GFR (Cockcroft-Gault) 23.3 26.8 Glucose Level 106 mg/dL (70-99) 128 mg/dL (70-99) Calcium Level 9.9 mg/dL (8.5-10.1) 9.2 mg/dL (8.5-10.1) Phosphorus Level 4.6 mg/dL (2.6-4.7) 3.9 mg/dL (2.6-4.7) Magnesium Level 2.1 mg/dL (1.8-2.4) 1.9 mg/dL (1.8-2.4) Albumin 3.4 g/dL (3.4-5.0) 3.0 g/dL (3.4-5.0) Laboratory Tests Test 07/15/17 04:30 White Blood Count 9.5 x10^3/uL (4.0-11.0) Red Blood Count 4.51 x10^6/uL (3.50-5.40) Hemoglobin 12.9 g/dL (12.0-15.5) Hematocrit 40.3 % (36.0-47.0) Mean Corpuscular Volume 89 fL (79-100) Mean Corpuscular Hemoglobin 29 pg (25-35) Mean Corpuscular Hemoglobin Concent 32 g/dL (31-37) Red Cell Distribution Width 19.5 % (11.5-14.5) Platelet Count 211 x10^3/uL (140-400) Neutrophils (%) (Auto) 76 % (31-73) Lymphocytes (%) (Auto) 11 % (24-48) Monocytes (%) (Auto) 12 % (0-9) Eosinophils (%) (Auto) 1 % (0-3) Basophils (%) (Auto) 1 % (0-3) Neutrophils # (Auto) 7.2 x10^3uL (1.8-7.7) Lymphocytes # (Auto) 1.0 x10^3/uL (1.0-4.8) Monocytes # (Auto) 1.1 x10^3/uL (0.0-1.1) Eosinophils # (Auto) 0.1 x10^3/uL (0.0-0.7) Basophils # (Auto) 0.1 x10^3/uL (0.0-0.2) Sodium Level 135 mmol/L (136-145) Potassium Level 4.2 mmol/L (3.5-5.1) Chloride Level 97 mmol/L (98-107) Carbon Dioxide Level 30 mmol/L (21-32) Anion Gap 8 (6-14) Blood Urea Nitrogen 15 mg/dL (7-20) Creatinine 2.3 mg/dL (0.6-1.0) Estimated GFR (Cockcroft-Gault) 26.8 Glucose Level 128 mg/dL (70-99) Calcium Level 9.2 mg/dL (8.5-10.1) Phosphorus Level 3.9 mg/dL (2.6-4.7) Magnesium Level 1.9 mg/dL (1.8-2.4) Albumin 3.0 g/dL (3.4-5.0) Microbiology 07/10/17 Urine Culture - Final, Complete 07/10/17 Urine Culture Result 1 (DEEPTHI) - Final, Complete Medications Current Medications Nicardipine HCl 50 mg/Sodium Chloride 270 ml @ 0 mls/hr CONT PRN IV SEE I/O RECORD Last administered on 07/09/17 17:26; Start 07/09/17 at 16:00; Stop 07/10 at 10:36; Status DC Levofloxacin/ Dextrose 100 ml @ 100 mls/hr Q24H IV Last administered on 19:44; Start 07/09/17 at 19:00; Stop 07/10/17 at 17:06; Status DC Magnesium Sulfate/ Dextrose 50 ml @ 25 mls/hr PRN DAILY PRN IV for Mag < 1.7 on am labs; Start 07/10/17 at 10:15 Metoprolol Tartrate (Lopressor) 12.5 mg BID PO ; Start 07/10/17 at 10:15; Stop 07/10/17 at 11:13; Status DC Aspirin (Children'S Aspirin) 81 mg DAILYWBKFT PO Last administered on 10:32; Start 07/10/17 at 10:15; Stop 07/13/17 at 14:04; Status DC Amlodipine Besylate (Norvasc) 10 mg DAILY PO Last administered on 07/15/17 08: 36; Start 07/10/17 at 10:45; Stop 07/16/17 at 22:00 Furosemide (Lasix) 40 mg BID92 IVP Last administered on 07/11/17 08:40; Start 07/10/17 at 11:00; Stop 07/11/17 at 10:00; Status DC Potassium Chloride (Klor-Con) 40 meq BIDWMEALS PO Last administered on 08:36; Start 07/10/17 at 11:30; Stop 07/16/17 at 23:00 Heparin Sodium (Porcine) (Heparin Sq) 5,000 unit Q8HRS SQ Last administered on 07/15/17 14:44; Start 07/10/17 at 14:00; Stop 07/16/17 at 23:00 Carvedilol (Coreg) 6.25 mg BIDWMEALS PO Last administered on 07/11/17 08:39; Start 07/10/17 at 17:00; Stop 07/11/17 at 09:35; Status DC Hydralazine HCl (Apresoline) 10 mg PRN Q4HRS PRN IVP ELEVATED BP, SEE COMMENTS Last administered on 07/11/17 17:07; Start 07/10/17 at 10:45 Aspirin (Ecotrin) 81 mg DAILYWBKFT PO ; Start 07/11/17 at 08:00; Status UNV Atorvastatin Calcium (Lipitor) 20 mg QHS PO Last administered on 07/14/17 21:43 ; Start 07/10/17 at 21:00 Isosorbide Mononitrate (Imdur) 30 mg DAILY PO Last administered on 07/11/17 08 :38; Start 07/10/17 at 15:30; Stop 07/12/17 at 10:16; Status DC Levofloxacin/ Dextrose 50 ml @ 50 mls/hr Q24H IV Last administered on 21:27; Start 07/10/17 at 19:00; Stop 07/13/17 at 16:00; Status DC Fentanyl Citrate (Fentanyl 2ml Vial) 25 mcg PRN Q5MIN PRN IV MILD PAIN; Start 07/11/17 at 07:00; Stop 07/12/17 at 06:59; Status DC Fentanyl Citrate (Fentanyl 2ml Vial) 50 mcg PRN Q5MIN PRN IV MODERATE PAIN; Start 07/11/17 at 07:00; Stop 07/12/17 at 06:59; Status DC Morphine Sulfate 1 mg PRN Q10MIN PRN IV SEVERE PAIN; Start 07/11/17 at 07:00; Stop 07/12/17 at 06:59; Status DC Ringer's Solution 1,000 ml @ 30 mls/hr Q24H IV ; Start 07/11/17 at 07:00; Stop 07/11/17 at 18:59; Status DC Lidocaine HCl 2 ml PRN 1X PRN ID PRIOR TO IV START; Start 07/11/17 at 07:00; Stop 07/12/17 at 06:59; Status DC Hydromorphone HCl (Dilaudid) 0.5 mg PRN Q10MIN PRN IV SEV PAIN, Second choice; Start 07/11/17 at 07:00; Stop 07/12/17 at 06:59; Status DC Prochlorperazine Edisylate (Compazine) 5 mg PACU PRN PRN IV NAUSEA, MRX1; Start 07/11/17 at 07:00; Stop 07/12/17 at 06:59; Status DC Sodium Cl/Sod Bicarb/Potass Cl/ PEG (Golytely) 4,000 ml 1X ONCE PO ; Start at 18:45; Stop 07/10/17 at 18:46; Status UNV Labetalol HCl (Trandate) 200 mg BID PO Last administered on 07/11/17t 21:12; Start 07/11/17 at 21:00; Stop 07/12/17 at 07:56; Status DC Iron Sucrose 200 mg/Sodium Chloride 110 ml @ 55 mls/hr 3X/WEEK IV ; Start 07/11 at 09:30; Stop 07/11/17 at 09:58; Status DC Iron Sucrose 200 mg/Sodium Chloride 110 ml @ 55 mls/hr 3X/WEEK IV Last administered on 07/13/17 13:13; Start 07/11/17 at 10:30; Stop 07/20/17 at 10:59 Furosemide (Lasix) 80 mg BID92 IVP Last administered on 07/15/17 14:40; Start 07/11/17 at 14:00; Stop 07/16/17 at 22:00 Vitamin D (Vitamin D3) 5,000 unit DAILY PO Last administered on 07/15/17 08:36 ; Start 07/11/17 at 10:30; Stop 07/16/17 at 23:00 Spironolactone (Aldactone) 50 mg DAILY PO Last administered on 07/15/17 08:37; Start 07/11/17 at 10:30; Stop 07/16/17 at 23:00 Clonidine HCl (Catapres Tts-2) 1 patch WEEKLY TD Last administered on 10:32; Start 07/11/17 at 10:30 Clonidine HCl (Catapres) 0.2 mg 1X ONCE PO Last administered on 07/11/17 10: 32; Start 07/11/17 at 10:30; Stop 07/11/17 at 10:31; Status DC Lidocaine HCl (Lidocaine Pf 2% Vial) 5 ml STK-MED ONCE .ROUTE ; Start 07/11/17 at 11:14; Stop 07/11/17 at 11:15; Status DC Propofol 40 ml @ As Directed STK-MED ONCE IV ; Start 07/11/17 at 11:14; Stop at 11:15; Status DC Sulfur Hexafluoride Microspheres (Lumason) 25 mg STK-MED ONCE IVP ; Start at 11:39; Stop 07/11/17 at 11:40; Status DC Benzocaine (Hurricaine One) 1 spray STK-MED ONCE .ROUTE ; Start 07/11/17 at 12: 01; Stop 07/11/17 at 12:02; Status DC Lidocaine HCl (Xylocaine 2% Topical 30gm Tube) 30 fredi STK-MED ONCE TP ; Start at 12:01; Stop 07/11/17 at 12:02; Status DC Benzocaine (Hurricaine One) 2 spray 1X ONCE MM ; Start 07/11/17 at 12:05; Stop 07/11/17 at 12:07; Status DC Lidocaine HCl (Xylocaine 2% Topical 30gm Tube) 1 fredi 1X ONCE TP ; Start at 12:05; Stop 07/11/17 at 12:07; Status DC Sulfur Hexafluoride Microspheres (Lumason) 25 mg 1X ONCE IVP Last administered on 07/11/17 14:00; Start 07/11/17 at 14:00; Stop 07/11/17 at 14:01 ; Status DC Hydralazine HCl (Apresoline) 50 mg TID PO Last administered on 07/15/17 14:40; Start 07/12/17 at 09:00; Stop 07/16/17 at 23:00 Regadenoson (Lexiscan) 0.4 mg 1X ONCE IV Last administered on 07/12/17 09:37 ; Start 07/12/17 at 09:00; Stop 07/12/17 at 09:01; Status DC Isosorbide Mononitrate (Imdur) 60 mg DAILY PO Last administered on 07/15/17 08: 37; Start 07/13/17 at 09:00; Stop 07/16/17 at 23:00 Isosorbide Mononitrate (Imdur) 30 mg 1X ONCE PO Last administered on 10:35; Start 07/12/17 at 10:30; Stop 07/12/17 at 10:31; Status DC Iohexol (Omnipaque 350 Mg/ml) 100 ml STK-MED ONCE .ROUTE ; Start 07/13/17 at 08: 54; Stop 07/13/17 at 08:55; Status DC Heparin Sodium/ Sodium Chloride 500 ml @ As Directed STK-MED ONCE .ROUTE ; Start 07/13/17 at 08:55; Stop 07/13/17 at 08:56; Status DC Lidocaine HCl 20 ml STK-MED ONCE .ROUTE ; Start 07/13/17 at 08:55; Stop 07/13/17 at 08:56; Status DC Iodixanol (Visipaque 320) 100 ml STK-MED ONCE .ROUTE ; Start 07/13/17 at 08:55; Stop 07/13/17 at 08:56; Status DC Verapamil HCl (Verapamil) 5 mg STK-MED ONCE .ROUTE ; Start 07/13/17 at 09:05; Stop 07/13/17 at 09:06; Status DC Heparin Sodium (Porcine) (Heparin Sodium) 10,000 unit STK-MED ONCE .ROUTE ; Start 07/13/17 at 09:05; Stop 07/13/17 at 09:06; Status DC Fentanyl Citrate (Fentanyl 2ml Vial) 100 mcg STK-MED ONCE .ROUTE ; Start at 09:05; Stop 07/13/17 at 09:06; Status DC Midazolam HCl (Versed) 5 mg STK-MED ONCE .ROUTE ; Start 07/13/17 at 09:06; Stop 07/13/17 at 09:07; Status DC Nitroglycerin (Nitroglycerin) 200 mcg STK-MED ONCE .ROUTE ; Start 07/13/17 at 09: 07; Stop 07/13/17 at 09:08; Status DC Nitroglycerin (Nitroglycerin) 200 mcg 1X ONCE IART Last administered on 09:56; Start 07/13/17 at 09:30; Stop 07/13/17 at 09:33; Status DC Verapamil HCl (Verapamil) 2.5 mg 1X ONCE IART Last administered on 07/13/17 09 :56; Start 07/13/17 at 09:30; Stop 07/13/17 at 09:33; Status DC Heparin Sodium (Porcine) (Heparin Sodium) 2,500 unit 1X ONCE IART Last administered on 07/13/17 09:56; Start 07/13/17 at 09:30; Stop 07/13/17 at 09:33; Status DC Heparin Sodium/ Sodium Chloride 1,000 unit 1X ONCE IART Last administered on 09:53; Start 07/13/17 at 09:30; Stop 07/13/17 at 09:33; Status DC Midazolam HCl (Versed) 5 mg 1X ONCE IV Last administered on 07/13/17 09:54; Start 07/13/17 at 09:30; Stop 07/13/17 at 09:33; Status DC Fentanyl Citrate (Fentanyl 2ml Vial) 100 mcg 1X ONCE IV Last administered on 09:55; Start 07/13/17 at 09:30; Stop 07/13/17 at 09:33; Status DC Iodixanol (Visipaque 320) 100 ml 1X ONCE IART Last administered on 07/13/17 09 :53; Start 07/13/17 at 09:30; Stop 07/13/17 at 09:33; Status DC Lidocaine HCl 20 ml 1X ONCE IJ Last administered on 07/13/17 09:53; Start 07/13 at 09:30; Stop 07/13/17 at 09:33; Status DC Info (Do NOT chart on this entry -- for MONITORING) 1 each PRN DAILY PRN MC SEE COMMENTS; Start 07/13/17 at 09:45; Stop 07/15/17 at 09:44; Status DC Cefazolin Sodium 50 ml @ 100 mls/hr 1X ONCE IV ; Start 07/17/17 at 06:00; Stop 07/17/17 at 06:29 Heparin Sodium (Porcine) (Heparin Sodium) 10,000 unit STK-MED ONCE .ROUTE ; Start 07/13/17 at 14:25; Stop 07/13/17 at 14:26; Status DC Lidocaine/ Epinephrine (Xylocaine 1%-Epi 1:100,000) 20 ml STK-MED ONCE .ROUTE ; Start 07/13/17 at 14:25; Stop 07/13/17 at 14:26; Status DC Heparin Sodium/ Sodium Chloride 500 ml @ As Directed STK-MED ONCE .ROUTE ; Start 07/13/17 at 14:25; Stop 07/13/17 at 14:26; Status DC Midazolam HCl (Versed) 2 mg STK-MED ONCE .ROUTE ; Start 07/13/17 at 14:38; Stop 07/13/17 at 14:39; Status DC Fentanyl Citrate (Fentanyl 2ml Vial) 100 mcg STK-MED ONCE .ROUTE ; Start at 14:39; Stop 07/13/17 at 14:40; Status DC Cefazolin Sodium 50 ml @ As Directed STK-MED ONCE IV ; Start 07/13/17 at 14:39; Stop 07/13/17 at 14:40; Status DC Heparin Sodium/ Sodium Chloride 1,000 unit 1X ONCE IART Last administered on 15:13; Start 07/13/17 at 15:15; Stop 07/13/17 at 15:16; Status DC Midazolam HCl (Versed) 1 mg 1X ONCE IV Last administered on 9/1/17at 15:14; Start 07/13/17 at 15:15; Stop 07/13/17 at 15:16; Status DC Fentanyl Citrate (Fentanyl 2ml Vial) 50 mcg 1X ONCE IV Last administered on 15:14; Start 07/13/17 at 15:15; Stop 07/13/17 at 15:16; Status DC Lidocaine/ Epinephrine (Xylocaine 1%-Epi 1:100,000) 10 ml 1X ONCE IJ Last administered on 07/13/17 15:13; Start 07/13/17 at 15:15; Stop 07/13/17 at 15:16; Status DC Cefazolin Sodium 50 ml @ 100 mls/hr 1X ONCE IV Last administered on 07/13/17 15:13; Start 07/13/17 at 15:15; Stop 07/13/17 at 15:44; Status DC Heparin Sodium (Porcine) (Heparin Sodium) 3,800 unit 1X ONCE INT CAT Last administered on 07/13/17 15:14; Start 07/13/17 at 15:15; Stop 07/13/17 at 15:16; Status DC Levofloxacin (Levaquin) 250 mg HS PO Last administered on 07/13/17 21:22; Start 07/13/17 at 21:00; Stop 07/14/17 at 11:58; Status DC Sodium Chloride 1,000 ml @ 1,000 mls/hr Q1H PRN IV hypotension; Start 07/13/17 at 15:39; Stop 07/13/17 at 21:38; Status DC Diphenhydramine HCl (Benadryl) 25 mg 1X PRN PRN IV ITCHING; Start 07/13/17 at 15 :45; Stop 07/14/17 at 15:44; Status DC Diphenhydramine HCl (Benadryl) 25 mg 1X PRN PRN IV ITCHING; Start 07/13/17 at 15 :45; Stop 07/14/17 at 15:44; Status DC Sodium Chloride (Normal Saline Flush) 10 ml 1X PRN PRN IV AP catheter pack; Start 07/13/17 at 15:45; Stop 07/14/17 at 15:44; Status DC Sodium Chloride (Normal Saline Flush) 10 ml 1X PRN PRN IV [employer] catheter pack; Start 07/13/17 at 15:45; Stop 07/14/17 at 15:44; Status DC Info (PHARMACY MONITORING -- do not chart) 1 each PRN DAILY PRN MC SEE COMMENTS ; Start 07/13/17 at 15:45 Sodium Chloride 1,000 ml @ 1,000 mls/hr Q1H PRN IV hypotension; Start 07/14/17 at 14:07; Stop 07/14/17 at 20:06; Status DC Sodium Chloride 1,000 ml @ 400 mls/hr Q2H30M PRN IV PATENCY; Start 07/14/17 at 14:07; Stop 07/15/17 at 02:06; Status DC Info (PHARMACY MONITORING -- do not chart) 1 each PRN DAILY PRN MC SEE COMMENTS ; Start 07/14/17 at 14:15; Status UNV Info (PHARMACY MONITORING -- do not chart) 1 each PRN DAILY PRN MC SEE COMMENTS ; Start 07/14/17 at 14:15; Status UNV Acetaminophen (Tylenol) 650 mg PRN Q6HRS PRN PO mild pain Last administered on 07/14/17t 15:54; Start 07/14/17 at 15:45 Oxycodone/ Acetaminophen (Percocet 5/325) 1 tab PRN Q6HRS PRN PO moderate - severe pain; Start 07/14/17 at 15:45 Losartan Potassium (Cozaar) 50 mg DAILY PO ; Start 07/15/17 at 15:00 Active Scripts Active Reported No Known Medications Prior To Admisstion (Info) Each 1 Each Vitals/I & O Vital Sign - Last 24 Hours 07/14/17 07/14/17 07/14/17 07/14/17 19:10 20:00 21:44 23:00 Temp 97.8 98.2 97.8 98.2 Pulse 74 74 83 Resp 18 18 B/P (MAP) 139/74 (95) 139/74 127/60 (82) Pulse Ox 100 94 O2 Delivery Room Air Room Air Room Air 07/15/17 07/15/17 07/15/17 07/15/17 03:00 07:00 08:00 08:36 Temp 98.6 98.0 98.6 98.0 Pulse 62 92 92 Resp 18 16 B/P (MAP) 148/71 (96) 166/86 (112) 166/86 Pulse Ox 98 98 O2 Delivery Room Air Room Air Room Air 07/15/17 07/15/17 07/15/17 07/15/17 08:37 08:37 11:00 14:40 Temp 98.5 98.5 Pulse 92 92 71 70 Resp 16 B/P (MAP) 166/86 166/86 132/65 (87) 151/72 Pulse Ox 99 O2 Delivery Room Air 07/15/17 14:45 Temp 98.2 98.2 Pulse 62 Resp 14 B/P (MAP) 151/72 (98) Pulse Ox 99 O2 Delivery Room Air Intake and Output 07/15/17 07/15/17 07/16/17 15:00 23:00 07:00 Output Total 300 ml Balance -300 ml FABRIZIO CLEMONS III DO Jul 15, 2017 15:46
[2017-07-15] MEDS: LOSARTAN POTASSIUM 50 MG TABLET. PO SCH (17:23)
[2017-07-15 19:40] VITALS: BP 125/66
[2017-07-15] MEDS: ATORVASTATIN CALCIUM 20 MG TABLET PO SCH (20:28)
[2017-07-15 23:25] VITALS: BP 102/58
[2017-07-16 03:50] VITALS: BP 115/61
[2017-07-16 04:49] LABS: BASO # 0.1 x10^3/uL (0.0-0.2); BASO % 1 % (0-3); EOS % 0 % (0-3); HEMATOCRIT 43.8 % (36.0-47.0); HEMOGLOBIN 13.8 g/dL (12.0-15.5); LYMPH # 0.9 x10^3/uL (1.0-4.8); LYMPH % 7 % (24-48); MEAN CORPUSCULAR HEMOGLOBIN 28 pg (25-35); MEAN CORPUSCULAR HGB CONC 32 g/dL (31-37); MEAN CORPUSCULAR VOLUME 90 fL (79-100); MONO % 9 % (0-9); NEUT % 83 % (31-73); PLATELET COUNT 232 x10^3/uL (140-400); RED BLOOD COUNT 4.88 x10^6/uL (3.50-5.40); RED CELL DISTRIBUTION WIDTH 18.6 % (11.5-14.5); WHITE BLOOD COUNT 12.4 x10^3/uL (4.0-11.0)
[2017-07-16 05:06] LABS: ALBUMIN 3.3 g/dL (3.4-5.0); CALCIUM 9.8 mg/dL (8.5-10.1); CREATININE 3.6 mg/dL (0.6-1.0); PHOSPHORUS 3.8 mg/dL (2.6-4.7); POTASSIUM 5.1 mmol/L (3.5-5.1)
[2017-07-16] MEDS: HEPARIN PF for SUB-Q USE 5,000 UNIT/0.5 ML VIAL. SQ SCH ×3 (06:50→20:20)
[2017-07-16] MEDS ORDERED: IV NORMAL SALINE 1000ML BAG 1,000 ML IV PRN (07:17)
[2017-07-16 07:46] VITALS: BP 127/69
[2017-07-16] MEDS: POTASSIUM CHLORIDE 20 MEQ TABLET.ER. PO SCH ×2 (08:00→15:33)
[2017-07-16] MEDS: amLODIPine BESYLATE 10 MG TABLET PO SCH (09:00)
[2017-07-16] MEDS: ISOSORBIDE MONONITRATE ER 30 MG TAB.ER.24H PO SCH (09:00)
[2017-07-16] MEDS: LOSARTAN POTASSIUM 50 MG TABLET. PO SCH (09:00)
[2017-07-16] MEDS: SPIRONOLACTONE 25 MG TABLET PO SCH (09:00)
[2017-07-16] MEDS: FUROSEMIDE 40 MG/4 ML VIAL. IVP SCH ×2 (09:00→14:00)
--- NOTE | 2017-07-16 09:03 | PDOC ---
PROGRESS NOTES Chief Complaint Chief Complaint Acute hypoxic respiratory failure Hypertensive urgency ASSESSMENT AND PLAN: 1. L Ventricular mass/thrombus: resection planned for tomorrow 2. CHF exacerbation: symptomatically stable. echo with mass in LV impeding fxn 3. Hypertensive urgency: labile BP. no renal artery stenosis on US. cont on Norvasc, clonidine. hydralazine, cozaar , spironolactone and imdur 4. Renal failure: on HD to optimize prior to Surgery, incl uremic thrombasthenia 5. Anemia: combined iron deficiency and inflammatory (CHF) etiology. on IV iron 6. Hypokalemia: repleted. monitor. 7. Hypomagnesemia: replete PRN 8. Leukocytosis: mild, reactive. no infectious signs or sx. monitor 9. prophylaxis: heparin SQ History of Present Illness History of Present Illness denies SOB, cough, CP, abd c/o or dysuria Vitals Vitals Vital Signs Date Time Temp Pulse Resp B/P (MAP) Pulse Ox O2 Delivery O2 Flow Rate FiO2 07/16/17 07:46 98.1 70 18 127/69 (88) 95 Room Air 98.1 Physical Exam General: Alert, Oriented X3, Cooperative, No acute distress Heart: Regular rate Lungs: Clear Abdomen: Soft, No tenderness Extremities: No edema Skin: No significant lesion Labs LABS Laboratory Tests Test 07/16/17 04:13 White Blood Count 12.4 x10^3/uL (4.0-11.0) Red Blood Count 4.88 x10^6/uL (3.50-5.40) Hemoglobin 13.8 g/dL (12.0-15.5) Hematocrit 43.8 % (36.0-47.0) Mean Corpuscular Volume 90 fL (79-100) Mean Corpuscular Hemoglobin 28 pg (25-35) Mean Corpuscular Hemoglobin Concent 32 g/dL (31-37) Red Cell Distribution Width 18.6 % (11.5-14.5) Platelet Count 232 x10^3/uL (140-400) Neutrophils (%) (Auto) 83 % (31-73) Lymphocytes (%) (Auto) 7 % (24-48) Monocytes (%) (Auto) 9 % (0-9) Eosinophils (%) (Auto) 0 % (0-3) Basophils (%) (Auto) 1 % (0-3) Neutrophils # (Auto) 10.3 x10^3uL (1.8-7.7) Lymphocytes # (Auto) 0.9 x10^3/uL (1.0-4.8) Monocytes # (Auto) 1.1 x10^3/uL (0.0-1.1) Eosinophils # (Auto) 0.0 x10^3/uL (0.0-0.7) Basophils # (Auto) 0.1 x10^3/uL (0.0-0.2) Sodium Level 135 mmol/L (136-145) Potassium Level 5.1 mmol/L (3.5-5.1) Chloride Level 98 mmol/L (98-107) Carbon Dioxide Level 25 mmol/L (21-32) Anion Gap 12 (6-14) Blood Urea Nitrogen 30 mg/dL (7-20) Creatinine 3.6 mg/dL (0.6-1.0) Estimated GFR (Cockcroft-Gault) 16.0 Glucose Level 130 mg/dL (70-99) Calcium Level 9.8 mg/dL (8.5-10.1) Phosphorus Level 3.8 mg/dL (2.6-4.7) Albumin 3.3 g/dL (3.4-5.0) JOEY OSUNA MD Jul 16, 2017 09:03
--- NOTE | 2017-07-16 11:00 | PDOC ---
Renal-Progress Notes Subjective Notes Notes NO COMPLAINTS History of Present Illness Hx of present illness STABLE Vitals Vitals Vital Signs Date Time Temp Pulse Resp B/P (MAP) Pulse Ox O2 Delivery O2 Flow Rate FiO2 07/16/17 07:46 98.1 70 18 127/69 (88) 95 Room Air 98.1 Weight Weight [ ] I.O. Intake and Output Intake and Output 07/17/17 07:00 Intake Total 120 ml Balance 120 ml Intake Oral 120 ml Labs Labs Laboratory Tests Test 07/16/17 04:13 White Blood Count 12.4 x10^3/uL (4.0-11.0) Red Blood Count 4.88 x10^6/uL (3.50-5.40) Hemoglobin 13.8 g/dL (12.0-15.5) Hematocrit 43.8 % (36.0-47.0) Mean Corpuscular Volume 90 fL (79-100) Mean Corpuscular Hemoglobin 28 pg (25-35) Mean Corpuscular Hemoglobin Concent 32 g/dL (31-37) Red Cell Distribution Width 18.6 % (11.5-14.5) Platelet Count 232 x10^3/uL (140-400) Neutrophils (%) (Auto) 83 % (31-73) Lymphocytes (%) (Auto) 7 % (24-48) Monocytes (%) (Auto) 9 % (0-9) Eosinophils (%) (Auto) 0 % (0-3) Basophils (%) (Auto) 1 % (0-3) Neutrophils # (Auto) 10.3 x10^3uL (1.8-7.7) Lymphocytes # (Auto) 0.9 x10^3/uL (1.0-4.8) Monocytes # (Auto) 1.1 x10^3/uL (0.0-1.1) Eosinophils # (Auto) 0.0 x10^3/uL (0.0-0.7) Basophils # (Auto) 0.1 x10^3/uL (0.0-0.2) Sodium Level 135 mmol/L (136-145) Potassium Level 5.1 mmol/L (3.5-5.1) Chloride Level 98 mmol/L (98-107) Carbon Dioxide Level 25 mmol/L (21-32) Anion Gap 12 (6-14) Blood Urea Nitrogen 30 mg/dL (7-20) Creatinine 3.6 mg/dL (0.6-1.0) Estimated GFR (Cockcroft-Gault) 16.0 Glucose Level 130 mg/dL (70-99) Calcium Level 9.8 mg/dL (8.5-10.1) Phosphorus Level 3.8 mg/dL (2.6-4.7) Albumin 3.3 g/dL (3.4-5.0) Micro Micro Microbiology 07/10/17 Urine Culture - Final, Complete 07/10/17 Urine Culture Result 1 (DEEPTHI) - Final, Complete Review of Systems Constitutional: yes: alert, oriented Ears/Nose/Throat: Yes: no symptom reported Eyes: Yes: no symptom reported Pulmonary: Yes no symptom reported Cardiovascular: Yes no symptom reported Gastrointestional: Yes: constipation Genitourinary: Yes: no symptom reported Musculoskeletal: Yes: muscle stiffness Skin: Yes no symptom reported Psychiatric/Neurological: Yes: no symptom reported Physical Exam General Appearance: no apparent distress Skin: warm Respiratory: bilateral CTA Heart: S1S2, RRR Abdomen: soft, bowel sounds present Genitourinary: bladder flat Neurology: alert, oriented Assessment Assessment IMP HYPERKALEMIA ANEMIA UREMIA HTN-CONTROLLED ESRD CHF-COMPENSATED PLAN HD TODAY UF TO DW OP HD TO BE SET UP EDOSN LOCO MD Jul 16, 2017 11:00
[2017-07-16 14:49] VITALS: BP 116/66
[2017-07-16] MEDS: IRON SUCROSE COMPLEX 200 MG in IV NORMAL SALINE 100ML 100 ML IV SCH (15:56)
[2017-07-16] MEDS: CHOLECALCIFEROL (VITAMIN D3) 5,000 UNIT CAPSULE PO SCH (15:59)
[2017-07-16 19:20] VITALS: BP 128/77
[2017-07-16] MEDS: ATORVASTATIN CALCIUM 20 MG TABLET PO SCH (20:32)
[2017-07-16 23:10] VITALS: BP 120/64
[2017-07-17 03:00] VITALS: BP_SYST 90
[2017-07-17 04:50] VITALS: BP_SYST 169; BP_SYST 171; BP_DIAS 97; BP_DIAS 98
[2017-07-17 05:36] LABS: BASO # 0.1 x10^3/uL (0.0-0.2); BASO % 1 % (0-3); EOS % 1 % (0-3); HEMATOCRIT 42.6 % (36.0-47.0); HEMOGLOBIN 14.2 g/dL (12.0-15.5); LYMPH # 1.1 x10^3/uL (1.0-4.8); LYMPH % 10 % (24-48); MEAN CORPUSCULAR HEMOGLOBIN 29 pg (25-35); MEAN CORPUSCULAR HGB CONC 33 g/dL (31-37); MEAN CORPUSCULAR VOLUME 88 fL (79-100); MONO % 11 % (0-9); NEUT % 78 % (31-73); PLATELET COUNT 229 x10^3/uL (140-400); RED BLOOD COUNT 4.85 x10^6/uL (3.50-5.40); WHITE BLOOD COUNT 10.6 x10^3/uL (4.0-11.0)
[2017-07-17] MEDS ORDERED: POTASSIUM CHLORIDE 15 MEQ, SODIUM BICARBONATE VIAL 12.5 MEQ in IV ELECTROLYTE-S (PH 7.4... IRR ONE (06:00)
[2017-07-17] MEDS ORDERED: POTASSIUM CHLORIDE 70 MEQ, SODIUM BICARBONATE VIAL 12.5 MEQ, LIDOCAINE 2% 24 ML in IV E... IRR ONE (06:00)
[2017-07-17 06:02] LABS: ALBUMIN 3.1 g/dL (3.4-5.0); CALCIUM 9.5 mg/dL (8.5-10.1); CREATININE 2.7 mg/dL (0.6-1.0); GFR 22.3; PHOSPHORUS 4.4 mg/dL (2.6-4.7); POTASSIUM 4.1 mmol/L (3.5-5.1)
[2017-07-17] MEDS ORDERED: PHENYLEPHRINE 10 MG/ML VIAL. ONE (06:57)
[2017-07-17] MEDS ORDERED: EPINEPHrine 1 MG/ML VIAL ONE (06:57)
[2017-07-17] MEDS ORDERED: ETOMIDATE 20 MG/10 ML VIAL. IV ONE (06:57)
[2017-07-17] MEDS ORDERED: ROCURONIUM 100 MG/10 ML VIAL. ONE (06:57)
[2017-07-17] MEDS ORDERED: ONDANSETRON PF 4 MG/2 ML VIAL. ONE (06:57)
[2017-07-17] MEDS ORDERED: MIDAZOLAM HCL/PF 5 MG/5 ML VIAL. ONE (06:57)
[2017-07-17] MEDS ORDERED: PROPOFOL 20 ML IV ONE (06:57)
[2017-07-17] MEDS ORDERED: LIDOCAINE 2% PF Vial for OR 5 ML VIAL. ONE (06:57)
[2017-07-17] MEDS ORDERED: DEXAMETHASONE SOD PHOS 20 MG/5 ML VIAL. ONE (06:57)
[2017-07-17] MEDS ORDERED: NITROGLYCERIN PREMIX 250 ML IV ONE (06:57)
[2017-07-17] MEDS ORDERED: AMINOCAPROIC ACID 5,000 MG/20 ML VIAL. IV ONE (06:57)
[2017-07-17] MEDS ORDERED: SUFentanil 100 MCG/2 ML AMPUL. ONE (06:57)
[2017-07-17] MEDS ORDERED: HEPARIN 30,000 UNIT/30 ML VIAL. ONE (06:58)
[2017-07-17] MEDS ORDERED: IV RINGERS,LACTATED 1000ML 1,000 ML IV SCH (07:00)
[2017-07-17] MEDS ORDERED: ONDANSETRON PF 4 MG/2 ML VIAL. IV PRN (07:00)
[2017-07-17] MEDS ORDERED: MORPHINE SULFATE 2 MG/ML DISP.SYRIN. IV PRN (07:00)
[2017-07-17] MEDS ORDERED: fentaNYL PF VIAL 100 MCG/2 ML VIAL IV PRN ×2 (07:00)
[2017-07-17] MEDS ORDERED: LIDOCAINE 1% 1 ML SYRINGE. ID PRN (07:00)
[2017-07-17] MEDS ORDERED: HYDROmorphone 2 MG/ML VIAL IV PRN (07:00)
[2017-07-17] MEDS ORDERED: PROCHLORPERAZINE 10 MG/2 ML VIAL. IV PRN (07:00)
--- NOTE | 2017-07-17 07:13 | EKG ---
[facility] [address] [place] [address] Test Date: 2017-07-17 Test Time: 07:08:26 Pat Name: GARCÍA SHORT Department: Room: 258 1 Gender: F [employer] Supervisor: LYNDA : 1965 Requested By: PANFILO AWAN Order Number: [id number] Reading MD: Yaima Self Measurements Intervals Wilson Rate: 79 P: 39 RI: 148 QRS: -27 QRSD: 94 T: 169 QT: 366 QTc: 421 Interpretive Statements SINUS RHYTHM LEFT ATRIAL ABNORMALITY LEFTWARD AXIS LVH WITH REPOLARIZATION ABNORMALITY ALSO CONSIDER MYOCARDIAL ISCHENIA ABNORMAL ECG Electronically Signed On 07-21-2017 9:11:07 CDT by Yaima Self
[2017-07-17] MEDS ORDERED: SURGICEL HEMOSTAT 4X8 EACH. ONE (07:35)
[2017-07-17] MEDS ORDERED: VANCOMYCIN 10GM VIAL for OR. ONE (07:35)
[2017-07-17] MEDS: IV NORMAL SALINE 1000ML BAG 1,000 ML IV SCH (07:51)
[2017-07-17] MEDS ORDERED: METOPROLOL TARTRATE 5 MG/5 ML VIAL. ONE (08:04)
[2017-07-17] MEDS: LOSARTAN POTASSIUM 50 MG TABLET. PO SCH (09:00)
[2017-07-17] MEDS ORDERED: SULFUR HEXAFLUORIDE MICROSPHR 25 MG VIAL. IVP ONE ×3 (09:02→10:15)
[2017-07-17] MEDS ORDERED: GLYCOPYRROLATE 1 MG/5 ML VIAL. ONE (09:22)
[2017-07-17] MEDS ORDERED: NEOSTIGMINE METHYLSULFATE 5 MG/5 ML SYRINGE. ONE (09:23)
[2017-07-17] MEDS ORDERED: hydrALAZINE 20 MG/ML VIAL. ONE (10:01)
[2017-07-17] MEDS ORDERED: ISOFLURANE > 120 MINUTES. IH ONE (10:24)
--- NOTE | 2017-07-17 10:32 | PDOC ---
Provider Note Provider Note Ms Rolle was scheduled for open-heart surgery and excision of LV mass today. The preoperative transesophageal echo was not able to demonstrate the mass. Multiple T images were obtained and intravenous contrast was administered. Nevertheless we were still not able to find the mass in the LV or in the left atrium. The patient has not demonstrated signs of stroke or peripheral ischemia. Since the mass was not present in the LV, her operation was canceled. Continue medical management as per medical team. No indication for head or whole -body CT, unless the patient demonstrates analogous symptomatology. FAYE BERNABE MD Jul 17, 2017 10:32
--- NOTE | 2017-07-17 11:35 | RAD ---
Indication post left IJ central line placement. The heart and pulmonary vessels are normal. There is some minimal linear atelectasis in the left mid lung. Right-sided dialysis catheter is noted. A left central line is noted with its tip at the expected position of the subclavian brachiocephalic junction. There is an oblique line at the left upper lung and a small pneumothorax is suspect. This line could be artifactual. An expiratory film of the chest may be useful. IMPRESSION: Possible small left pneumothorax. See above discussion
--- NOTE | 2017-07-17 11:54 | PDOC ---
SUBJECTIVE ROS ESRD Doing well - CT Surgery cancelled after LV Thrombus was not re-demonstrable CVS: no Orthopnea, no CP RESP: no SOB, no CASAS GI: no Nausea, no Vomiting : no Dysuria, no Urgency OBJECTIVE Vital Signs Vital Signs Date Time Temp Pulse Resp B/P (MAP) Pulse Ox O2 Delivery O2 Flow Rate FiO2 07/17/17 11:34 84 16 146/70 94 Room Air 07/17/17 10:49 100.0 100.0 07/17/17 10:19 10 I & 0 Intake and Output 07/18/17 07:00 Intake Total 550 ml Output Total 125 ml Balance 425 ml IV Total 550 ml Output Urine Total 125 ml Estimated Blood Loss 0 ml PHYSICAL EXAM Physical Exam General Appearance: Awake Alert Oriented x 3 In no Distress Eyes: VIsion Unchanged Conjunctiva Normal EN: No EN Drainage Mucous Memb. moist Neck: no JVD min JVP Supple no Thyromegaly CVS: S1 S2 ? Murmur No Gallop No Rub +2 Edema Resp: rare basal Rales no Rhonchi no Acc. Muscle use GI: BS +ve NO Bruit Non Tender Non Distended : no CVA tenderness; no Suprapubic Tenderness Assessment & Plan: ESRD: Current fluid and E-lyte status does not necessitate emergent need for dialysis. Will re-evaluate for dialysis in the am and continue on MWF schedule. Fluid Overload (POA) - now clinically compensated Edema - resolved with Diuresis as ordered ; ct to manage with HD HTN - now better controlled Fedef state: as noted so IV Iron as ordered; Proteinruia - 2.7gms. S. Protein Gap is small so no PEPs ordered yet COMMENT/RELEVANT DATA Meds Current Medications Medications (Trade) Dose Ordered Sig/Yeison Start Time Stop Time Status Last Admin Dose Admin Acetaminophen (Tylenol) 650 mg PRN Q6HRS PRN 07/14/17 15:45 07/14/17 15:54 650 MG Aminocaproic Acid (Amicar) 5,000 mg STK-MED ONCE 07/17/17 06:57 07/17/17 06:58 DC Amlodipine Besylate (Norvasc) 10 mg DAILY 07/10/17 10:45 07/16/17 22:00 DC 07/15/17 08:36 10 MG Aspirin (Children'S Aspirin) 81 mg [id number] 07/10/17 10:15 07/13/17 14:04 DC 07/12/17 10:32 81 MG Aspirin (Ecotrin) 81 mg DAILYWBK07/11/17 08:00 UNV Atorvastatin Calcium (Lipitor) 20 mg QHS 07/10/17 21:00 07/16/17 20:32 20 MG Benzocaine (Hurricaine One) 2 spray 1X ONCE 07/11/17 12:05 07/11/17 12:07 DC Carvedilol (Coreg) 6.25 mg BIDWMEALS 07/10/17 17:00 07/11/17 09:35 DC 07/11/17 08:39 6.25 MG Cefazolin Sodium 1 gm/Sodium Chloride 500 ml @ 500 mls/hr 1X PERIOP ONCE 07/17/17 06:00 07/17/17 07:40 DC Cellulose 1 each STK-MED ONCE 07/17/17 07:35 07/17/17 07:36 DC Clonidine HCl (Catapres Tts-2) 1 patch WEEKLY 07/11/17 10:30 07/11/17 10:32 1 PATCH Clonidine HCl (Catapres) 0.2 mg 1X ONCE 07/11/17 10:30 07/11/17 10:31 DC 07/11/17 10:32 0.2 MG Dexamethasone Sodium Phosphate (Decadron) 20 mg STK-MED ONCE 07/17/17 06:57 07/17/17 06:58 DC Diphenhydramine HCl (Benadryl) 25 mg 1X PRN PRN 07/13/17 15:45 07/14/17 15:44 DC Epinephrine HCl (Adrenalin) 1 mg STK-MED ONCE 07/17/17 06:57 07/17/17 06:58 DC Etomidate (Amidate) 20 mg STK-MED ONCE 07/17/17 06:57 07/17/17 06:58 DC Fentanyl Citrate (Fentanyl 2ml Vial) 50 mcg PRN Q5MIN PRN 07/17/17 07:00 07/18/17 06:59 Furosemide (Lasix) 80 mg [id number] 07/11/17 14:00 07/16/17 22:00 DC 07/15/17 14:40 80 MG Glycopyrrolate (Robinul) 1 mg STK-MED ONCE 07/17/17 09:22 07/17/17 09:23 DC Heparin Sodium (Porcine) 30,000 unit STK-MED ONCE 07/17/17 06:58 07/17/17 06:59 DC Heparin Sodium (Porcine) (Heparin Sodium) 3,800 unit 1X ONCE 07/13/17 15:15 07/13/17 15:16 DC 07/13/17 15:14 3,800 UNIT Heparin Sodium (Porcine) (Heparin Sq) 5,000 unit Q8HRS 07/10/17 14:00 07/16/17 23:00 DC 07/16/17 16:00 5,000 UNIT Heparin Sodium/ Sodium Chloride 1,000 unit 1X ONCE 07/13/17 15:15 07/13/17 15:16 DC 07/13/17 15:13 1,000 UNIT Hydralazine HCl (Apresoline) 20 mg STK-MED ONCE 07/17/17 10:01 07/17/17 10:02 DC Hydromorphone HCl (Dilaudid) 0.5 mg PRN Q10MIN PRN 07/17/17 07:00 07/18/17 06:59 Info (Do NOT chart on this entry -- for MONITORING) 1 each PRN DAILY PRN 07/13/17 09:45 07/15/17 09:44 DC Info (PHARMACY MONITORING -- do not chart) 1 each PRN DAILY PRN 07/14/17 14:15 UNV Iodixanol (Visipaque 320) 100 ml 1X ONCE 07/13/17 09:30 07/13/17 09:33 DC 07/13/17 09:53 45 ML Iohexol (Omnipaque 350 Mg/ml) 100 ml STK-MED ONCE 07/13/17 08:54 07/13/17 08:55 DC Iron Sucrose 200 mg/Sodium Chloride 110 ml @ 55 mls/hr 3X/WEEK 07/11/17 10:30 07/20/17 10:59 07/16/17 15:56 55 MLS/HR Isoflurane (Isoflurane) 90 ml STK-MED ONCE 07/17/17 10:24 07/17/17 10:25 DC Isosorbide Mononitrate (Imdur) 30 mg 1X ONCE 07/12/17 10:30 07/12/17 10:31 DC 07/12/17 10:35 30 MG Labetalol HCl (Trandate) 200 mg BID 07/11/17 21:00 07/12/17 07:56 DC 07/11/17 21:12 200 MG Levofloxacin (Levaquin) 250 mg HS 07/13/17 21:00 07/14/17 11:58 DC 07/13/17 21:22 250 MG Levofloxacin/ Dextrose 50 ml @ 50 mls/hr Q24H 07/10/17 19:00 07/13/17 16:00 DC 07/12/17 21:27 50 MLS/HR Lidocaine HCl (Lidocaine Pf 2% Vial) 5 ml STK-MED ONCE 07/17/17 06:57 07/17/17 06:58 DC Lidocaine HCl (Xylocaine 2% Topical 30gm Tube) 1 fredi 1X ONCE 07/11/17 12:05 07/11/17 12:07 DC Lidocaine/ Epinephrine (Xylocaine 1%-Epi 1:100,000) 10 ml 1X ONCE 07/13/17 15:15 07/13/17 15:16 DC 07/13/17 15:13 10 ML Losartan Potassium (Cozaar) 50 mg DAILY 07/15/17 15:00 07/15/17 17:23 50 MG Magnesium Sulfate/ Dextrose 50 ml @ 25 mls/hr PRN DAILY PRN 07/10/17 10:15 Metoprolol Tartrate (Lopressor) 5 mg STK-MED ONCE 07/17/17 08:04 07/17/17 08:05 DC Midazolam HCl (Versed) 5 mg STK-MED ONCE 07/17/17 06:57 07/17/17 06:58 DC Morphine Sulfate 1 mg PRN Q10MIN PRN 07/17/17 07:00 07/18/17 06:59 Neostigmine Methylsulfate 5 mg STK-MED ONCE 07/17/17 09:23 07/17/17 09:24 DC Nicardipine HCl 50 mg/Sodium Chloride 270 ml @ 0 mls/hr CONT PRN 07/09/17 16:00 07/10/17 10:36 DC 07/09/17 17:26 25 MLS/HR Nitroglycerin (Nitroglycerin) 200 mcg 1X ONCE 07/13/17 09:30 07/13/17 09:33 DC 07/13/17 09:56 200 MCG Nitroglycerin/ Dextrose 250 ml @ As Directed STK-MED ONCE 07/17/17 06:57 07/17/17 06:58 DC Ondansetron HCl (Zofran) 4 mg STK-MED ONCE 07/17/17 06:57 07/17/17 06:58 DC Oxycodone/ Acetaminophen (Percocet 5/325) 1 tab PRN Q6HRS PRN 07/14/17 15:45 Phenylephrine HCl (Ford-Synephrine Inj) 10 mg STK-MED ONCE 07/17/17 06:57 07/17/17 06:58 DC Potassium Chloride 15 meq/ Sodium Bicarbonate 12.5 meq/Parenteral Electrolytes 520 ml @ 520 mls/hr 1X PERIOP ONCE 07/17/17 06:00 07/17/17 07:40 DC Potassium Chloride 70 meq/ Sodium Bicarbonate 12.5 meq/Lidocaine HCl 24 ml/Parenteral Electrolytes 571.5 ml @ 571.5 mls/ hr 1X PERIOP ONCE 07/17/17 06:00 07/17/17 07:40 DC Potassium Chloride (Klor-Con) 40 meq BIDWMEALS 07/10/17 11:30 07/16/17 23:00 DC 07/15/17 17:19 40 MEQ Prochlorperazine Edisylate (Compazine) 5 mg PACU PRN PRN 07/17/17 07:00 07/18/17 06:59 Propofol 20 ml @ As Directed STK-MED ONCE 07/17/17 06:57 07/17/17 06:58 DC Regadenoson (Lexiscan) 0.4 mg 1X ONCE 07/12/17 09:00 07/12/17 09:01 DC 07/12/17 09:37 0.4 MG Ringer's Solution 1,000 ml @ 0 mls/hr Q0M 07/17/17 07:00 07/17/17 18:59 Rocuronium [place] (Zemuron) 100 mg STK-MED ONCE 07/17/17 06:57 07/17/17 06:58 DC Sodium Chloride 1,000 ml @ 75 mls/hr [id number] 07/17/17 08:00 07/17/17 07:51 75 MLS/HR Sodium Chloride (Normal Saline Flush) 10 ml 1X PRN PRN 07/13/17 15:45 07/14/17 15:44 DC Sodium Cl/Sod Bicarb/Potass Cl/ PEG (Golytely) 4,000 ml 1X ONCE 07/10/17 18:45 07/10/17 18:46 UNV Spironolactone (Aldactone) 50 mg DAILY 07/11/17 10:30 07/16/17 23:00 DC 07/15/17 08:37 50 MG Sufentanil Citrate (Sufenta) 100 mcg STK-MED ONCE 07/17/17 06:57 07/17/17 06:58 DC Sulfur Hexafluoride Microspheres (Lumason) 25 mg 1X ONCE 07/17/17 10:15 07/17/17 10:20 DC Vancomycin HCl (Vanco) 10 gm STK-MED ONCE 07/17/17 07:35 07/17/17 07:36 DC Verapamil HCl (Verapamil) 2.5 mg 1X ONCE 07/13/17 09:30 07/13/17 09:33 DC 07/13/17 09:56 2.5 MG Vitamin D (Vitamin D3) 5,000 unit DAILY 07/11/17 10:30 07/16/17 23:00 DC 07/16/17 15:59 5,000 UNIT Lab Laboratory Tests Test 07/17/17 04:40 White Blood Count 10.6 x10^3/uL (4.0-11.0) Red Blood Count 4.85 x10^6/uL (3.50-5.40) Hemoglobin 14.2 g/dL (12.0-15.5) Hematocrit 42.6 % (36.0-47.0) Mean Corpuscular Volume 88 fL (79-100) Mean Corpuscular Hemoglobin 29 pg (25-35) Mean Corpuscular Hemoglobin Concent 33 g/dL (31-37) Red Cell Distribution Width 19.0 % (11.5-14.5) Platelet Count 229 x10^3/uL (140-400) Neutrophils (%) (Auto) 78 % (31-73) Lymphocytes (%) (Auto) 10 % (24-48) Monocytes (%) (Auto) 11 % (0-9) Eosinophils (%) (Auto) 1 % (0-3) Basophils (%) (Auto) 1 % (0-3) Neutrophils # (Auto) 8.3 x10^3uL (1.8-7.7) Lymphocytes # (Auto) 1.1 x10^3/uL (1.0-4.8) Monocytes # (Auto) 1.1 x10^3/uL (0.0-1.1) Eosinophils # (Auto) 0.1 x10^3/uL (0.0-0.7) Basophils # (Auto) 0.1 x10^3/uL (0.0-0.2) Sodium Level 135 mmol/L (136-145) Potassium Level 4.1 mmol/L (3.5-5.1) Chloride Level 98 mmol/L (98-107) Carbon Dioxide Level 28 mmol/L (21-32) Anion Gap 9 (6-14) Blood Urea Nitrogen 20 mg/dL (7-20) Creatinine 2.7 mg/dL (0.6-1.0) Estimated GFR (Cockcroft-Gault) 22.3 Glucose Level 114 mg/dL (70-99) Calcium Level 9.5 mg/dL (8.5-10.1) Phosphorus Level 4.4 mg/dL (2.6-4.7) Albumin 3.1 g/dL (3.4-5.0) LEONARDO TANNER MD Jul 17, 2017 11:54
[2017-07-17 12:00] VITALS: BP 165/82
--- NOTE | 2017-07-17 12:21 | CARD ---
APPROVED REPORT EXAM: Two-dimensional and M-mode echocardiogram with Doppler and color Doppler. INDICATION LV mass Echo Enhancing Agent Agent/Amount Used: Lumason 2mL Reason For Test : LV mass PROCEDURE After obtaining informed consent, patient underwent transesophageal echo in the operating room Type of Sedation : General Anesthesia Sedation was provided by anesthesiologist, see EMR for medications administered. Transesophageal probe was inserted and advanced into esophagus by Junior Marte MD. The KEVIN was performed without complications. Throughout the procedure, the blood pressure, pulse oximetry, cardiac rhythm, and rate were monitored . The patient tolerated the procedure without adverse effects. Recovery from conscious sedation was une ventful and vital signs were stable. LEFT VENTRICLE The left ventricle is normal size. There is moderate concentric left ventricular hypertrophy. Left ve ntricle systolic function is moderately impaired. The Ejection Fraction is 40%. There is moderate arina bal hypokinesis of the left ventricle. No left ventricle mass or thrombus noted on this study. RIGHT VENTRICLE The right ventricle is normal size. There is normal right ventricular wall thickness. The right ventr icular systolic function is normal. ATRIA The left atrium is severely dilated. The right atrium size is normal. The interatrial septum is intac t with no evidence for an atrial septal defect or patent foramen ovale as noted on 2-D or Doppler tiesha ging. AORTIC VALVE The aortic valve is mildly sclerotic. The aortic valve is trileaflet. Doppler and Color Flow revealed no significant aortic regurgitation. There is no significant aortic valvular stenosis. MITRAL VALVE Mitral annular calcification is mild. The mitral valve leaflets are thickened. There is no evidence o f mitral valve prolapse. There is no mitral valve stenosis. Doppler and Color Flow revealed no mitral valve regurgitation noted. TRICUSPID VALVE Doppler and Color Flow revealed mild tricuspid regurgitation. The pulmonary artery systolic pressure is estimated at 35 mmHg. There is mild pulmonary hypertension. PULMONIC VALVE The pulmonic valve is not well visualized but appears to open adequately. Doppler and Color Flow reve aled no pulmonic valvular regurgitation. There is no pulmonic valvular stenosis by spectral Doppler. GREAT VESSELS The aortic root is normal in size. The ascending aorta is normal in size. The pulmonary artery is nor mal. The IVC was not visualized. Critical Notification Critical Value: No <Conclusion> There is moderate concentric left ventricular hypertrophy. Left ventricle systolic function is moderately impaired. The Ejection Fraction is 40%. There is moderate global hypokinesis of the left ventricle. No left ventricle mass or thrombus noted on this study. The previously noted apical mass/thrombus is not visualized on this study.
--- NOTE | 2017-07-17 15:01 | PDOC ---
PROGRESS NOTES Chief Complaint Chief Complaint Acute hypoxic respiratory failure Hypertensive urgency LV mass ASSESSMENT AND PLAN: 1. L Ventricular mass/thrombus: resection planned for today, but on rpt echo in OR, mass had resolved. surgery aborted. 2. CHF exacerbation: symptomatically stable. 3. Hypertensive urgency: labile BP. no renal artery stenosis on US. cont on Norvasc, clonidine. hydralazine, cozaar , spironolactone and imdur 4. Renal failure: on HD to optimize prior to Surgery, incl uremic thrombasthenia 5. Anemia: combined iron deficiency and inflammatory (CHF) etiology. on IV iron 6. Hypokalemia: repleted. monitor. 7. Hypomagnesemia: replete PRN 8. Leukocytosis: mild, reactive. no infectious signs or sx. monitor 9. prophylaxis: heparin History of Present Illness History of Present Illness post anesthesia. no c/o Vitals Vitals Vital Signs Date Time Temp Pulse Resp B/P (MAP) Pulse Ox O2 Delivery O2 Flow Rate FiO2 07/17/17 11:34 84 16 146/70 94 Room Air 07/17/17 10:49 100.0 100.0 07/17/17 10:19 10 Physical Exam General: Alert, Oriented X3, Cooperative, No acute distress Heart: Regular rate Lungs: Clear Abdomen: Normal bowel sounds, Soft, No tenderness Extremities: No edema Skin: No significant lesion Labs LABS Laboratory Tests Test 07/17/17 04:40 White Blood Count 10.6 x10^3/uL (4.0-11.0) Red Blood Count 4.85 x10^6/uL (3.50-5.40) Hemoglobin 14.2 g/dL (12.0-15.5) Hematocrit 42.6 % (36.0-47.0) Mean Corpuscular Volume 88 fL (79-100) Mean Corpuscular Hemoglobin 29 pg (25-35) Mean Corpuscular Hemoglobin Concent 33 g/dL (31-37) Red Cell Distribution Width 19.0 % (11.5-14.5) Platelet Count 229 x10^3/uL (140-400) Neutrophils (%) (Auto) 78 % (31-73) Lymphocytes (%) (Auto) 10 % (24-48) Monocytes (%) (Auto) 11 % (0-9) Eosinophils (%) (Auto) 1 % (0-3) Basophils (%) (Auto) 1 % (0-3) Neutrophils # (Auto) 8.3 x10^3uL (1.8-7.7) Lymphocytes # (Auto) 1.1 x10^3/uL (1.0-4.8) Monocytes # (Auto) 1.1 x10^3/uL (0.0-1.1) Eosinophils # (Auto) 0.1 x10^3/uL (0.0-0.7) Basophils # (Auto) 0.1 x10^3/uL (0.0-0.2) Sodium Level 135 mmol/L (136-145) Potassium Level 4.1 mmol/L (3.5-5.1) Chloride Level 98 mmol/L (98-107) Carbon Dioxide Level 28 mmol/L (21-32) Anion Gap 9 (6-14) Blood Urea Nitrogen 20 mg/dL (7-20) Creatinine 2.7 mg/dL (0.6-1.0) Estimated GFR (Cockcroft-Gault) 22.3 Glucose Level 114 mg/dL (70-99) Calcium Level 9.5 mg/dL (8.5-10.1) Phosphorus Level 4.4 mg/dL (2.6-4.7) Albumin 3.1 g/dL (3.4-5.0) JOEY OSUNA MD Jul 17, 2017 15:00
[2017-07-17 16:00] VITALS: BP 143/70
[2017-07-17] MEDS: ATORVASTATIN CALCIUM 20 MG TABLET PO SCH (20:20)
[2017-07-17 22:30] VITALS: BP 199/93
[2017-07-17] MEDS: hydrALAZINE 20 MG/ML VIAL. IVP PRN (22:37)
[2017-07-17 22:45] VITALS: BP 172/75
[2017-07-18] VITALS (7 sets, daily range): BP systolic 110–198; BP diastolic 56–109
[2017-07-18] MEDS: hydrALAZINE 20 MG/ML VIAL. IVP PRN (02:43)
[2017-07-18] MEDS: IV NORMAL SALINE 1000ML BAG 1,000 ML IV SCH (02:47)
[2017-07-18 05:27] LABS: BASO # 0.1 x10^3/uL (0.0-0.2); BASO % 1 % (0-3); EOS % 0 % (0-3); HEMATOCRIT 37.1 % (36.0-47.0); HEMOGLOBIN 12.2 g/dL (12.0-15.5); LYMPH # 0.9 x10^3/uL (1.0-4.8); LYMPH % 7 % (24-48); MEAN CORPUSCULAR HEMOGLOBIN 29 pg (25-35); MEAN CORPUSCULAR HGB CONC 33 g/dL (31-37); MEAN CORPUSCULAR VOLUME 89 fL (79-100); MONO % 10 % (0-9); NEUT % 82 % (31-73); PLATELET COUNT 226 x10^3/uL (140-400); RED BLOOD COUNT 4.17 x10^6/uL (3.50-5.40); RED CELL DISTRIBUTION WIDTH 19.1 % (11.5-14.5)
[2017-07-18 05:55] LABS: CREATININE 3.6 mg/dL (0.6-1.0); POTASSIUM 4.4 mmol/L (3.5-5.1)
[2017-07-18] MEDS ORDERED: LABETALOL 20 MG/4 ML DISP.SYRIN. IVP PRN (08:00)
[2017-07-18] MEDS: LOSARTAN POTASSIUM 50 MG TABLET. PO SCH (08:48)
[2017-07-18] MEDS: cloNIDine TTS-2 1 PATCH PATCH TD SCH (08:49)
[2017-07-18] MEDS: IRON SUCROSE COMPLEX 200 MG in IV NORMAL SALINE 100ML 100 ML IV SCH (08:54)
[2017-07-18] MEDS ORDERED: IV NORMAL SALINE 1000ML BAG 1,000 ML IV PRN ×2 (09:23)
[2017-07-18] MEDS ORDERED: diphenhydrAMINE 50 MG/ML VIAL IV PRN ×2 (09:30)
[2017-07-18] MEDS ORDERED: DIALYSIS PATIENT. MC PRN (09:30)
--- NOTE | 2017-07-18 10:17 | PDOC ---
PROGRESS NOTES Chief Complaint Chief Complaint Acute hypoxic respiratory failure Hypertensive urgency LV mass ASSESSMENT AND PLAN: 1. L Ventricular mass/thrombus: resection plannedbut on rpt echo in OR, mass had resolved. surgery aborted. 2. CHF exacerbation: symptomatically stable. 3. Hypertensive urgency: labile BP. no renal artery stenosis on US. 4. ESRD new HD 5. Anemia: of CKD History of Present Illness History of Present Illness TCVS sx aborted bec no LV mass on re eval Transferred out of ICU today PT hemodynamically stable, no complaints BP VERY high On clonidine patch, losartan Will add norvasc - prev notes was also on imdur? I dont see that OP HD supposed to be set up - new HD pt Previously no meds at home, no PCP HAs coverage Currently getting IV venofer PLAN; Simon Susana - OP HD to set up Add norvasc Needs more BP control Start ferrous sulfate if not yet on PT/OT Simon Preciado [employer] home pauly? once BP better and outpt HD has been set up Vitals Vitals Vital Signs Date Time Temp Pulse Resp B/P (MAP) Pulse Ox O2 Delivery O2 Flow Rate FiO2 07/18/17 08:48 84 198/109 07/18/17 08:00 Room Air 07/18/17 07:00 98.1 20 98 98.1 07/17/17 10:19 10 Physical Exam General: Alert, Oriented X3, Cooperative, No acute distress Heart: Regular rate Lungs: Clear Abdomen: Normal bowel sounds, Soft, No tenderness Extremities: No edema Skin: No significant lesion Labs LABS Laboratory Tests Test 07/18/17 04:45 White Blood Count 12.0 x10^3/uL (4.0-11.0) Red Blood Count 4.17 x10^6/uL (3.50-5.40) Hemoglobin 12.2 g/dL (12.0-15.5) Hematocrit 37.1 % (36.0-47.0) Mean Corpuscular Volume 89 fL (79-100) Mean Corpuscular Hemoglobin 29 pg (25-35) Mean Corpuscular Hemoglobin Concent 33 g/dL (31-37) Red Cell Distribution Width 19.1 % (11.5-14.5) Platelet Count 226 x10^3/uL (140-400) Neutrophils (%) (Auto) 82 % (31-73) Lymphocytes (%) (Auto) 7 % (24-48) Monocytes (%) (Auto) 10 % (0-9) Eosinophils (%) (Auto) 0 % (0-3) Basophils (%) (Auto) 1 % (0-3) Neutrophils # (Auto) 9.8 x10^3uL (1.8-7.7) Lymphocytes # (Auto) 0.9 x10^3/uL (1.0-4.8) Monocytes # (Auto) 1.2 x10^3/uL (0.0-1.1) Eosinophils # (Auto) 0.0 x10^3/uL (0.0-0.7) Basophils # (Auto) 0.1 x10^3/uL (0.0-0.2) Sodium Level 133 mmol/L (136-145) Potassium Level 4.4 mmol/L (3.5-5.1) Chloride Level 98 mmol/L (98-107) Carbon Dioxide Level 25 mmol/L (21-32) Anion Gap 10 (6-14) Blood Urea Nitrogen 32 mg/dL (7-20) Creatinine 3.6 mg/dL (0.6-1.0) Estimated GFR (Cockcroft-Gault) 16.0 Glucose Level 156 mg/dL (70-99) Calcium Level 9.0 mg/dL (8.5-10.1) Review of Systems Review of Systems no complaints Comment Review of Relevant I have reviewed the following items yran (where applicable) has been applied. Labs Laboratory Tests Test 07/17/17 04:40 07/18/17 04:45 White Blood Count 10.6 x10^3/uL (4.0-11.0) 12.0 x10^3/uL (4.0-11.0) Red Blood Count 4.85 x10^6/uL (3.50-5.40) 4.17 x10^6/uL (3.50-5.40) Hemoglobin 14.2 g/dL (12.0-15.5) 12.2 g/dL (12.0-15.5) Hematocrit 42.6 % (36.0-47.0) 37.1 % (36.0-47.0) Mean Corpuscular Volume 88 fL (79-100) 89 fL (79-100) Mean Corpuscular Hemoglobin 29 pg (25-35) 29 pg (25-35) Mean Corpuscular Hemoglobin Concent 33 g/dL (31-37) 33 g/dL (31-37) Red Cell Distribution Width 19.0 % (11.5-14.5) 19.1 % (11.5-14.5) Platelet Count 229 x10^3/uL (140-400) 226 x10^3/uL (140-400) Neutrophils (%) (Auto) 78 % (31-73) 82 % (31-73) Lymphocytes (%) (Auto) 10 % (24-48) 7 % (24-48) Monocytes (%) (Auto) 11 % (0-9) 10 % (0-9) Eosinophils (%) (Auto) 1 % (0-3) 0 % (0-3) Basophils (%) (Auto) 1 % (0-3) 1 % (0-3) Neutrophils # (Auto) 8.3 x10^3uL (1.8-7.7) 9.8 x10^3uL (1.8-7.7) Lymphocytes # (Auto) 1.1 x10^3/uL (1.0-4.8) 0.9 x10^3/uL (1.0-4.8) Monocytes # (Auto) 1.1 x10^3/uL (0.0-1.1) 1.2 x10^3/uL (0.0-1.1) Eosinophils # (Auto) 0.1 x10^3/uL (0.0-0.7) 0.0 x10^3/uL (0.0-0.7) Basophils # (Auto) 0.1 x10^3/uL (0.0-0.2) 0.1 x10^3/uL (0.0-0.2) Sodium Level 135 mmol/L (136-145) 133 mmol/L (136-145) Potassium Level 4.1 mmol/L (3.5-5.1) 4.4 mmol/L (3.5-5.1) Chloride Level 98 mmol/L (98-107) 98 mmol/L (98-107) Carbon Dioxide Level 28 mmol/L (21-32) 25 mmol/L (21-32) Anion Gap 9 (6-14) 10 (6-14) Blood Urea Nitrogen 20 mg/dL (7-20) 32 mg/dL (7-20) Creatinine 2.7 mg/dL (0.6-1.0) 3.6 mg/dL (0.6-1.0) Estimated GFR (Cockcroft-Gault) 22.3 16.0 Glucose Level 114 mg/dL (70-99) 156 mg/dL (70-99) Calcium Level 9.5 mg/dL (8.5-10.1) 9.0 mg/dL (8.5-10.1) Phosphorus Level 4.4 mg/dL (2.6-4.7) Albumin 3.1 g/dL (3.4-5.0) Laboratory Tests Test 07/18/17 04:45 White Blood Count 12.0 x10^3/uL (4.0-11.0) Red Blood Count 4.17 x10^6/uL (3.50-5.40) Hemoglobin 12.2 g/dL (12.0-15.5) Hematocrit 37.1 % (36.0-47.0) Mean Corpuscular Volume 89 fL (79-100) Mean Corpuscular Hemoglobin 29 pg (25-35) Mean Corpuscular Hemoglobin Concent 33 g/dL (31-37) Red Cell Distribution Width 19.1 % (11.5-14.5) Platelet Count 226 x10^3/uL (140-400) Neutrophils (%) (Auto) 82 % (31-73) Lymphocytes (%) (Auto) 7 % (24-48) Monocytes (%) (Auto) 10 % (0-9) Eosinophils (%) (Auto) 0 % (0-3) Basophils (%) (Auto) 1 % (0-3) Neutrophils # (Auto) 9.8 x10^3uL (1.8-7.7) Lymphocytes # (Auto) 0.9 x10^3/uL (1.0-4.8) Monocytes # (Auto) 1.2 x10^3/uL (0.0-1.1) Eosinophils # (Auto) 0.0 x10^3/uL (0.0-0.7) Basophils # (Auto) 0.1 x10^3/uL (0.0-0.2) Sodium Level 133 mmol/L (136-145) Potassium Level 4.4 mmol/L (3.5-5.1) Chloride Level 98 mmol/L (98-107) Carbon Dioxide Level 25 mmol/L (21-32) Anion Gap 10 (6-14) Blood Urea Nitrogen 32 mg/dL (7-20) Creatinine 3.6 mg/dL (0.6-1.0) Estimated GFR (Cockcroft-Gault) 16.0 Glucose Level 156 mg/dL (70-99) Calcium Level 9.0 mg/dL (8.5-10.1) Microbiology 07/10/17 Urine Culture - Final, Complete 07/10/17 Urine Culture Result 1 (DEEPTHI) - Final, Complete Medications Current Medications Nicardipine HCl 50 mg/Sodium Chloride 270 ml @ 0 mls/hr CONT PRN IV SEE I/O RECORD Last administered on 07/09/17 17:26; Start 07/09/17 at 16:00; Stop 07/10 at 10:36; Status DC Levofloxacin/ Dextrose 100 ml @ 100 mls/hr Q24H IV Last administered on 19:44; Start 07/09/17 at 19:00; Stop 07/10/17 at 17:06; Status DC Magnesium Sulfate/ Dextrose 50 ml @ 25 mls/hr PRN DAILY PRN IV for Mag < 1.7 on am labs; Start 07/10/17 at 10:15 Metoprolol Tartrate (Lopressor) 12.5 mg BID PO ; Start 07/10/17 at 10:15; Stop 07/10/17 at 11:13; Status DC Aspirin (Children'S Aspirin) 81 mg DAILYWBKFT PO Last administered on 10:32; Start 07/10/17 at 10:15; Stop 07/13/17 at 14:04; Status DC Amlodipine Besylate (Norvasc) 10 mg DAILY PO Last administered on 07/15/17 08: 36; Start 07/10/17 at 10:45; Stop 07/16/17 at 22:00; Status DC Furosemide (Lasix) 40 mg BID92 IVP Last administered on 07/11/17 08:40; Start 07/10/17 at 11:00; Stop 07/11/17 at 10:00; Status DC Potassium Chloride (Klor-Con) 40 meq BIDWMEALS PO Last administered on 17:19; Start 07/10/17 at 11:30; Stop 07/16/17 at 23:00; Status DC Heparin Sodium (Porcine) (Heparin Sq) 5,000 unit Q8HRS SQ Last administered on 07/16/17 16:00; Start 07/10/17 at 14:00; Stop 07/16/17 at 23:00; Status DC Carvedilol (Coreg) 6.25 mg BIDWMEALS PO Last administered on 07/11/17 08:39; Start 07/10/17 at 17:00; Stop 07/11/17 at 09:35; Status DC Hydralazine HCl (Apresoline) 10 mg PRN Q4HRS PRN IVP ELEVATED BP, SEE COMMENTS Last administered on 07/18/17 02:43; Start 07/10/17 at 10:45 Aspirin (Ecotrin) 81 mg DAILYWBKFT PO ; Start 07/11/17 at 08:00; Status UNV Atorvastatin Calcium (Lipitor) 20 mg QHS PO Last administered on 07/17/17 20:20 ; Start 07/10/17 at 21:00 Isosorbide Mononitrate (Imdur) 30 mg DAILY PO Last administered on 07/11/17 08 :38; Start 07/10/17 at 15:30; Stop 07/12/17 at 10:16; Status DC Levofloxacin/ Dextrose 50 ml @ 50 mls/hr Q24H IV Last administered on 21:27; Start 07/10/17 at 19:00; Stop 07/13/17 at 16:00; Status DC Fentanyl Citrate (Fentanyl 2ml Vial) 25 mcg PRN Q5MIN PRN IV MILD PAIN; Start 07/11/17 at 07:00; Stop 07/12/17 at 06:59; Status DC Fentanyl Citrate (Fentanyl 2ml Vial) 50 mcg PRN Q5MIN PRN IV MODERATE PAIN; Start 07/11/17 at 07:00; Stop 07/12/17 at 06:59; Status DC Morphine Sulfate 1 mg PRN Q10MIN PRN IV SEVERE PAIN; Start 07/11/17 at 07:00; Stop 07/12/17 at 06:59; Status DC Ringer's Solution 1,000 ml @ 30 mls/hr Q24H IV ; Start 07/11/17 at 07:00; Stop 07/11/17 at 18:59; Status DC Lidocaine HCl 2 ml PRN 1X PRN ID PRIOR TO IV START; Start 07/11/17 at 07:00; Stop 07/12/17 at 06:59; Status DC Hydromorphone HCl (Dilaudid) 0.5 mg PRN Q10MIN PRN IV SEV PAIN, Second choice; Start 07/11/17 at 07:00; Stop 07/12/17 at 06:59; Status DC Prochlorperazine Edisylate (Compazine) 5 mg PACU PRN PRN IV NAUSEA, MRX1; Start 07/11/17 at 07:00; Stop 07/12/17 at 06:59; Status DC Sodium Cl/Sod Bicarb/Potass Cl/ PEG (Golytely) 4,000 ml 1X ONCE PO ; Start at 18:45; Stop 07/10/17 at 18:46; Status UNV Labetalol HCl (Trandate) 200 mg BID PO Last administered on 07/11/17 21:12; Start 07/11/17 at 21:00; Stop 07/12/17 at 07:56; Status DC Iron Sucrose 200 mg/Sodium Chloride 110 ml @ 55 mls/hr 3X/WEEK IV ; Start 07/11 at 09:30; Stop 07/11/17 at 09:58; Status DC Iron Sucrose 200 mg/Sodium Chloride 110 ml @ 55 mls/hr 3X/WEEK IV Last administered on 07/18/17 08:54; Start 07/11/17 at 10:30; Stop 07/20/17 at 10:59 Furosemide (Lasix) 80 mg BID92 IVP Last administered on 07/15/17 14:40; Start 07/11/17 at 14:00; Stop 07/16/17 at 22:00; Status DC Vitamin D (Vitamin D3) 5,000 unit DAILY PO Last administered on 07/16/17 15:59 ; Start 07/11/17 at 10:30; Stop 07/16/17 at 23:00; Status DC Spironolactone (Aldactone) 50 mg DAILY PO Last administered on 07/15/17 08:37; Start 07/11/17 at 10:30; Stop 07/16/17 at 23:00; Status DC Clonidine HCl (Catapres Tts-2) 1 patch WEEKLY TD Last administered on 07/18/17 08:49; Start 07/11/17 at 10:30 Clonidine HCl (Catapres) 0.2 mg 1X ONCE PO Last administered on 07/11/17 10: 32; Start 07/11/17 at 10:30; Stop 07/11/17 at 10:31; Status DC Lidocaine HCl (Lidocaine Pf 2% Vial) 5 ml STK-MED ONCE .ROUTE ; Start 07/11/17 at 11:14; Stop 07/11/17 at 11:15; Status DC Propofol 40 ml @ As Directed STK-MED ONCE IV ; Start 07/11/17 at 11:14; Stop at 11:15; Status DC Sulfur Hexafluoride Microspheres (Lumason) 25 mg STK-MED ONCE IVP ; Start at 11:39; Stop 07/11/17 at 11:40; Status DC Benzocaine (Hurricaine One) 1 spray STK-MED ONCE .ROUTE ; Start 07/11/17 at 12: 01; Stop 07/11/17 at 12:02; Status DC Lidocaine HCl (Xylocaine 2% Topical 30gm Tube) 30 fredi STK-MED ONCE TP ; Start at 12:01; Stop 07/11/17 at 12:02; Status DC Benzocaine (Hurricaine One) 2 spray 1X ONCE MM ; Start 07/11/17 at 12:05; Stop 07/11/17 at 12:07; Status DC Lidocaine HCl (Xylocaine 2% Topical 30gm Tube) 1 fredi 1X ONCE TP ; Start at 12:05; Stop 07/11/17 at 12:07; Status DC Sulfur Hexafluoride Microspheres (Lumason) 25 mg 1X ONCE IVP Last administered on 07/11/17 14:00; Start 07/11/17 at 14:00; Stop 07/11/17 at 14:01 ; Status DC Hydralazine HCl (Apresoline) 50 mg TID PO Last administered on 07/16/17 20:31; Start 07/12/17 at 09:00; Stop 07/16/17 at 23:00; Status DC Regadenoson (Lexiscan) 0.4 mg 1X ONCE IV Last administered on 07/12/17 09:37 ; Start 07/12/17 at 09:00; Stop 07/12/17 at 09:01; Status DC Isosorbide Mononitrate (Imdur) 60 mg DAILY PO Last administered on 07/15/17 08: 37; Start 07/13/17 at 09:00; Stop 07/16/17 at 23:00; Status DC Isosorbide Mononitrate (Imdur) 30 mg 1X ONCE PO Last administered on 10:35; Start 07/12/17 at 10:30; Stop 07/12/17 at 10:31; Status DC Iohexol (Omnipaque 350 Mg/ml) 100 ml STK-MED ONCE .ROUTE ; Start 07/13/17 at 08: 54; Stop 07/13/17 at 08:55; Status DC Heparin Sodium/ Sodium Chloride 500 ml @ As Directed STK-MED ONCE .ROUTE ; Start 07/13/17 at 08:55; Stop 07/13/17 at 08:56; Status DC Lidocaine HCl 20 ml STK-MED ONCE .ROUTE ; Start 07/13/17 at 08:55; Stop 07/13/17 at 08:56; Status DC Iodixanol (Visipaque 320) 100 ml STK-MED ONCE .ROUTE ; Start 07/13/17 at 08:55; Stop 07/13/17 at 08:56; Status DC Verapamil HCl (Verapamil) 5 mg STK-MED ONCE .ROUTE ; Start 07/13/17 at 09:05; Stop 07/13/17 at 09:06; Status DC Heparin Sodium (Porcine) (Heparin Sodium) 10,000 unit STK-MED ONCE .ROUTE ; Start 07/13/17 at 09:05; Stop 07/13/17 at 09:06; Status DC Fentanyl Citrate (Fentanyl 2ml Vial) 100 mcg STK-MED ONCE .ROUTE ; Start at 09:05; Stop 07/13/17 at 09:06; Status DC Midazolam HCl (Versed) 5 mg STK-MED ONCE .ROUTE ; Start 07/13/17 at 09:06; Stop 07/13/17 at 09:07; Status DC Nitroglycerin (Nitroglycerin) 200 mcg STK-MED ONCE .ROUTE ; Start 07/13/17 at 09: 07; Stop 07/13/17 at 09:08; Status DC Nitroglycerin (Nitroglycerin) 200 mcg 1X ONCE IART Last administered on 09:56; Start 07/13/17 at 09:30; Stop 07/13/17 at 09:33; Status DC Verapamil HCl (Verapamil) 2.5 mg 1X ONCE IART Last administered on 07/13/17 09 :56; Start 07/13/17 at 09:30; Stop 07/13/17 at 09:33; Status DC Heparin Sodium (Porcine) (Heparin Sodium) 2,500 unit 1X ONCE IART Last administered on 07/13/17 09:56; Start 07/13/17 at 09:30; Stop 07/13/17 at 09:33; Status DC Heparin Sodium/ Sodium Chloride 1,000 unit 1X ONCE IART Last administered on 09:53; Start 07/13/17 at 09:30; Stop 07/13/17 at 09:33; Status DC Midazolam HCl (Versed) 5 mg 1X ONCE IV Last administered on 07/13/17 09:54; Start 07/13/17 at 09:30; Stop 07/13/17 at 09:33; Status DC Fentanyl Citrate (Fentanyl 2ml Vial) 100 mcg 1X ONCE IV Last administered on 09:55; Start 07/13/17 at 09:30; Stop 07/13/17 at 09:33; Status DC Iodixanol (Visipaque 320) 100 ml 1X ONCE IART Last administered on 07/13/17 09 :53; Start 07/13/17 at 09:30; Stop 07/13/17 at 09:33; Status DC Lidocaine HCl 20 ml 1X ONCE IJ Last administered on 07/13/17 09:53; Start 07/13 at 09:30; Stop 07/13/17 at 09:33; Status DC Info (Do NOT chart on this entry -- for MONITORING) 1 each PRN DAILY PRN MC SEE COMMENTS; Start 07/13/17 at 09:45; Stop 07/15/17 at 09:44; Status DC Cefazolin Sodium 50 ml @ 100 mls/hr 1X ONCE IV ; Start 07/17/17 at 06:00; Stop 07/17/17 at 06:29; Status DC Heparin Sodium (Porcine) (Heparin Sodium) 10,000 unit STK-MED ONCE .ROUTE ; Start 07/13/17 at 14:25; Stop 07/13/17 at 14:26; Status DC Lidocaine/ Epinephrine (Xylocaine 1%-Epi 1:100,000) 20 ml STK-MED ONCE .ROUTE ; Start 07/13/17 at 14:25; Stop 07/13/17 at 14:26; Status DC Heparin Sodium/ Sodium Chloride 500 ml @ As Directed STK-MED ONCE .ROUTE ; Start 07/13/17 at 14:25; Stop 07/13/17 at 14:26; Status DC Midazolam HCl (Versed) 2 mg STK-MED ONCE .ROUTE ; Start 07/13/17 at 14:38; Stop 07/13/17 at 14:39; Status DC Fentanyl Citrate (Fentanyl 2ml Vial) 100 mcg STK-MED ONCE .ROUTE ; Start at 14:39; Stop 07/13/17 at 14:40; Status DC Cefazolin Sodium 50 ml @ As Directed STK-MED ONCE IV ; Start 07/13/17 at 14:39; Stop 07/13/17 at 14:40; Status DC Heparin Sodium/ Sodium Chloride 1,000 unit 1X ONCE IART Last administered on 15:13; Start 07/13/17 at 15:15; Stop 07/13/17 at 15:16; Status DC Midazolam HCl (Versed) 1 mg 1X ONCE IV Last administered on 07/13/17 15:14; Start 07/13/17 at 15:15; Stop 07/13/17 at 15:16; Status DC Fentanyl Citrate (Fentanyl 2ml Vial) 50 mcg 1X ONCE IV Last administered on 15:14; Start 07/13/17 at 15:15; Stop 07/13/17 at 15:16; Status DC Lidocaine/ Epinephrine (Xylocaine 1%-Epi 1:100,000) 10 ml 1X ONCE IJ Last administered on 9/1/17at 15:13; Start 07/13/17 at 15:15; Stop 07/13/17 at 15:16; Status DC Cefazolin Sodium 50 ml @ 100 mls/hr 1X ONCE IV Last administered on 07/13/17 15:13; Start 07/13/17 at 15:15; Stop 07/13/17 at 15:44; Status DC Heparin Sodium (Porcine) (Heparin Sodium) 3,800 unit 1X ONCE INT CAT Last administered on 07/13/17 15:14; Start 07/13/17 at 15:15; Stop 07/13/17 at 15:16; Status DC Levofloxacin (Levaquin) 250 mg HS PO Last administered on 07/13/17 21:22; Start 07/13/17 at 21:00; Stop 07/14/17 at 11:58; Status DC Sodium Chloride 1,000 ml @ 1,000 mls/hr Q1H PRN IV hypotension; Start 07/13/17 at 15:39; Stop 07/13/17 at 21:38; Status DC Diphenhydramine HCl (Benadryl) 25 mg 1X PRN PRN IV ITCHING; Start 07/13/17 at 15 :45; Stop 07/14/17 at 15:44; Status DC Diphenhydramine HCl (Benadryl) 25 mg 1X PRN PRN IV ITCHING; Start 07/13/17 at 15 :45; Stop 07/14/17 at 15:44; Status DC Sodium Chloride (Normal Saline Flush) 10 ml 1X PRN PRN IV AP catheter pack; Start 07/13/17 at 15:45; Stop 07/14/17 at 15:44; Status DC Sodium Chloride (Normal Saline Flush) 10 ml 1X PRN PRN IV [employer] catheter pack; Start 07/13/17 at 15:45; Stop 07/14/17 at 15:44; Status DC Info (PHARMACY MONITORING -- do not chart) 1 each PRN DAILY PRN MC SEE COMMENTS ; Start 07/13/17 at 15:45 Sodium Chloride 1,000 ml @ 1,000 mls/hr Q1H PRN IV hypotension; Start 07/14/17 at 14:07; Stop 07/14/17 at 20:06; Status DC Sodium Chloride 1,000 ml @ 400 mls/hr Q2H30M PRN IV PATENCY; Start 07/14/17 at 14:07; Stop 07/15/17 at 02:06; Status DC Info (PHARMACY MONITORING -- do not chart) 1 each PRN DAILY PRN MC SEE COMMENTS ; Start 07/14/17 at 14:15; Status UNV Info (PHARMACY MONITORING -- do not chart) 1 each PRN DAILY PRN MC SEE COMMENTS ; Start 07/14/17 at 14:15; Status UNV Acetaminophen (Tylenol) 650 mg PRN Q6HRS PRN PO mild pain Last administered on 07/14/17t 15:54; Start 07/14/17 at 15:45 Oxycodone/ Acetaminophen (Percocet 5/325) 1 tab PRN Q6HRS PRN PO moderate - severe pain; Start 07/14/17 at 15:45 Losartan Potassium (Cozaar) 50 mg DAILY PO Last administered on 07/18/17t 08:48 ; Start 07/15/17 at 15:00 Sodium Chloride 1,000 ml @ 1,000 mls/hr Q1H PRN IV hypotension; Start 07/16/17 at 07:17; Stop 07/16/17 at 13:16; Status DC Ondansetron HCl (Zofran) 4 mg PRN Q6HRS PRN IV NAUSEA/VOMITING; Start 07/17/17 at 07:00; Stop 07/18/17 at 06:59; Status DC Fentanyl Citrate (Fentanyl 2ml Vial) 25 mcg PRN Q5MIN PRN IV MILD PAIN; Start 07/17/17 at 07:00; Stop 07/18/17 at 06:59; Status DC Fentanyl Citrate (Fentanyl 2ml Vial) 50 mcg PRN Q5MIN PRN IV MODERATE PAIN; Start 07/17/17 at 07:00; Stop 07/18/17 at 06:59; Status DC Morphine Sulfate 1 mg PRN Q10MIN PRN IV SEVERE PAIN; Start 07/17/17 at 07:00; Stop 07/18/17 at 06:59; Status DC Ringer's Solution 1,000 ml @ 0 mls/hr Q0M IV ; Start 07/17/17 at 07:00; Stop 07/17/17 at 18:59; Status DC Lidocaine HCl 2 ml PRN 1X PRN ID PRIOR TO IV START; Start 07/17/17 at 07:00; Stop 07/18/17 at 06:59; Status DC Hydromorphone HCl (Dilaudid) 0.5 mg PRN Q10MIN PRN IV SEV PAIN, Second choice; Start 07/17/17 at 07:00; Stop 07/18/17 at 06:59; Status DC Prochlorperazine Edisylate (Compazine) 5 mg PACU PRN PRN IV NAUSEA, MRX1; Start 07/17/17 at 07:00; Stop 07/18/17 at 06:59; Status DC Dexamethasone Sodium Phosphate (Decadron) 20 mg STK-MED ONCE .ROUTE ; Start 07/17 at 06:57; Stop 07/17/17 at 06:58; Status DC Etomidate (Amidate) 20 mg STK-MED ONCE IV ; Start 07/17/17 at 06:57; Stop at 06:58; Status DC Ondansetron HCl (Zofran) 4 mg STK-MED ONCE .ROUTE ; Start 07/17/17 at 06:57; Stop 07/17/17 at 06:58; Status DC Phenylephrine HCl (Ford-Synephrine Inj) 10 mg STK-MED ONCE .ROUTE ; Start at 06:57; Stop 07/17/17 at 06:58; Status DC Propofol 20 ml @ As Directed STK-MED ONCE IV ; Start 07/17/17 at 06:57; Stop 07/17 at 06:58; Status DC Lidocaine HCl (Lidocaine Pf 2% Vial) 5 ml STK-MED ONCE .ROUTE ; Start 07/17/17 at 06:57; Stop 07/17/17 at 06:58; Status DC Aminocaproic Acid (Amicar) 5,000 mg STK-MED ONCE IV ; Start 07/17/17 at 06:57; Stop 07/17/17 at 06:58; Status DC Nitroglycerin/ Dextrose 250 ml @ As Directed STK-MED ONCE IV ; Start 07/17/17 at 06:57; Stop 07/17/17 at 06:58; Status DC Midazolam HCl (Versed) 5 mg STK-MED ONCE .ROUTE ; Start 07/17/17 at 06:57; Stop 07/17/17 at 06:58; Status DC Epinephrine HCl (Adrenalin) 1 mg STK-MED ONCE .ROUTE ; Start 07/17/17 at 06:57; Stop 07/17/17 at 06:58; Status DC Rocuronium [place] (Zemuron) 100 mg STK-MED ONCE .ROUTE ; Start 07/17/17 at 06:57 ; Stop 07/17/17 at 06:58; Status DC Sufentanil Citrate (Sufenta) 100 mcg STK-MED ONCE .ROUTE ; Start 07/17/17 at 06: 57; Stop 07/17/17 at 06:58; Status DC Heparin Sodium (Porcine) 30,000 unit STK-MED ONCE .ROUTE ; Start 07/17/17 at 06: 58; Stop 07/17/17 at 06:59; Status DC Cellulose 1 each STK-MED ONCE .ROUTE ; Start 07/17/17 at 07:35; Stop 07/17/17 at 07:36; Status DC Vancomycin HCl (Vanco) 10 gm STK-MED ONCE .ROUTE ; Start 07/17/17 at 07:35; Stop 07/17/17 at 07:36; Status DC Potassium Chloride 70 meq/ Sodium Bicarbonate 12.5 meq/Lidocaine HCl 24 ml/ Parenteral Electrolytes 571.5 ml @ 571.5 mls/ hr 1X PERIOP ONCE IRR ; Start at 06:00; Stop 07/17/17 at 07:40; Status DC Potassium Chloride 15 meq/ Sodium Bicarbonate 12.5 meq/Parenteral Electrolytes 520 ml @ 520 mls/hr 1X PERIOP ONCE IRR ; Start 07/17/17 at 06:00; Stop 07/17/17 at 07:40; Status DC Cefazolin Sodium 1 gm/Sodium Chloride 500 ml @ 500 mls/hr 1X PERIOP ONCE IRR ; Start 07/17/17 at 06:00; Stop 07/17/17 at 07:40; Status DC Sodium Chloride 1,000 ml @ 75 mls/hr [id number] IV Last administered on 07/18/17t 02:47; Start 07/17/17 at 08:00 Metoprolol Tartrate (Lopressor) 5 mg STK-MED ONCE .ROUTE ; Start 07/17/17 at 08: 04; Stop 07/17/17 at 08:05; Status DC Sulfur Hexafluoride Microspheres (Lumason) 25 mg STK-MED ONCE IVP ; Start at 09:02; Stop 07/17/17 at 09:03; Status DC Glycopyrrolate (Robinul) 1 mg STK-MED ONCE .ROUTE ; Start 07/17/17 at 09:22; Stop 07/17/17 at 09:23; Status DC Neostigmine Methylsulfate 5 mg STK-MED ONCE .ROUTE ; Start 07/17/17 at 09:23; Stop 07/17/17 at 09:24; Status DC Hydralazine HCl (Apresoline) 20 mg STK-MED ONCE .ROUTE ; Start 07/17/17 at 10:01 ; Stop 07/17/17 at 10:02; Status DC Sulfur Hexafluoride Microspheres (Lumason) 25 mg 1X ONCE IVP Last administered on 07/17/17t 10:18; Start 07/17/17 at 10:15; Stop 07/17/17 at 10:20; Status DC Sulfur Hexafluoride Microspheres (Lumason) 25 mg 1X ONCE IVP ; Start 07/17/17 at 10:15; Stop 07/17/17 at 10:20; Status DC Isoflurane (Isoflurane) 90 ml STK-MED ONCE IH ; Start 07/17/17 at 10:24; Stop 07/17/17 at 10:25; Status DC Labetalol HCl (Normodyne) 20 mg PRN Q2HR PRN IVP HYPERTENSION, SEE COMMENTS; Start 07/18/17 at 08:00 Sodium Chloride 1,000 ml @ 1,000 mls/hr Q1H PRN IV hypotension; Start 07/18/17 at 09:23; Stop 07/18/17 at 15:22 Diphenhydramine HCl (Benadryl) 25 mg 1X PRN PRN IV ITCHING; Start 07/18/17 at 09 :30; Stop 07/19/17 at 09:29 Diphenhydramine HCl (Benadryl) 25 mg 1X PRN PRN IV ITCHING; Start 07/18/17 at 09 :30; Stop 07/19/17 at 09:29 Sodium Chloride 1,000 ml @ 400 mls/hr Q2H30M PRN IV PATENCY; Start 07/18/17 at 09:23; Stop 07/18/17 at 21:22 Info (PHARMACY MONITORING -- do not chart) 1 each PRN DAILY PRN MC SEE COMMENTS ; Start 07/18/17 at 09:30 Active Scripts Active Reported No Known Medications Prior To Admisstion (Info) Each 1 Each MC Vitals/I & O Vital Sign - Last 24 Hours 07/17/17 07/17/17 07/17/17 07/17/17 10:19 10:34 10:49 11:04 Temp 100.0 100.0 Pulse 82 84 84 84 Resp 16 16 16 16 B/P (MAP) 142/68 155/75 148/62 158/71 Pulse Ox 100 96 100 95 O2 Delivery Simple Mask Room Air Room Air Room Air O2 Flow Rate 10 07/17/17 07/17/17 07/17/17 07/17/17 11:19 11:34 12:00 16:00 Temp 97.8 98.2 97.8 98.2 Pulse 84 84 91 81 Resp 16 16 18 16 B/P (MAP) 144/69 146/70 165/82 (109) 143/70 (94) Pulse Ox 94 94 96 98 O2 Delivery Room Air Room Air Room Air Room Air 07/17/17 07/17/17 07/17/17 07/17/17 20:00 20:00 22:30 22:37 Temp 98.4 98.4 Pulse 84 84 82 Resp 16 18 B/P (MAP) 199/93 (128) 187/92 Pulse Ox 98 99 O2 Delivery Room Air Room Air Room Air 07/17/17 07/18/17 07/18/17 07/18/17 22:45 02:43 02:48 03:16 Pulse 84 90 88 100 Resp 18 20 20 B/P (MAP) 172/75 (107) 195/82 195/82 (119) 178/56 (96) Pulse Ox 98 99 99 O2 Delivery Room Air Room Air Room Air 07/18/17 07/18/17 07/18/17 07:00 08:00 08:48 Temp 98.1 98.1 Pulse 84 84 Resp 20 B/P (MAP) 198/109 (138) 198/109 Pulse Ox 98 O2 Delivery Room Air Room Air NAVI PYLE MD Jul 18, 2017 10:17
--- NOTE | 2017-07-18 10:24 | PDOC ---
Dialysis Progress Note Dialysis Note Dialysis Note Seen on Hemodialysis, tolerating treatment Well Vitals on Hemodialysis: 173/107 (just got BP meds) 88 afeb General Appearance: Awake: Alert Oriented x 3 Neck: No JVD or JVP Chest: CTA Ravi Heart: S1 S2 Abdomen - Soft NTND Extremities - tr Edema ESRD : Dialysis as below F 180 NR 3.0 Hrs 3 K 2.5 Ca 140 Na 35 HC03 Qb 350 + Qd 500+ Heparin 0 Units Uf 2-3 Kgs or to dry weight as tolerated May give 25-50 gms of 25% Albumin if needed to maintain Hemodynamic stability Treatment plan reviewed and discussed with patternmaker hand Vitals Vital Signs Vital Signs Date Time Temp Pulse Resp B/P (MAP) Pulse Ox O2 Delivery O2 Flow Rate FiO2 07/18/17 08:48 84 198/109 07/18/17 08:00 Room Air 07/18/17 07:00 98.1 20 98 98.1 07/17/17 10:19 10 Labs Last Labs Laboratory Tests Test 07/17/17 04:40 07/18/17 04:45 White Blood Count 10.6 x10^3/uL (4.0-11.0) 12.0 x10^3/uL (4.0-11.0) Red Blood Count 4.85 x10^6/uL (3.50-5.40) 4.17 x10^6/uL (3.50-5.40) Hemoglobin 14.2 g/dL (12.0-15.5) 12.2 g/dL (12.0-15.5) Hematocrit 42.6 % (36.0-47.0) 37.1 % (36.0-47.0) Mean Corpuscular Volume 88 fL (79-100) 89 fL (79-100) Mean Corpuscular Hemoglobin 29 pg (25-35) 29 pg (25-35) Mean Corpuscular Hemoglobin Concent 33 g/dL (31-37) 33 g/dL (31-37) Red Cell Distribution Width 19.0 % (11.5-14.5) 19.1 % (11.5-14.5) Platelet Count 229 x10^3/uL (140-400) 226 x10^3/uL (140-400) Neutrophils (%) (Auto) 78 % (31-73) 82 % (31-73) Lymphocytes (%) (Auto) 10 % (24-48) 7 % (24-48) Monocytes (%) (Auto) 11 % (0-9) 10 % (0-9) Eosinophils (%) (Auto) 1 % (0-3) 0 % (0-3) Basophils (%) (Auto) 1 % (0-3) 1 % (0-3) Neutrophils # (Auto) 8.3 x10^3uL (1.8-7.7) 9.8 x10^3uL (1.8-7.7) Lymphocytes # (Auto) 1.1 x10^3/uL (1.0-4.8) 0.9 x10^3/uL (1.0-4.8) Monocytes # (Auto) 1.1 x10^3/uL (0.0-1.1) 1.2 x10^3/uL (0.0-1.1) Eosinophils # (Auto) 0.1 x10^3/uL (0.0-0.7) 0.0 x10^3/uL (0.0-0.7) Basophils # (Auto) 0.1 x10^3/uL (0.0-0.2) 0.1 x10^3/uL (0.0-0.2) Sodium Level 135 mmol/L (136-145) 133 mmol/L (136-145) Potassium Level 4.1 mmol/L (3.5-5.1) 4.4 mmol/L (3.5-5.1) Chloride Level 98 mmol/L (98-107) 98 mmol/L (98-107) Carbon Dioxide Level 28 mmol/L (21-32) 25 mmol/L (21-32) Anion Gap 9 (6-14) 10 (6-14) Blood Urea Nitrogen 20 mg/dL (7-20) 32 mg/dL (7-20) Creatinine 2.7 mg/dL (0.6-1.0) 3.6 mg/dL (0.6-1.0) Estimated GFR (Cockcroft-Gault) 22.3 16.0 Glucose Level 114 mg/dL (70-99) 156 mg/dL (70-99) Calcium Level 9.5 mg/dL (8.5-10.1) 9.0 mg/dL (8.5-10.1) Phosphorus Level 4.4 mg/dL (2.6-4.7) Albumin 3.1 g/dL (3.4-5.0) Laboratory Tests Test 07/18/17 04:45 White Blood Count 12.0 x10^3/uL (4.0-11.0) Red Blood Count 4.17 x10^6/uL (3.50-5.40) Hemoglobin 12.2 g/dL (12.0-15.5) Hematocrit 37.1 % (36.0-47.0) Mean Corpuscular Volume 89 fL (79-100) Mean Corpuscular Hemoglobin 29 pg (25-35) Mean Corpuscular Hemoglobin Concent 33 g/dL (31-37) Red Cell Distribution Width 19.1 % (11.5-14.5) Platelet Count 226 x10^3/uL (140-400) Neutrophils (%) (Auto) 82 % (31-73) Lymphocytes (%) (Auto) 7 % (24-48) Monocytes (%) (Auto) 10 % (0-9) Eosinophils (%) (Auto) 0 % (0-3) Basophils (%) (Auto) 1 % (0-3) Neutrophils # (Auto) 9.8 x10^3uL (1.8-7.7) Lymphocytes # (Auto) 0.9 x10^3/uL (1.0-4.8) Monocytes # (Auto) 1.2 x10^3/uL (0.0-1.1) Eosinophils # (Auto) 0.0 x10^3/uL (0.0-0.7) Basophils # (Auto) 0.1 x10^3/uL (0.0-0.2) Sodium Level 133 mmol/L (136-145) Potassium Level 4.4 mmol/L (3.5-5.1) Chloride Level 98 mmol/L (98-107) Carbon Dioxide Level 25 mmol/L (21-32) Anion Gap 10 (6-14) Blood Urea Nitrogen 32 mg/dL (7-20) Creatinine 3.6 mg/dL (0.6-1.0) Estimated GFR (Cockcroft-Gault) 16.0 Glucose Level 156 mg/dL (70-99) Calcium Level 9.0 mg/dL (8.5-10.1) LEONARDO TANNER MD Jul 18, 2017 10:24
[2017-07-18] MEDS ORDERED: amLODIPine BESYLATE 5 MG TABLET PO SCH (11:00)
--- NOTE | 2017-07-18 13:25 | PDOC ---
TING CARRILLO SEMICONDUCTOR LAB TECHNICIAN 07/18/17 1325: CARDIO Progress Notes Date and Time Date of Service 07/18/2017 Time of Evaluation 1345 Subjective Subjective: No Chest Pain, No shortness of breath, No Palpitations Vitals Vitals Vital Signs Date Time Temp Pulse Resp B/P (MAP) Pulse Ox O2 Delivery O2 Flow Rate FiO2 07/18/17 08:48 84 198/109 07/18/17 08:00 Room Air 07/18/17 07:00 98.1 20 98 98.1 07/17/17 10:19 10 Weight Weight [ ] Laboratory Labs Laboratory Tests Test 07/18/17 04:45 White Blood Count 12.0 x10^3/uL (4.0-11.0) Red Blood Count 4.17 x10^6/uL (3.50-5.40) Hemoglobin 12.2 g/dL (12.0-15.5) Hematocrit 37.1 % (36.0-47.0) Mean Corpuscular Volume 89 fL (79-100) Mean Corpuscular Hemoglobin 29 pg (25-35) Mean Corpuscular Hemoglobin Concent 33 g/dL (31-37) Red Cell Distribution Width 19.1 % (11.5-14.5) Platelet Count 226 x10^3/uL (140-400) Neutrophils (%) (Auto) 82 % (31-73) Lymphocytes (%) (Auto) 7 % (24-48) Monocytes (%) (Auto) 10 % (0-9) Eosinophils (%) (Auto) 0 % (0-3) Basophils (%) (Auto) 1 % (0-3) Neutrophils # (Auto) 9.8 x10^3uL (1.8-7.7) Lymphocytes # (Auto) 0.9 x10^3/uL (1.0-4.8) Monocytes # (Auto) 1.2 x10^3/uL (0.0-1.1) Eosinophils # (Auto) 0.0 x10^3/uL (0.0-0.7) Basophils # (Auto) 0.1 x10^3/uL (0.0-0.2) Sodium Level 133 mmol/L (136-145) Potassium Level 4.4 mmol/L (3.5-5.1) Chloride Level 98 mmol/L (98-107) Carbon Dioxide Level 25 mmol/L (21-32) Anion Gap 10 (6-14) Blood Urea Nitrogen 32 mg/dL (7-20) Creatinine 3.6 mg/dL (0.6-1.0) Estimated GFR (Cockcroft-Gault) 16.0 Glucose Level 156 mg/dL (70-99) Calcium Level 9.0 mg/dL (8.5-10.1) Microbiology Micro Microbiology 07/10/17 Urine Culture - Final, Complete 07/10/17 Urine Culture Result 1 (DEEPTHI) - Final, Complete Review of Systems Constitutional: yes: alert, oriented Ears/Nose/Throat: Yes: no symptom reported Eyes: Yes: no symptom reported Pulmonary: Yes no symptom reported Cardiovascular: Yes no symptom reported Gastrointestional: Yes: constipation Genitourinary: Yes: no symptom reported Musculoskeletal: Yes: muscle stiffness Skin: Yes no symptom reported Psychiatric/Neurological: Yes: no symptom reported Physical Exam HEENT: Neck Supple W Full Motion Chest: Symmetric LUNGS: Other (diminished bases) Heart: S1S2, RRR (SR and no significant ectopies) Abdomen: Soft N/T Extremities: No Calf Tenderness, Other (1+ bilateral LE pitting edema) Neurology: alert, oriented, follow commands Assessment Assessment 1. Malignant HTN: remains labile mainly at noc. Presently her BP is much better and after HD 2. New ESRD. 3. Acute CHF with systolic/diastolic dysfunction: compensated 4. Elevated troponin: Troponin peaked at 0.3, demand mediated 5. Likely SUZANNE 6. Tobaccoism; smoking cessation 7. Pedunculated LV mass: Scheduled for surgical excision but cancelled with follow up KEVIN and multiple contrast imaging noted with no existence of lesions to LV nor atrial chambers 8. NICM: multifactorial. EF 40% Recommendations 1. Fluid off loading per HD 2. Continue with secondary prevention. Losartan/transdermal Catapres has been replaced. Will start Norvasc at hs and will titrate up as warranted. Labetolol IV PRN. 3. Supportive care 4. Follow up in office in 2-3 weeks. GWYN LENNNO MD 07/18/17 7396: CARDIO Progress Notes Assessment Assessment Patient seen and examined. Agree with LAND SURVEY TECHNICIAN's assessment and plan. Pre-op KEVIN did not show any evidence of LV mass. No clinical evidence for CVA or stigmata for peripheral embolization Follow-up with our office in 1 month TING CARRILLO APRN Jul 18, 2017 13:25 GWYN LENNON MD Jul 18, 2017 16:41
[2017-07-18] MEDS: FERROUS SULFATE 325 MG TABLET. PO SCH (13:47)
[2017-07-18] MEDS: ATORVASTATIN CALCIUM 20 MG TABLET PO SCH (20:30)
[2017-07-18] MEDS: amLODIPine BESYLATE 5 MG TABLET PO SCH (20:31)
[2017-07-18] MEDS ORDERED: LABETALOL HCL 200 MG TABLET PO SCH (21:00)
[2017-07-19 03:20] VITALS: BP 144/86
[2017-07-19 07:00] VITALS: BP 142/81
[2017-07-19 07:48] LABS: BASO # 0.1 x10^3/uL (0.0-0.2); BASO % 1 % (0-3); CALCIUM 9.1 mg/dL (8.5-10.1); CREATININE 2.3 mg/dL (0.6-1.0); EOS % 1 % (0-3); GFR 26.8; HEMATOCRIT 40.1 % (36.0-47.0); HEMOGLOBIN 12.8 g/dL (12.0-15.5); LYMPH # 1.1 x10^3/uL (1.0-4.8); LYMPH % 13 % (24-48); MEAN CORPUSCULAR HEMOGLOBIN 29 pg (25-35); MEAN CORPUSCULAR HGB CONC 32 g/dL (31-37); MEAN CORPUSCULAR VOLUME 90 fL (79-100); MONO % 11 % (0-9); NEUT % 74 % (31-73); PLATELET COUNT 210 x10^3/uL (140-400); POTASSIUM 4.1 mmol/L (3.5-5.1); RED BLOOD COUNT 4.47 x10^6/uL (3.50-5.40); RED CELL DISTRIBUTION WIDTH 18.7 % (11.5-14.5); WHITE BLOOD COUNT 8.1 x10^3/uL (4.0-11.0)
[2017-07-19] MEDS ORDERED: amLODIPine BESYLATE 10 MG TABLET PO SCH (09:00)
[2017-07-19] MEDS ORDERED: LOSA50TA6 PO (09:10)
[2017-07-19] MEDS ORDERED: FERR-26 PO (09:10)
[2017-07-19] MEDS ORDERED: ATOR10TA PO (09:10)
[2017-07-19] MEDS ORDERED: AMLO5TAB4 PO (09:10)
[2017-07-19] MEDS: FERROUS SULFATE 325 MG TABLET. PO SCH (09:22)
[2017-07-19] MEDS: LOSARTAN POTASSIUM 50 MG TABLET. PO SCH (09:25)
[2017-07-19 11:00] VITALS: BP 134/85
--- NOTE | 2017-07-19 12:42 | PDOC3 ---
Discharge Summary Visit Information Date of Admission: Jul 09, 2017 Date of Discharge: Jul 19, 2017 Admitting Diagnosis Comment: 1. L Ventricular mass/thrombus: resection plannedbut on rpt echo in OR, mass had resolved. surgery aborted. 2. CHF exacerbation: symptomatically stable. 3. Hypertensive urgency: labile BP. no renal artery stenosis on US. 4. ESRD new HD 5. Anemia: of CKD Brief Hospital Course Allergies Allergies Coded Allergies Type Severity Reaction Last Updated Verified No Known Drug Allergies 07/17/17 No Vital Signs Vital Signs Date Time Temp Pulse Resp B/P (MAP) Pulse Ox O2 Delivery O2 Flow Rate FiO2 07/19/17 11:00 98.4 82 16 134/85 (101) 100 Room Air 98.4 Lab Results Laboratory Tests Test 07/18/17 04:45 07/19/17 06:52 White Blood Count 12.0 x10^3/uL (4.0-11.0) 8.1 x10^3/uL (4.0-11.0) Red Blood Count 4.17 x10^6/uL (3.50-5.40) 4.47 x10^6/uL (3.50-5.40) Hemoglobin 12.2 g/dL (12.0-15.5) 12.8 g/dL (12.0-15.5) Hematocrit 37.1 % (36.0-47.0) 40.1 % (36.0-47.0) Mean Corpuscular Volume 89 fL (79-100) 90 fL (79-100) Mean Corpuscular Hemoglobin 29 pg (25-35) 29 pg (25-35) Mean Corpuscular Hemoglobin Concent 33 g/dL (31-37) 32 g/dL (31-37) Red Cell Distribution Width 19.1 % (11.5-14.5) 18.7 % (11.5-14.5) Platelet Count 226 x10^3/uL (140-400) 210 x10^3/uL (140-400) Neutrophils (%) (Auto) 82 % (31-73) 74 % (31-73) Lymphocytes (%) (Auto) 7 % (24-48) 13 % (24-48) Monocytes (%) (Auto) 10 % (0-9) 11 % (0-9) Eosinophils (%) (Auto) 0 % (0-3) 1 % (0-3) Basophils (%) (Auto) 1 % (0-3) 1 % (0-3) Neutrophils # (Auto) 9.8 x10^3uL (1.8-7.7) 5.9 x10^3uL (1.8-7.7) Lymphocytes # (Auto) 0.9 x10^3/uL (1.0-4.8) 1.1 x10^3/uL (1.0-4.8) Monocytes # (Auto) 1.2 x10^3/uL (0.0-1.1) 0.9 x10^3/uL (0.0-1.1) Eosinophils # (Auto) 0.0 x10^3/uL (0.0-0.7) 0.1 x10^3/uL (0.0-0.7) Basophils # (Auto) 0.1 x10^3/uL (0.0-0.2) 0.1 x10^3/uL (0.0-0.2) Sodium Level 133 mmol/L (136-145) 135 mmol/L (136-145) Potassium Level 4.4 mmol/L (3.5-5.1) 4.1 mmol/L (3.5-5.1) Chloride Level 98 mmol/L (98-107) 99 mmol/L (98-107) Carbon Dioxide Level 25 mmol/L (21-32) 30 mmol/L (21-32) Anion Gap 10 (6-14) 6 (6-14) Blood Urea Nitrogen 32 mg/dL (7-20) 22 mg/dL (7-20) Creatinine 3.6 mg/dL (0.6-1.0) 2.3 mg/dL (0.6-1.0) Estimated GFR (Cockcroft-Gault) 16.0 26.8 Glucose Level 156 mg/dL (70-99) 99 mg/dL (70-99) Calcium Level 9.0 mg/dL (8.5-10.1) 9.1 mg/dL (8.5-10.1) Laboratory Tests Test 07/19/17 06:52 White Blood Count 8.1 x10^3/uL (4.0-11.0) Red Blood Count 4.47 x10^6/uL (3.50-5.40) Hemoglobin 12.8 g/dL (12.0-15.5) Hematocrit 40.1 % (36.0-47.0) Mean Corpuscular Volume 90 fL (79-100) Mean Corpuscular Hemoglobin 29 pg (25-35) Mean Corpuscular Hemoglobin Concent 32 g/dL (31-37) Red Cell Distribution Width 18.7 % (11.5-14.5) Platelet Count 210 x10^3/uL (140-400) Neutrophils (%) (Auto) 74 % (31-73) Lymphocytes (%) (Auto) 13 % (24-48) Monocytes (%) (Auto) 11 % (0-9) Eosinophils (%) (Auto) 1 % (0-3) Basophils (%) (Auto) 1 % (0-3) Neutrophils # (Auto) 5.9 x10^3uL (1.8-7.7) Lymphocytes # (Auto) 1.1 x10^3/uL (1.0-4.8) Monocytes # (Auto) 0.9 x10^3/uL (0.0-1.1) Eosinophils # (Auto) 0.1 x10^3/uL (0.0-0.7) Basophils # (Auto) 0.1 x10^3/uL (0.0-0.2) Sodium Level 135 mmol/L (136-145) Potassium Level 4.1 mmol/L (3.5-5.1) Chloride Level 99 mmol/L (98-107) Carbon Dioxide Level 30 mmol/L (21-32) Anion Gap 6 (6-14) Blood Urea Nitrogen 22 mg/dL (7-20) Creatinine 2.3 mg/dL (0.6-1.0) Estimated GFR (Cockcroft-Gault) 26.8 Glucose Level 99 mg/dL (70-99) Calcium Level 9.1 mg/dL (8.5-10.1) Brief Hospital Course Ms. Rolle is a 52 old AA female admitted for SOA transferred from [place] with a BNP > 35K, CHF on CXR. Unfortunately course remarkable for needing to initiate HD. NOw esrd new HD. chair time being set up. Course also remarkable for "mural thrombus" thought seen on imaging, got heparin, was planned for thoracic sx but on rpt echo.imaging showed no thrombus so open heart sx was cancelled, No demonstartion of hemodynamic instability or any analogous sxs. REady for dc today once HD chair time set up. Left a voicemail to dtr's phone Nicole Medina done Dw RN mi, Discharge Information Condition at Discharge: Improved, Stable Follow Up: Weeks (op HD renal) Disposition/Orders: D/C to Home Miscellaneous Medications Info (No Known Medications Prior To Admisstion), 1 EACH MC, (Reported) NAVI PYLE MD Jul 19, 2017 12:42
[2017-07-19 15:00] VITALS: BP 137/83
--- NOTE | 2017-07-19 16:26 | RAD ---
APPROVED REPORT Patient Location: IN-PATIENT Laterality:Bilateral Indications preop Risk Factors Hypertension: Doppler Spectral Velocity Analysis Right Left pCCA pCCA 67/15 cm/s mCCA 64/17 cm/smCCA 59/15 cm/s dCCA 87/18 cm/sdCCA 47/14 cm/s ECA 186/ cm/sECA 37/ cm/s pICA 96/27 cm/spICA 41/14 cm/s [place] 119/21 cm/smICA 42/14 cm/s dICA 79/33 cm/sdICA 58/23 cm/s Vert. 63/ cm/sVert. 35/ cm/s ICA/CCA 1.37ICA/CCA 0.87 Findings Garcia scale images of the bilateral common carotid, carotid bulbs and external and internal cardio art eries reveal mild to moderate atherosclerotic plaque without any significant high-grade obstructive l esions noted. Grayscale images of the left external carotid artery revealed severely diminished flows in the mid to distal segment. Velocities and color Doppler profile of the right common carotid and internal carotid artery do not r eveal any high-grade stenosis. The right external coronary artery appears to be stenosed approximatel y 50% based on elevated velocities. Velocities and color Doppler profile of the left common carotid and internal carotid arteries do not reveal any evidence of high-grade disease. Velocities and color Doppler at the level of the proximal left external carotid arteries reveal possible significant severe atretic vessel or stenosis. The mid to distal vessel does not have any evidence of flow and there may be a proximal occlusion. The bilateral vertebral arteries appear to be antegrade Critical Notification Critical Value: No <Conclusion> 1. No evidence of high-grade internal carotid arterial disease. 2. Suspect left external carotid artery occlusion. 3. Antegrade vertebral velocities bilaterally. 4. Mild to moderate atherosclerotic plaque throughout the common carotid and carotid bulbs.
--- NOTE | 2017-07-19 16:45 | PDOC ---
SUBJECTIVE ROS ESRD Doign well - unhappy about having to do dialysis CVS: no Orthopnea, no CP RESP: no SOB, no CASAS GI: no Nausea, no Vomiting : no Dysuria, no Urgency OBJECTIVE Vital Signs Vital Signs Date Time Temp Pulse Resp B/P (MAP) Pulse Ox O2 Delivery O2 Flow Rate FiO2 07/19/17 15:00 98.2 84 16 137/83 (101) 100 Room Air 98.2 PHYSICAL EXAM Physical Exam General Appearance: Awake Alert Oriented x 3 In no Distress Eyes: VIsion Unchanged Conjunctiva Normal EN: No EN Drainage Mucous Memb. moist Neck: no JVD min JVP Supple no Thyromegaly CVS: S1 S2 ? Murmur No Gallop No Rub no Edema Resp: rare basal Rales no Rhonchi no Acc. Muscle use GI: BS +ve NO Bruit Non Tender Non Distended : no CVA tenderness; no Suprapubic Tenderness Assessment & Plan: ESRD: Current fluid and E-lyte status does not necessitate emergent need for dialysis. Will re-evaluate for dialysis in the am and continue TTSat as OP. She is feeling much better after starting HD. HTN - now better controlled Fedef state: as noted so IV Iron as ordered; no EPO for current levels of hgb Proteinruia - 2.7gms. S. Protein Gap is small so no PEPs ordered COMMENT/RELEVANT DATA Meds Current Medications Medications (Trade) Dose Ordered Sig/Yeison Start Time Stop Time Status Last Admin Dose Admin Acetaminophen (Tylenol) 650 mg PRN Q6HRS PRN 07/14/17 15:45 07/14/17 15:54 650 MG Aminocaproic Acid (Amicar) 5,000 mg STK-MED ONCE 07/17/17 06:57 07/17/17 06:58 DC Amlodipine Besylate (Norvasc) 5 mg QHS 07/18/17 21:00 07/18/17 20:31 5 MG Aspirin (Children'S Aspirin) 81 mg DAILYWBKFT 07/10/17 10:15 07/13/17 14:04 DC 07/12/17 10:32 81 MG Aspirin (Ecotrin) 81 mg DAILYWBKFT 07/11/17 08:00 UNV Atorvastatin Calcium (Lipitor) 10 mg QHS 07/18/17 21:00 07/18/17 20:30 10 MG Benzocaine (Hurricaine One) 2 spray 1X ONCE 07/11/17 12:05 07/11/17 12:07 DC Carvedilol (Coreg) 6.25 mg BIDWMEALS 07/10/17 17:00 07/11/17 09:35 DC 07/11/17 08:39 6.25 MG Cefazolin Sodium 1 gm/Sodium Chloride 500 ml @ 500 mls/hr 1X PERIOP ONCE 07/17/17 06:00 07/17/17 07:40 DC Cellulose 1 each STK-MED ONCE 07/17/17 07:35 07/17/17 07:36 DC Clonidine HCl (Catapres Tts-2) 1 patch WEEKLY 07/11/17 10:30 07/18/17 08:49 1 PATCH Clonidine HCl (Catapres) 0.2 mg 1X ONCE 07/11/17 10:30 07/11/17 10:31 DC 07/11/17 10:32 0.2 MG Dexamethasone Sodium Phosphate (Decadron) 20 mg STK-MED ONCE 07/17/17 06:57 07/17/17 06:58 DC Diphenhydramine HCl (Benadryl) 25 mg 1X PRN PRN 07/18/17 09:30 07/19/17 09:29 DC Epinephrine HCl (Adrenalin) 1 mg STK-MED ONCE 07/17/17 06:57 07/17/17 06:58 DC Etomidate (Amidate) 20 mg STK-MED ONCE 07/17/17 06:57 07/17/17 06:58 DC Fentanyl Citrate (Fentanyl 2ml Vial) 50 mcg PRN Q5MIN PRN 07/17/17 07:00 07/18/17 06:59 DC Ferrous Sulfate (Feosol) 325 mg DAILYWBKFT 07/18/17 12:00 07/19/17 09:22 325 MG Furosemide (Lasix) 80 mg BID92 07/11/17 14:00 07/16/17 22:00 DC 07/15/17 14:40 80 MG Glycopyrrolate (Robinul) 1 mg STK-MED ONCE 07/17/17 09:22 07/17/17 09:23 DC Heparin Sodium (Porcine) 30,000 unit STK-MED ONCE 07/17/17 06:58 07/17/17 06:59 DC Heparin Sodium (Porcine) (Heparin Sodium) 3,800 unit 1X ONCE 07/13/17 15:15 07/13/17 15:16 DC 07/13/17 15:14 3,800 UNIT Heparin Sodium (Porcine) (Heparin Sq) 5,000 unit Q8HRS 07/10/17 14:00 07/16/17 23:00 DC 07/16/17 16:00 5,000 UNIT Heparin Sodium/ Sodium Chloride 1,000 unit 1X ONCE 07/13/17 15:15 07/13/17 15:16 DC 07/13/17 15:13 1,000 UNIT Hydralazine HCl (Apresoline) 20 mg STK-MED ONCE 07/17/17 10:01 07/17/17 10:02 DC Hydromorphone HCl (Dilaudid) 0.5 mg PRN Q10MIN PRN 07/17/17 07:00 07/18/17 06:59 DC Info (Do NOT chart on this entry -- for MONITORING) 1 each PRN DAILY PRN 07/13/17 09:45 07/15/17 09:44 DC Info (PHARMACY MONITORING -- do not chart) 1 each PRN DAILY PRN 07/18/17 09:30 07/18/17 13:58 DC Iodixanol (Visipaque 320) 100 ml 1X ONCE 07/13/17 09:30 07/13/17 09:33 DC 07/13/17 09:53 45 ML Iohexol (Omnipaque 350 Mg/ml) 100 ml STK-MED ONCE 07/13/17 08:54 07/13/17 08:55 DC Iron Sucrose 200 mg/Sodium Chloride 110 ml @ 55 mls/hr 3X/WEEK 07/11/17 10:30 07/20/17 10:59 07/18/17 08:54 55 MLS/HR Isoflurane (Isoflurane) 90 ml STK-MED ONCE 07/17/17 10:24 07/17/17 10:25 DC Isosorbide Mononitrate (Imdur) 30 mg 1X ONCE 07/12/17 10:30 07/12/17 10:31 DC 07/12/17 10:35 30 MG Labetalol HCl (Normodyne) 20 mg PRN Q2HR PRN 07/18/17 08:00 Labetalol HCl (Trandate) 200 mg BID 07/18/17 21:00 07/18/17 21:00 DC Levofloxacin (Levaquin) 250 mg HS 07/13/17 21:00 07/14/17 11:58 DC 07/13/17 21:22 250 MG Levofloxacin/ Dextrose 50 ml @ 50 mls/hr Q24H 07/10/17 19:00 07/13/17 16:00 DC 07/12/17 21:27 50 MLS/HR Lidocaine HCl (Lidocaine Pf 2% Vial) 5 ml STK-MED ONCE 07/17/17 06:57 07/17/17 06:58 DC Lidocaine HCl (Xylocaine 2% Topical 30gm Tube) 1 fredi 1X ONCE 07/11/17 12:05 07/11/17 12:07 DC Lidocaine/ Epinephrine (Xylocaine 1%-Epi 1:100,000) 10 ml 1X ONCE 07/13/17 15:15 07/13/17 15:16 DC 07/13/17 15:13 10 ML Losartan Potassium (Cozaar) 50 mg DAILY 07/15/17 15:00 07/19/17 09:25 50 MG Magnesium Sulfate/ Dextrose 50 ml @ 25 mls/hr PRN DAILY PRN 07/10/17 10:15 Metoprolol Tartrate (Lopressor) 5 mg STK-MED ONCE 07/17/17 08:04 07/17/17 08:05 DC Midazolam HCl (Versed) 5 mg STK-MED ONCE 07/17/17 06:57 07/17/17 06:58 DC Morphine Sulfate 1 mg PRN Q10MIN PRN 07/17/17 07:00 07/18/17 06:59 DC Neostigmine Methylsulfate 5 mg STK-MED ONCE 07/17/17 09:23 07/17/17 09:24 DC Nicardipine HCl 50 mg/Sodium Chloride 270 ml @ 0 mls/hr CONT PRN 07/09/17 16:00 07/10/17 10:36 DC 07/09/17 17:26 25 MLS/HR Nitroglycerin (Nitroglycerin) 200 mcg 1X ONCE 07/13/17 09:30 07/13/17 09:33 DC 07/13/17 09:56 200 MCG Nitroglycerin/ Dextrose 250 ml @ As Directed STK-MED ONCE 07/17/17 06:57 07/17/17 06:58 DC Ondansetron HCl (Zofran) 4 mg STK-MED ONCE 07/17/17 06:57 07/17/17 06:58 DC Oxycodone/ Acetaminophen (Percocet 5/325) 1 tab PRN Q6HRS PRN 07/14/17 15:45 Phenylephrine HCl (Ford-Synephrine Inj) 10 mg STK-MED ONCE 07/17/17 06:57 07/17/17 06:58 DC Potassium Chloride 15 meq/ Sodium Bicarbonate 12.5 meq/Parenteral Electrolytes 520 ml @ 520 mls/hr 1X PERIOP ONCE 07/17/17 06:00 07/17/17 07:40 DC Potassium Chloride 70 meq/ Sodium Bicarbonate 12.5 meq/Lidocaine HCl 24 ml/Parenteral Electrolytes 571.5 ml @ 571.5 mls/ hr 1X PERIOP ONCE 07/17/17 06:00 07/17/17 07:40 DC Potassium Chloride (Klor-Con) 40 meq BIDWMEALS 07/10/17 11:30 07/16/17 23:00 DC 07/15/17 17:19 40 MEQ Prochlorperazine Edisylate (Compazine) 5 mg PACU PRN PRN 07/17/17 07:00 07/18/17 06:59 DC Propofol 20 ml @ As Directed STK-MED ONCE 07/17/17 06:57 07/17/17 06:58 DC Regadenoson (Lexiscan) 0.4 mg 1X ONCE 07/12/17 09:00 07/12/17 09:01 DC 07/12/17 09:37 0.4 MG Ringer's Solution 1,000 ml @ 0 mls/hr Q0M 07/17/17 07:00 07/17/17 18:59 DC Rocuronium [place] (Zemuron) 100 mg STK-MED ONCE 07/17/17 06:57 07/17/17 06:58 DC Sodium Chloride 1,000 ml @ 400 mls/hr Q2H30M PRN 07/18/17 09:23 07/18/17 21:22 DC Sodium Chloride (Normal Saline Flush) 10 ml 1X PRN PRN 07/13/17 15:45 07/14/17 15:44 DC Sodium Cl/Sod Bicarb/Potass Cl/ PEG (Golytely) 4,000 ml 1X ONCE 07/10/17 18:45 07/10/17 18:46 UNV Spironolactone (Aldactone) 50 mg DAILY 07/11/17 10:30 07/16/17 23:00 DC 07/15/17 08:37 50 MG Sufentanil Citrate (Sufenta) 100 mcg STK-MED ONCE 07/17/17 06:57 07/17/17 06:58 DC Sulfur Hexafluoride Microspheres (Lumason) 25 mg 1X ONCE 07/17/17 10:15 07/17/17 10:20 DC Vancomycin HCl (Vanco) 10 gm STK-MED ONCE 07/17/17 07:35 07/17/17 07:36 DC Verapamil HCl (Verapamil) 2.5 mg 1X ONCE 07/13/17 09:30 07/13/17 09:33 DC 07/13/17 09:56 2.5 MG Vitamin D (Vitamin D3) 5,000 unit DAILY 07/11/17 10:30 07/16/17 23:00 DC 07/16/17 15:59 5,000 UNIT Lab Laboratory Tests Test 07/19/17 06:52 White Blood Count 8.1 x10^3/uL (4.0-11.0) Red Blood Count 4.47 x10^6/uL (3.50-5.40) Hemoglobin 12.8 g/dL (12.0-15.5) Hematocrit 40.1 % (36.0-47.0) Mean Corpuscular Volume 90 fL (79-100) Mean Corpuscular Hemoglobin 29 pg (25-35) Mean Corpuscular Hemoglobin Concent 32 g/dL (31-37) Red Cell Distribution Width 18.7 % (11.5-14.5) Platelet Count 210 x10^3/uL (140-400) Neutrophils (%) (Auto) 74 % (31-73) Lymphocytes (%) (Auto) 13 % (24-48) Monocytes (%) (Auto) 11 % (0-9) Eosinophils (%) (Auto) 1 % (0-3) Basophils (%) (Auto) 1 % (0-3) Neutrophils # (Auto) 5.9 x10^3uL (1.8-7.7) Lymphocytes # (Auto) 1.1 x10^3/uL (1.0-4.8) Monocytes # (Auto) 0.9 x10^3/uL (0.0-1.1) Eosinophils # (Auto) 0.1 x10^3/uL (0.0-0.7) Basophils # (Auto) 0.1 x10^3/uL (0.0-0.2) Sodium Level 135 mmol/L (136-145) Potassium Level 4.1 mmol/L (3.5-5.1) Chloride Level 99 mmol/L (98-107) Carbon Dioxide Level 30 mmol/L (21-32) Anion Gap 6 (6-14) Blood Urea Nitrogen 22 mg/dL (7-20) Creatinine 2.3 mg/dL (0.6-1.0) Estimated GFR (Cockcroft-Gault) 26.8 Glucose Level 99 mg/dL (70-99) Calcium Level 9.1 mg/dL (8.5-10.1) LEONARDO TANNER MD Jul 19, 2017 16:45
[2017-07-19 19:18] VITALS: BP 113/68
[2017-07-19] MEDS ORDERED: POLYETHYLENE GLYCOL 3350 17 GM PACKET. PO PRN (20:45)
[2017-07-19] MEDS ORDERED: MAGNESIUM HYDROXIDE 2,400 MG/30 ML ORAL.SUSP. PO PRN (20:45)
[2017-07-19] MEDS ORDERED: DOCUSATE SODIUM 100 MG CAPSULE. PO PRN (20:45)
[2017-07-19] MEDS: amLODIPine BESYLATE 5 MG TABLET PO SCH (21:27)
[2017-07-19] MEDS: ATORVASTATIN CALCIUM 20 MG TABLET PO SCH (21:28)
[2017-07-19 23:24] VITALS: BP 129/77
[2017-07-20 03:20] VITALS: BP 116/58
[2017-07-20 04:42] LABS: BASO # 0.1 x10^3/uL (0.0-0.2); BASO % 1 % (0-3); EOS % 1 % (0-3); HEMATOCRIT 40.6 % (36.0-47.0); LYMPH % 12 % (24-48); MEAN CORPUSCULAR HEMOGLOBIN 29 pg (25-35); MEAN CORPUSCULAR HGB CONC 32 g/dL (31-37); MEAN CORPUSCULAR VOLUME 90 fL (79-100); MONO % 11 % (0-9); NEUT % 76 % (31-73); PLATELET COUNT 205 x10^3/uL (140-400); WHITE BLOOD COUNT 8.3 x10^3/uL (4.0-11.0)
[2017-07-20 04:57] LABS: GFR 19.8; POTASSIUM 4.5 mmol/L (3.5-5.1)
[2017-07-20 07:12] VITALS: BP 140/66
[2017-07-20] MEDS ORDERED: POLYETHYLENE GLYCOL 3350 17 GM PACKET. PO SCH (09:00)
[2017-07-20] MEDS ORDERED: DOCUSATE SODIUM 100 MG CAPSULE. PO SCH (09:00)
[2017-07-20] MEDS ORDERED: IV NORMAL SALINE 1000ML BAG 1,000 ML IV PRN ×2 (09:04)
[2017-07-20] MEDS ORDERED: 0.9 % SODIUM CHLORIDE 10 ML DISP.SYRIN. IV PRN ×2 (09:15)
[2017-07-20] MEDS ORDERED: DIALYSIS PATIENT. MC PRN (09:15)
[2017-07-20] MEDS ORDERED: diphenhydrAMINE 50 MG/ML VIAL IV PRN ×2 (09:15)
[2017-07-20] MEDS: IRON SUCROSE COMPLEX 200 MG in IV NORMAL SALINE 100ML 100 ML IV SCH (10:10)
--- NOTE | 2017-07-20 10:12 | PDOC ---
Dialysis Progress Note Dialysis Note Dialysis Note Seen on Hemodialysis, tolerating treatment Well Vitals on Hemodialysis: 121/76 88 afeb General Appearance: Awake: Alert Oriented x 3 Neck: No JVD or JVP Chest: CTA Ravi Heart: S1 S2 Abdomen - Soft NTND Extremities - tr Edema ESRD : Dialysis as below F 180 NR 3.5 Hrs 3 K 2.5 Ca 140 Na 35 HC03 Qb 350 + Qd 500+ Heparin 0 Units Uf 1.0 Kgs or to dry weight as tolerated May give 25-50 gms of 25% Albumin if needed to maintain Hemodynamic stability Treatment plan reviewed and discussed with technical account executive Vitals Vital Signs Vital Signs Date Time Temp Pulse Resp B/P (MAP) Pulse Ox O2 Delivery O2 Flow Rate FiO2 07/20/17 07:12 98.4 63 18 140/66 (90) 98 Room Air 98.4 07/17/17 10:19 10 Labs Last Labs Laboratory Tests Test 07/19/17 06:52 07/20/17 04:00 White Blood Count 8.1 x10^3/uL (4.0-11.0) 8.3 x10^3/uL (4.0-11.0) Red Blood Count 4.47 x10^6/uL (3.50-5.40) 4.50 x10^6/uL (3.50-5.40) Hemoglobin 12.8 g/dL (12.0-15.5) 13.0 g/dL (12.0-15.5) Hematocrit 40.1 % (36.0-47.0) 40.6 % (36.0-47.0) Mean Corpuscular Volume 90 fL (79-100) 90 fL (79-100) Mean Corpuscular Hemoglobin 29 pg (25-35) 29 pg (25-35) Mean Corpuscular Hemoglobin Concent 32 g/dL (31-37) 32 g/dL (31-37) Red Cell Distribution Width 18.7 % (11.5-14.5) 19.0 % (11.5-14.5) Platelet Count 210 x10^3/uL (140-400) 205 x10^3/uL (140-400) Neutrophils (%) (Auto) 74 % (31-73) 76 % (31-73) Lymphocytes (%) (Auto) 13 % (24-48) 12 % (24-48) Monocytes (%) (Auto) 11 % (0-9) 11 % (0-9) Eosinophils (%) (Auto) 1 % (0-3) 1 % (0-3) Basophils (%) (Auto) 1 % (0-3) 1 % (0-3) Neutrophils # (Auto) 5.9 x10^3uL (1.8-7.7) 6.3 x10^3uL (1.8-7.7) Lymphocytes # (Auto) 1.1 x10^3/uL (1.0-4.8) 1.0 x10^3/uL (1.0-4.8) Monocytes # (Auto) 0.9 x10^3/uL (0.0-1.1) 0.9 x10^3/uL (0.0-1.1) Eosinophils # (Auto) 0.1 x10^3/uL (0.0-0.7) 0.1 x10^3/uL (0.0-0.7) Basophils # (Auto) 0.1 x10^3/uL (0.0-0.2) 0.1 x10^3/uL (0.0-0.2) Sodium Level 135 mmol/L (136-145) 135 mmol/L (136-145) Potassium Level 4.1 mmol/L (3.5-5.1) 4.5 mmol/L (3.5-5.1) Chloride Level 99 mmol/L (98-107) 100 mmol/L (98-107) Carbon Dioxide Level 30 mmol/L (21-32) 28 mmol/L (21-32) Anion Gap 6 (6-14) 7 (6-14) Blood Urea Nitrogen 22 mg/dL (7-20) 39 mg/dL (7-20) Creatinine 2.3 mg/dL (0.6-1.0) 3.0 mg/dL (0.6-1.0) Estimated GFR (Cockcroft-Gault) 26.8 19.8 Glucose Level 99 mg/dL (70-99) 105 mg/dL (70-99) Calcium Level 9.1 mg/dL (8.5-10.1) 9.0 mg/dL (8.5-10.1) Laboratory Tests Test 9/8/17 04:00 White Blood Count 8.3 x10^3/uL (4.0-11.0) Red Blood Count 4.50 x10^6/uL (3.50-5.40) Hemoglobin 13.0 g/dL (12.0-15.5) Hematocrit 40.6 % (36.0-47.0) Mean Corpuscular Volume 90 fL (79-100) Mean Corpuscular Hemoglobin 29 pg (25-35) Mean Corpuscular Hemoglobin Concent 32 g/dL (31-37) Red Cell Distribution Width 19.0 % (11.5-14.5) Platelet Count 205 x10^3/uL (140-400) Neutrophils (%) (Auto) 76 % (31-73) Lymphocytes (%) (Auto) 12 % (24-48) Monocytes (%) (Auto) 11 % (0-9) Eosinophils (%) (Auto) 1 % (0-3) Basophils (%) (Auto) 1 % (0-3) Neutrophils # (Auto) 6.3 x10^3uL (1.8-7.7) Lymphocytes # (Auto) 1.0 x10^3/uL (1.0-4.8) Monocytes # (Auto) 0.9 x10^3/uL (0.0-1.1) Eosinophils # (Auto) 0.1 x10^3/uL (0.0-0.7) Basophils # (Auto) 0.1 x10^3/uL (0.0-0.2) Sodium Level 135 mmol/L (136-145) Potassium Level 4.5 mmol/L (3.5-5.1) Chloride Level 100 mmol/L (98-107) Carbon Dioxide Level 28 mmol/L (21-32) Anion Gap 7 (6-14) Blood Urea Nitrogen 39 mg/dL (7-20) Creatinine 3.0 mg/dL (0.6-1.0) Estimated GFR (Cockcroft-Gault) 19.8 Glucose Level 105 mg/dL (70-99) Calcium Level 9.0 mg/dL (8.5-10.1) LEONARDO TANNER MD Jul 20, 2017 10:11
--- NOTE | 2017-07-20 10:38 | PDOC ---
PROGRESS NOTES Chief Complaint Chief Complaint ESRD, new HD MWF (Op HD set up , first session ) ASSESSMENT AND PLAN: 1. 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 CHF exacerbation: symptomatically stable. 3. Hypertensive urgency: labile BP. no renal artery stenosis on US. 4. ESRD new HD 5. Anemia: of CKD History of Present Illness History of Present Illness OP HD has been set up, earliest is next week Getting HD now CREat 3.0 , K and bicarb ok Was complaining of BOV since admit, CT head and US carotids pending Dw Renal, either possibly dc today then HD on as OP, or will keep if needs HD sunday, then dc on sun All meds done NO PT needs Short term paperwork filled yesterday PLAN: Await renal rounds Dw renal and RN mi Vitals Vitals Vital Signs Date Time Temp Pulse Resp B/P (MAP) Pulse Ox O2 Delivery O2 Flow Rate FiO2 07/20/17 07:12 98.4 63 18 140/66 (90) 98 Room Air 98.4 Physical Exam General: Alert, Oriented X3, Cooperative, No acute distress Heart: Regular rate Lungs: Clear Abdomen: Normal bowel sounds, Soft, No tenderness Extremities: No edema Skin: No significant lesion Labs LABS Laboratory Tests Test 07/20/17 04:00 White Blood Count 8.3 x10^3/uL (4.0-11.0) Red Blood Count 4.50 x10^6/uL (3.50-5.40) Hemoglobin 13.0 g/dL (12.0-15.5) Hematocrit 40.6 % (36.0-47.0) Mean Corpuscular Volume 90 fL (79-100) Mean Corpuscular Hemoglobin 29 pg (25-35) Mean Corpuscular Hemoglobin Concent 32 g/dL (31-37) Red Cell Distribution Width 19.0 % (11.5-14.5) Platelet Count 205 x10^3/uL (140-400) Neutrophils (%) (Auto) 76 % (31-73) Lymphocytes (%) (Auto) 12 % (24-48) Monocytes (%) (Auto) 11 % (0-9) Eosinophils (%) (Auto) 1 % (0-3) Basophils (%) (Auto) 1 % (0-3) Neutrophils # (Auto) 6.3 x10^3uL (1.8-7.7) Lymphocytes # (Auto) 1.0 x10^3/uL (1.0-4.8) Monocytes # (Auto) 0.9 x10^3/uL (0.0-1.1) Eosinophils # (Auto) 0.1 x10^3/uL (0.0-0.7) Basophils # (Auto) 0.1 x10^3/uL (0.0-0.2) Sodium Level 135 mmol/L (136-145) Potassium Level 4.5 mmol/L (3.5-5.1) Chloride Level 100 mmol/L (98-107) Carbon Dioxide Level 28 mmol/L (21-32) Anion Gap 7 (6-14) Blood Urea Nitrogen 39 mg/dL (7-20) Creatinine 3.0 mg/dL (0.6-1.0) Estimated GFR (Cockcroft-Gault) 19.8 Glucose Level 105 mg/dL (70-99) Calcium Level 9.0 mg/dL (8.5-10.1) Review of Systems Review of Systems denies 14 pt Comment Review of Relevant I have reviewed the following items ryan (where applicable) has been applied. Labs Laboratory Tests Test 07/19/17 06:52 07/20/17 04:00 White Blood Count 8.1 x10^3/uL (4.0-11.0) 8.3 x10^3/uL (4.0-11.0) Red Blood Count 4.47 x10^6/uL (3.50-5.40) 4.50 x10^6/uL (3.50-5.40) Hemoglobin 12.8 g/dL (12.0-15.5) 13.0 g/dL (12.0-15.5) Hematocrit 40.1 % (36.0-47.0) 40.6 % (36.0-47.0) Mean Corpuscular Volume 90 fL (79-100) 90 fL (79-100) Mean Corpuscular Hemoglobin 29 pg (25-35) 29 pg (25-35) Mean Corpuscular Hemoglobin Concent 32 g/dL (31-37) 32 g/dL (31-37) Red Cell Distribution Width 18.7 % (11.5-14.5) 19.0 % (11.5-14.5) Platelet Count 210 x10^3/uL (140-400) 205 x10^3/uL (140-400) Neutrophils (%) (Auto) 74 % (31-73) 76 % (31-73) Lymphocytes (%) (Auto) 13 % (24-48) 12 % (24-48) Monocytes (%) (Auto) 11 % (0-9) 11 % (0-9) Eosinophils (%) (Auto) 1 % (0-3) 1 % (0-3) Basophils (%) (Auto) 1 % (0-3) 1 % (0-3) Neutrophils # (Auto) 5.9 x10^3uL (1.8-7.7) 6.3 x10^3uL (1.8-7.7) Lymphocytes # (Auto) 1.1 x10^3/uL (1.0-4.8) 1.0 x10^3/uL (1.0-4.8) Monocytes # (Auto) 0.9 x10^3/uL (0.0-1.1) 0.9 x10^3/uL (0.0-1.1) Eosinophils # (Auto) 0.1 x10^3/uL (0.0-0.7) 0.1 x10^3/uL (0.0-0.7) Basophils # (Auto) 0.1 x10^3/uL (0.0-0.2) 0.1 x10^3/uL (0.0-0.2) Sodium Level 135 mmol/L (136-145) 135 mmol/L (136-145) Potassium Level 4.1 mmol/L (3.5-5.1) 4.5 mmol/L (3.5-5.1) Chloride Level 99 mmol/L (98-107) 100 mmol/L (98-107) Carbon Dioxide Level 30 mmol/L (21-32) 28 mmol/L (21-32) Anion Gap 6 (6-14) 7 (6-14) Blood Urea Nitrogen 22 mg/dL (7-20) 39 mg/dL (7-20) Creatinine 2.3 mg/dL (0.6-1.0) 3.0 mg/dL (0.6-1.0) Estimated GFR (Cockcroft-Gault) 26.8 19.8 Glucose Level 99 mg/dL (70-99) 105 mg/dL (70-99) Calcium Level 9.1 mg/dL (8.5-10.1) 9.0 mg/dL (8.5-10.1) Laboratory Tests Test 07/20/17 04:00 White Blood Count 8.3 x10^3/uL (4.0-11.0) Red Blood Count 4.50 x10^6/uL (3.50-5.40) Hemoglobin 13.0 g/dL (12.0-15.5) Hematocrit 40.6 % (36.0-47.0) Mean Corpuscular Volume 90 fL (79-100) Mean Corpuscular Hemoglobin 29 pg (25-35) Mean Corpuscular Hemoglobin Concent 32 g/dL (31-37) Red Cell Distribution Width 19.0 % (11.5-14.5) Platelet Count 205 x10^3/uL (140-400) Neutrophils (%) (Auto) 76 % (31-73) Lymphocytes (%) (Auto) 12 % (24-48) Monocytes (%) (Auto) 11 % (0-9) Eosinophils (%) (Auto) 1 % (0-3) Basophils (%) (Auto) 1 % (0-3) Neutrophils # (Auto) 6.3 x10^3uL (1.8-7.7) Lymphocytes # (Auto) 1.0 x10^3/uL (1.0-4.8) Monocytes # (Auto) 0.9 x10^3/uL (0.0-1.1) Eosinophils # (Auto) 0.1 x10^3/uL (0.0-0.7) Basophils # (Auto) 0.1 x10^3/uL (0.0-0.2) Sodium Level 135 mmol/L (136-145) Potassium Level 4.5 mmol/L (3.5-5.1) Chloride Level 100 mmol/L (98-107) Carbon Dioxide Level 28 mmol/L (21-32) Anion Gap 7 (6-14) Blood Urea Nitrogen 39 mg/dL (7-20) Creatinine 3.0 mg/dL (0.6-1.0) Estimated GFR (Cockcroft-Gault) 19.8 Glucose Level 105 mg/dL (70-99) Calcium Level 9.0 mg/dL (8.5-10.1) Microbiology 07/10/17 Urine Culture - Final, Complete 07/10/17 Urine Culture Result 1 ([id number]) - Final, Complete Medications Current Medications Nicardipine HCl 50 mg/Sodium Chloride 270 ml @ 0 mls/hr CONT PRN IV SEE I/O RECORD Last administered on 07/09/17 17:26; Start 07/09/17 at 16:00; Stop 07/10 at 10:36; Status DC Levofloxacin/ Dextrose 100 ml @ 100 mls/hr Q24H IV Last administered on 19:44; Start 07/09/17 at 19:00; Stop 07/10/17 at 17:06; Status DC Magnesium Sulfate/ Dextrose 50 ml @ 25 mls/hr PRN DAILY PRN IV for Mag < 1.7 on am labs; Start 07/10/17 at 10:15 Metoprolol Tartrate (Lopressor) 12.5 mg BID PO ; Start 07/10/17 at 10:15; Stop 07/10/17 at 11:13; Status DC Aspirin (Children'S Aspirin) 81 mg DAILYWBKFT PO Last administered on 10:32; Start 07/10/17 at 10:15; Stop 07/13/17 at 14:04; Status DC Amlodipine Besylate (Norvasc) 10 mg DAILY PO Last administered on 07/15/17 08: 36; Start 07/10/17 at 10:45; Stop 07/16/17 at 22:00; Status DC Furosemide (Lasix) 40 mg BID92 IVP Last administered on 07/11/17 08:40; Start 07/10/17 at 11:00; Stop 07/11/17 at 10:00; Status DC Potassium Chloride (Klor-Con) 40 meq BIDWMEALS PO Last administered on 17:19; Start 07/10/17 at 11:30; Stop 07/16/17 at 23:00; Status DC Heparin Sodium (Porcine) (Heparin Sq) 5,000 unit Q8HRS SQ Last administered on 07/16/17 16:00; Start 07/10/17 at 14:00; Stop 07/16/17 at 23:00; Status DC Carvedilol (Coreg) 6.25 mg BIDWMEALS PO Last administered on 07/11/17 08:39; Start 07/10/17 at 17:00; Stop 07/11/17 at 09:35; Status DC Hydralazine HCl (Apresoline) 10 mg PRN Q4HRS PRN IVP ELEVATED BP, SEE COMMENTS Last administered on 07/18/17 02:43; Start 07/10/17 at 10:45 Aspirin (Ecotrin) 81 mg DAILYWBKFT PO ; Start 07/11/17 at 08:00; Status UNV Atorvastatin Calcium (Lipitor) 20 mg QHS PO Last administered on 07/17/17 20:20 ; Start 07/10/17 at 21:00; Stop 07/18/17 at 13:28; Status DC Isosorbide Mononitrate (Imdur) 30 mg DAILY PO Last administered on 07/11/17 08 :38; Start 07/10/17 at 15:30; Stop 07/12/17 at 10:16; Status DC Levofloxacin/ Dextrose 50 ml @ 50 mls/hr Q24H IV Last administered on 21:27; Start 07/10/17 at 19:00; Stop 07/13/17 at 16:00; Status DC Fentanyl Citrate (Fentanyl 2ml Vial) 25 mcg PRN Q5MIN PRN IV MILD PAIN; Start 07/11/17 at 07:00; Stop 07/12/17 at 06:59; Status DC Fentanyl Citrate (Fentanyl 2ml Vial) 50 mcg PRN Q5MIN PRN IV MODERATE PAIN; Start 07/11/17 at 07:00; Stop 07/12/17 at 06:59; Status DC Morphine Sulfate 1 mg PRN Q10MIN PRN IV SEVERE PAIN; Start 07/11/17 at 07:00; Stop 07/12/17 at 06:59; Status DC Ringer's Solution 1,000 ml @ 30 mls/hr Q24H IV ; Start 07/11/17 at 07:00; Stop 07/11/17 at 18:59; Status DC Lidocaine HCl 2 ml PRN 1X PRN ID PRIOR TO IV START; Start 07/11/17 at 07:00; Stop 07/12/17 at 06:59; Status DC Hydromorphone HCl (Dilaudid) 0.5 mg PRN Q10MIN PRN IV SEV PAIN, Second choice; Start 07/11/17 at 07:00; Stop 07/12/17 at 06:59; Status DC Prochlorperazine Edisylate (Compazine) 5 mg PACU PRN PRN IV NAUSEA, MRX1; Start 07/11/17 at 07:00; Stop 07/12/17 at 06:59; Status DC Sodium Cl/Sod Bicarb/Potass Cl/ PEG (Golytely) 4,000 ml 1X ONCE PO ; Start at 18:45; Stop 07/10/17 at 18:46; Status UNV Labetalol HCl (Trandate) 200 mg BID PO Last administered on 07/11/17 21:12; Start 07/11/17 at 21:00; Stop 07/12/17 at 07:56; Status DC Iron Sucrose 200 mg/Sodium Chloride 110 ml @ 55 mls/hr 3X/WEEK IV ; Start 07/11 at 09:30; Stop 07/11/17 at 09:58; Status DC Iron Sucrose 200 mg/Sodium Chloride 110 ml @ 55 mls/hr 3X/WEEK IV Last administered on 07/20/17 10:10; Start 07/11/17 at 10:30; Stop 07/20/17 at 10:59 Furosemide (Lasix) 80 mg BID92 IVP Last administered on 07/15/17 14:40; Start 07/11/17 at 14:00; Stop 07/16/17 at 22:00; Status DC Vitamin D (Vitamin D3) 5,000 unit DAILY PO Last administered on 07/16/17 15:59 ; Start 07/11/17 at 10:30; Stop 07/16/17 at 23:00; Status DC Spironolactone (Aldactone) 50 mg DAILY PO Last administered on 07/15/17 08:37; Start 07/11/17 at 10:30; Stop 07/16/17 at 23:00; Status DC Clonidine HCl (Catapres Tts-2) 1 patch WEEKLY TD Last administered on 07/18/17 08:49; Start 07/11/17 at 10:30 Clonidine HCl (Catapres) 0.2 mg 1X ONCE PO Last administered on 07/11/17 10: 32; Start 07/11/17 at 10:30; Stop 07/11/17 at 10:31; Status DC Lidocaine HCl (Lidocaine Pf 2% Vial) 5 ml STK-MED ONCE .ROUTE ; Start 07/11/17 at 11:14; Stop 07/11/17 at 11:15; Status DC Propofol 40 ml @ As Directed STK-MED ONCE IV ; Start 07/11/17 at 11:14; Stop at 11:15; Status DC Sulfur Hexafluoride Microspheres (Lumason) 25 mg STK-MED ONCE IVP ; Start at 11:39; Stop 07/11/17 at 11:40; Status DC Benzocaine (Hurricaine One) 1 spray STK-MED ONCE .ROUTE ; Start 07/11/17 at 12: 01; Stop 07/11/17 at 12:02; Status DC Lidocaine HCl (Xylocaine 2% Topical 30gm Tube) 30 fredi STK-MED ONCE TP ; Start at 12:01; Stop 07/11/17 at 12:02; Status DC Benzocaine (Hurricaine One) 2 spray 1X ONCE MM ; Start 07/11/17 at 12:05; Stop 07/11/17 at 12:07; Status DC Lidocaine HCl (Xylocaine 2% Topical 30gm Tube) 1 fredi 1X ONCE TP ; Start at 12:05; Stop 07/11/17 at 12:07; Status DC Sulfur Hexafluoride Microspheres (Lumason) 25 mg 1X ONCE IVP Last administered on 07/11/17 14:00; Start 07/11/17 at 14:00; Stop 07/11/17 at 14:01 ; Status DC Hydralazine HCl (Apresoline) 50 mg TID PO Last administered on 07/16/17 20:31; Start 07/12/17 at 09:00; Stop 07/16/17 at 23:00; Status DC Regadenoson (Lexiscan) 0.4 mg 1X ONCE IV Last administered on 07/12/17 09:37 ; Start 07/12/17 at 09:00; Stop 07/12/17 at 09:01; Status DC Isosorbide Mononitrate (Imdur) 60 mg DAILY PO Last administered on 07/15/17 08: 37; Start 07/13/17 at 09:00; Stop 07/16/17 at 23:00; Status DC Isosorbide Mononitrate (Imdur) 30 mg 1X ONCE PO Last administered on 10:35; Start 07/12/17 at 10:30; Stop 07/12/17 at 10:31; Status DC Iohexol (Omnipaque 350 Mg/ml) 100 ml STK-MED ONCE .ROUTE ; Start 07/13/17 at 08: 54; Stop 07/13/17 at 08:55; Status DC Heparin Sodium/ Sodium Chloride 500 ml @ As Directed STK-MED ONCE .ROUTE ; Start 07/13/17 at 08:55; Stop 07/13/17 at 08:56; Status DC Lidocaine HCl 20 ml STK-MED ONCE .ROUTE ; Start 07/13/17 at 08:55; Stop 07/13/17 at 08:56; Status DC Iodixanol (Visipaque 320) 100 ml STK-MED ONCE .ROUTE ; Start 07/13/17 at 08:55; Stop 07/13/17 at 08:56; Status DC Verapamil HCl (Verapamil) 5 mg STK-MED ONCE .ROUTE ; Start 07/13/17 at 09:05; Stop 07/13/17 at 09:06; Status DC Heparin Sodium (Porcine) (Heparin Sodium) 10,000 unit STK-MED ONCE .ROUTE ; Start 07/13/17 at 09:05; Stop 07/13/17 at 09:06; Status DC Fentanyl Citrate (Fentanyl 2ml Vial) 100 mcg STK-MED ONCE .ROUTE ; Start at 09:05; Stop 07/13/17 at 09:06; Status DC Midazolam HCl (Versed) 5 mg STK-MED ONCE .ROUTE ; Start 07/13/17 at 09:06; Stop 07/13/17 at 09:07; Status DC Nitroglycerin (Nitroglycerin) 200 mcg STK-MED ONCE .ROUTE ; Start 07/13/17 at 09: 07; Stop 07/13/17 at 09:08; Status DC Nitroglycerin (Nitroglycerin) 200 mcg 1X ONCE IART Last administered on 09:56; Start 07/13/17 at 09:30; Stop 07/13/17 at 09:33; Status DC Verapamil HCl (Verapamil) 2.5 mg 1X ONCE IART Last administered on 07/13/17 09 :56; Start 07/13/17 at 09:30; Stop 07/13/17 at 09:33; Status DC Heparin Sodium (Porcine) (Heparin Sodium) 2,500 unit 1X ONCE IART Last administered on 07/13/17 09:56; Start 07/13/17 at 09:30; Stop 07/13/17 at 09:33; Status DC Heparin Sodium/ Sodium Chloride 1,000 unit 1X ONCE IART Last administered on 09:53; Start 07/13/17 at 09:30; Stop 07/13/17 at 09:33; Status DC Midazolam HCl (Versed) 5 mg 1X ONCE IV Last administered on 07/13/17 09:54; Start 07/13/17 at 09:30; Stop 07/13/17 at 09:33; Status DC Fentanyl Citrate (Fentanyl 2ml Vial) 100 mcg 1X ONCE IV Last administered on 09:55; Start 07/13/17 at 09:30; Stop 07/13/17 at 09:33; Status DC Iodixanol (Visipaque 320) 100 ml 1X ONCE IART Last administered on 07/13/17 09 :53; Start 07/13/17 at 09:30; Stop 07/13/17 at 09:33; Status DC Lidocaine HCl 20 ml 1X ONCE IJ Last administered on 07/13/17 09:53; Start 07/13 at 09:30; Stop 07/13/17 at 09:33; Status DC Info (Do NOT chart on this entry -- for MONITORING) 1 each PRN DAILY PRN MC SEE COMMENTS; Start 07/13/17 at 09:45; Stop 07/15/17 at 09:44; Status DC Cefazolin Sodium 50 ml @ 100 mls/hr 1X ONCE IV ; Start 07/17/17 at 06:00; Stop 07/17/17 at 06:29; Status DC Heparin Sodium (Porcine) (Heparin Sodium) 10,000 unit STK-MED ONCE .ROUTE ; Start 07/13/17 at 14:25; Stop 07/13/17 at 14:26; Status DC Lidocaine/ Epinephrine (Xylocaine 1%-Epi 1:100,000) 20 ml STK-MED ONCE .ROUTE ; Start 07/13/17 at 14:25; Stop 07/13/17 at 14:26; Status DC Heparin Sodium/ Sodium Chloride 500 ml @ As Directed STK-MED ONCE .ROUTE ; Start 07/13/17 at 14:25; Stop 07/13/17 at 14:26; Status DC Midazolam HCl (Versed) 2 mg STK-MED ONCE .ROUTE ; Start 07/13/17 at 14:38; Stop 07/13/17 at 14:39; Status DC Fentanyl Citrate (Fentanyl 2ml Vial) 100 mcg STK-MED ONCE .ROUTE ; Start at 14:39; Stop 07/13/17 at 14:40; Status DC Cefazolin Sodium 50 ml @ As Directed STK-MED ONCE IV ; Start 07/13/17 at 14:39; Stop 07/13/17 at 14:40; Status DC Heparin Sodium/ Sodium Chloride 1,000 unit 1X ONCE IART Last administered on 15:13; Start 07/13/17 at 15:15; Stop 07/13/17 at 15:16; Status DC Midazolam HCl (Versed) 1 mg 1X ONCE IV Last administered on 07/13/17 15:14; Start 07/13/17 at 15:15; Stop 07/13/17 at 15:16; Status DC Fentanyl Citrate (Fentanyl 2ml Vial) 50 mcg 1X ONCE IV Last administered on 15:14; Start 07/13/17 at 15:15; Stop 07/13/17 at 15:16; Status DC Lidocaine/ Epinephrine (Xylocaine 1%-Epi 1:100,000) 10 ml 1X ONCE IJ Last administered on 07/13/17 15:13; Start 07/13/17 at 15:15; Stop 07/13/17 at 15:16; Status DC Cefazolin Sodium 50 ml @ 100 mls/hr 1X ONCE IV Last administered on 07/13/17 15:13; Start 07/13/17 at 15:15; Stop 07/13/17 at 15:44; Status DC Heparin Sodium (Porcine) (Heparin Sodium) 3,800 unit 1X ONCE INT CAT Last administered on 07/13/17t 15:14; Start 07/13/17 at 15:15; Stop 07/13/17 at 15:16; Status DC Levofloxacin (Levaquin) 250 mg HS PO Last administered on 07/13/17t 21:22; Start 07/13/17 at 21:00; Stop 07/14/17 at 11:58; Status DC Sodium Chloride 1,000 ml @ 1,000 mls/hr Q1H PRN IV hypotension; Start 07/13/17 at 15:39; Stop 07/13/17 at 21:38; Status DC Diphenhydramine HCl (Benadryl) 25 mg 1X PRN PRN IV ITCHING; Start 07/13/17 at 15 :45; Stop 07/14/17 at 15:44; Status DC Diphenhydramine HCl (Benadryl) 25 mg 1X PRN PRN IV ITCHING; Start 07/13/17 at 15 :45; Stop 07/14/17 at 15:44; Status DC Sodium Chloride (Normal Saline Flush) 10 ml 1X PRN PRN IV AP catheter pack; Start 07/13/17 at 15:45; Stop 07/14/17 at 15:44; Status DC Sodium Chloride (Normal Saline Flush) 10 ml 1X PRN PRN 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; Start 07/13/17 at 15:45; Stop 07/14/17 at 15:44; Status DC Info (PHARMACY MONITORING -- do not chart) 1 each PRN DAILY PRN MC SEE COMMENTS ; Start 07/13/17 at 15:45 Sodium Chloride 1,000 ml @ 1,000 mls/hr Q1H PRN IV hypotension; Start 07/14/17 at 14:07; Stop 07/14/17 at 20:06; Status DC Sodium Chloride 1,000 ml @ 400 mls/hr Q2H30M PRN IV PATENCY; Start 07/14/17 at 14:07; Stop 07/15/17 at 02:06; Status DC Info (PHARMACY MONITORING -- do not chart) 1 each PRN DAILY PRN MC SEE COMMENTS ; Start 07/14/17 at 14:15; Status UNV Info (PHARMACY MONITORING -- do not chart) 1 each PRN DAILY PRN MC SEE COMMENTS ; Start 07/14/17 at 14:15; Status UNV Acetaminophen (Tylenol) 650 mg PRN Q6HRS PRN PO mild pain Last administered on 07/14/17t 15:54; Start 07/14/17 at 15:45 Oxycodone/ Acetaminophen (Percocet 5/325) 1 tab PRN Q6HRS PRN PO moderate - severe pain; Start 07/14/17 at 15:45 Losartan Potassium (Cozaar) 50 mg DAILY PO Last administered on 07/19/17t 09:25 ; Start 07/15/17 at 15:00 Sodium Chloride 1,000 ml @ 1,000 mls/hr Q1H PRN IV hypotension; Start 07/16/17 at 07:17; Stop 07/16/17 at 13:16; Status DC Ondansetron HCl (Zofran) 4 mg PRN Q6HRS PRN IV NAUSEA/VOMITING; Start 07/17/17 at 07:00; Stop 07/18/17 at 06:59; Status DC Fentanyl Citrate (Fentanyl 2ml Vial) 25 mcg PRN Q5MIN PRN IV MILD PAIN; Start 07/17/17 at 07:00; Stop 07/18/17 at 06:59; Status DC Fentanyl Citrate (Fentanyl 2ml Vial) 50 mcg PRN Q5MIN PRN IV MODERATE PAIN; Start 07/17/17 at 07:00; Stop 07/18/17 at 06:59; Status DC Morphine Sulfate 1 mg PRN Q10MIN PRN IV SEVERE PAIN; Start 07/17/17 at 07:00; Stop 07/18/17 at 06:59; Status DC Ringer's Solution 1,000 ml @ 0 mls/hr Q0M IV ; Start 07/17/17 at 07:00; Stop 07/17/17 at 18:59; Status DC Lidocaine HCl 2 ml PRN 1X PRN ID PRIOR TO IV START; Start 07/17/17 at 07:00; Stop 07/18/17 at 06:59; Status DC Hydromorphone HCl (Dilaudid) 0.5 mg PRN Q10MIN PRN IV SEV PAIN, Second choice; Start 07/17/17 at 07:00; Stop 07/18/17 at 06:59; Status DC Prochlorperazine Edisylate (Compazine) 5 mg PACU PRN PRN IV NAUSEA, MRX1; Start 07/17/17 at 07:00; Stop 07/18/17 at 06:59; Status DC Dexamethasone Sodium Phosphate (Decadron) 20 mg STK-MED ONCE .ROUTE ; Start 07/17 at 06:57; Stop 07/17/17 at 06:58; Status DC Etomidate (Amidate) 20 mg STK-MED ONCE IV ; Start 07/17/17 at 06:57; Stop at 06:58; Status DC Ondansetron HCl (Zofran) 4 mg STK-MED ONCE .ROUTE ; Start 07/17/17 at 06:57; Stop 07/17/17 at 06:58; Status DC Phenylephrine HCl (Ford-Synephrine Inj) 10 mg STK-MED ONCE .ROUTE ; Start at 06:57; Stop 07/17/17 at 06:58; Status DC Propofol 20 ml @ As Directed STK-MED ONCE IV ; Start 07/17/17 at 06:57; Stop 07/17 at 06:58; Status DC Lidocaine HCl (Lidocaine Pf 2% Vial) 5 ml STK-MED ONCE .ROUTE ; Start 07/17/17 at 06:57; Stop 07/17/17 at 06:58; Status DC Aminocaproic Acid (Amicar) 5,000 mg STK-MED ONCE IV ; Start 07/17/17 at 06:57; Stop 07/17/17 at 06:58; Status DC Nitroglycerin/ Dextrose 250 ml @ As Directed STK-MED ONCE IV ; Start 07/17/17 at 06:57; Stop 07/17/17 at 06:58; Status DC Midazolam HCl (Versed) 5 mg STK-MED ONCE .ROUTE ; Start 07/17/17 at 06:57; Stop 07/17/17 at 06:58; Status DC Epinephrine HCl (Adrenalin) 1 mg STK-MED ONCE .ROUTE ; Start 07/17/17 at 06:57; Stop 07/17/17 at 06:58; Status DC Rocuronium [place] (Zemuron) 100 mg STK-MED ONCE .ROUTE ; Start 07/17/17 at 06:57 ; Stop 07/17/17 at 06:58; Status DC Sufentanil Citrate (Sufenta) 100 mcg STK-MED ONCE .ROUTE ; Start 07/17/17 at 06: 57; Stop 07/17/17 at 06:58; Status DC Heparin Sodium (Porcine) 30,000 unit STK-MED ONCE .ROUTE ; Start 07/17/17 at 06: 58; Stop 07/17/17 at 06:59; Status DC Cellulose 1 each STK-MED ONCE .ROUTE ; Start 07/17/17 at 07:35; Stop 07/17/17 at 07:36; Status DC Vancomycin HCl (Vanco) 10 gm STK-MED ONCE .ROUTE ; Start 07/17/17 at 07:35; Stop 07/17/17 at 07:36; Status DC Potassium Chloride 70 meq/ Sodium Bicarbonate 12.5 meq/Lidocaine HCl 24 ml/ Parenteral Electrolytes 571.5 ml @ 571.5 mls/ hr 1X PERIOP ONCE IRR ; Start at 06:00; Stop 07/17/17 at 07:40; Status DC Potassium Chloride 15 meq/ Sodium Bicarbonate 12.5 meq/Parenteral Electrolytes 520 ml @ 520 mls/hr 1X PERIOP ONCE IRR ; Start 07/17/17 at 06:00; Stop 07/17/17 at 07:40; Status DC Cefazolin Sodium 1 gm/Sodium Chloride 500 ml @ 500 mls/hr 1X PERIOP ONCE IRR ; Start 07/17/17 at 06:00; Stop 07/17/17 at 07:40; Status DC Sodium Chloride 1,000 ml @ 75 mls/hr [id number] IV Last administered on 07/18/17t 02:47; Start 07/17/17 at 08:00; Stop 07/18/17 at 13:42; Status DC Metoprolol Tartrate (Lopressor) 5 mg STK-MED ONCE .ROUTE ; Start 07/17/17 at 08: 04; Stop 07/17/17 at 08:05; Status DC Sulfur Hexafluoride Microspheres (Lumason) 25 mg STK-MED ONCE IVP ; Start at 09:02; Stop 07/17/17 at 09:03; Status DC Glycopyrrolate (Robinul) 1 mg STK-MED ONCE .ROUTE ; Start 07/17/17 at 09:22; Stop 07/17/17 at 09:23; Status DC Neostigmine Methylsulfate 5 mg STK-MED ONCE .ROUTE ; Start 07/17/17 at 09:23; Stop 07/17/17 at 09:24; Status DC Hydralazine HCl (Apresoline) 20 mg STK-MED ONCE .ROUTE ; Start 07/17/17 at 10:01 ; Stop 07/17/17 at 10:02; Status DC Sulfur Hexafluoride Microspheres (Lumason) 25 mg 1X ONCE IVP Last administered on 07/17/17t 10:18; Start 07/17/17 at 10:15; Stop 07/17/17 at 10:20; Status DC Sulfur Hexafluoride Microspheres (Lumason) 25 mg 1X ONCE IVP ; Start 07/17/17 at 10:15; Stop 07/17/17 at 10:20; Status DC Isoflurane (Isoflurane) 90 ml STK-MED ONCE IH ; Start 07/17/17 at 10:24; Stop 07/17/17 at 10:25; Status DC Labetalol HCl (Normodyne) 20 mg PRN Q2HR PRN IVP HYPERTENSION, SEE COMMENTS; Start 07/18/17 at 08:00 Sodium Chloride 1,000 ml @ 1,000 mls/hr Q1H PRN IV hypotension; Start 07/18/17 at 09:23; Stop 07/18/17 at 15:22; Status DC Diphenhydramine HCl (Benadryl) 25 mg 1X PRN PRN IV ITCHING; Start 07/18/17 at 09 :30; Stop 07/19/17 at 09:29; Status DC Diphenhydramine HCl (Benadryl) 25 mg 1X PRN PRN IV ITCHING; Start 07/18/17 at 09 :30; Stop 07/19/17 at 09:29; Status DC Sodium Chloride 1,000 ml @ 400 mls/hr Q2H30M PRN IV PATENCY; Start 07/18/17 at 09:23; Stop 07/18/17 at 21:22; Status DC Info (PHARMACY MONITORING -- do not chart) 1 each PRN DAILY PRN MC SEE COMMENTS ; Start 07/18/17 at 09:30; Stop 07/18/17 at 13:58; Status DC Amlodipine Besylate (Norvasc) 5 mg DAILY PO ; Start 07/18/17 at 11:00; Stop at 13:28; Status DC Ferrous Sulfate (Feosol) 325 mg DAILYWBKFT PO Last administered on 07/19/17 09: 22; Start 07/18/17 at 12:00 Amlodipine Besylate (Norvasc) 10 mg DAILY PO ; Start 07/19/17 at 09:00; Stop 07/19 at 09:00; Status DC Atorvastatin Calcium (Lipitor) 10 mg QHS PO Last administered on 07/19/17 21:28 ; Start 07/18/17 at 21:00 Labetalol HCl (Trandate) 200 mg BID PO ; Start 07/18/17 at 21:00; Stop 07/18/17 at 21:00; Status DC Amlodipine Besylate (Norvasc) 5 mg QHS PO Last administered on 07/19/17 21:27; Start 07/18/17 at 21:00 Docusate Sodium (Colace) 100 mg DAILY PO ; Start 07/20/17 at 09:00 Docusate Sodium (Colace) 100 mg PRN DAILY PRN PO CONSTIPATION Last administered on 07/19/17 21:28; Start 07/19/17 at 20:45 Magnesium Hydroxide (Milk Of Magnesia) 2,400 mg PRN DAILY PRN PO CONSTIPATION; Start 07/19/17 at 20:45 Polyethylene Glycol (miraLAX PACKET) 17 gm PRN DAILY PRN PO CONSTIPATION Last administered on 07/19/17 21:28; Start 07/19/17 at 20:45 Polyethylene Glycol (miraLAX PACKET) 17 gm DAILY PO ; Start 07/20/17 at 09:00 Sodium Chloride 1,000 ml @ 1,000 mls/hr Q1H PRN IV hypotension; Start 07/20/17 at 09:04; Stop 07/20/17 at 15:03 Diphenhydramine HCl (Benadryl) 25 mg 1X PRN PRN IV ITCHING; Start 07/20/17 at 09 :15; Stop 07/21/17 at 09:14 Diphenhydramine HCl (Benadryl) 25 mg 1X PRN PRN IV ITCHING; Start 07/20/17 at 09 :15; Stop 9/9/17 at 09:14 Sodium Chloride (Normal Saline Flush) 10 ml 1X PRN PRN IV AP catheter pack; Start 07/20/17 at 09:15; Stop 07/21/17 at 09:14 Sodium Chloride (Normal Saline Flush) 10 ml 1X PRN PRN 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; Start 07/20/17 at 09:15; Stop 07/21/17 at 09:14 Sodium Chloride 1,000 ml @ 400 mls/hr Q2H30M PRN IV PATENCY; Start 07/20/17 at 09:04; Stop 07/20/17 at 21:03 Info (PHARMACY MONITORING -- do not chart) 1 each PRN DAILY PRN MC SEE COMMENTS ; Start 07/20/17 at 09:15 Active Scripts Active Reported No Known Medications Prior To Admisstion (Info) Each 1 Each Vitals/I & O Vital Sign - Last 24 Hours 07/19/17 07/19/17 07/19/17 07/19/17 11:00 15:00 19:18 19:40 Temp 98.4 98.2 97.5 98.4 98.2 97.5 Pulse 82 84 89 Resp 16 16 16 B/P (MAP) 134/85 (101) 137/83 (101) 113/68 (83) Pulse Ox 100 100 100 O2 Delivery Room Air Room Air Room Air Room Air 07/19/17 07/19/17 07/20/17 07/20/17 21:27 23:24 03:20 07:12 Temp 98.0 98.1 98.4 98.0 98.1 98.4 Pulse 89 73 71 63 Resp 18 18 18 B/P (MAP) 113/68 129/77 (94) 116/58 (77) 140/66 (90) Pulse Ox 97 95 98 O2 Delivery Room Air Room Air Room Air Intake and Output 07/20/17 07/20/17 07/21/17 15:00 23:00 07:00 Intake Total 240 ml Balance 240 ml NAVI PYLE MD Jul 20, 2017 10:38
[2017-07-20] MEDS: LOSARTAN POTASSIUM 50 MG TABLET. PO SCH (14:19)
[2017-07-20] MEDS: FERROUS SULFATE 325 MG TABLET. PO SCH (14:23)
[2017-07-20 14:47] VITALS: BP 139/52
== END 2017-07-20 17:50 | disposition home or self-care (01) | DRG 286 ==
LOC: 1 WEST ICU 15:40 → 2 SOUTH 07-12 15:33 → 1 WEST ICU 07-17 09:50 → 2 NORTH 07-18 08:18
PROVIDERS: ADMIT Internal Medicine; ATTEND Internal Medicine
PROC: 4A023N7 Measurement of Cardiac Sampling and Pressure, Left Heart, Percutaneous Approach (ICD-10-PCS; principal; 2017-07-13)
PROC: B2111ZZ Fluoroscopy of Multiple Coronary Arteries using Low Osmolar Contrast (ICD-10-PCS; 2017-07-13)
PROC: 0JH63XZ Insertion of Tunneled Vascular Access Device into Chest Subcutaneous Tissue and Fascia, Percutaneous Approach (ICD-10-PCS; 2017-07-13)
PROC: 02H633Z Insertion of Infusion Device into Right Atrium, Percutaneous Approach (ICD-10-PCS; 2017-07-13)
PROC: B2141ZZ Fluoroscopy of Right Heart using Low Osmolar Contrast (ICD-10-PCS; 2017-07-13)
PROC: B244ZZZ Ultrasonography of Right Heart (ICD-10-PCS; 2017-07-13)
PROC: 5A1D60Z (ICD-10-PCS; 2017-07-13)
DX: I13.2 Hypertensive heart and chronic kidney disease with heart failure and with stage 5 chronic kidney disease, or end stage renal disease (principal); N18.6 End stage renal disease; N17.9 Acute kidney failure, unspecified; D69.1 Qualitative platelet defects; I42.9 Cardiomyopathy, unspecified; E44.1 Mild protein-calorie malnutrition; I50.43 Acute on chronic combined systolic (congestive) and diastolic (congestive) heart failure; I16.9 Hypertensive crisis, unspecified; E83.42 Hypomagnesemia; D50.9 Iron deficiency anemia, unspecified; D63.1 Anemia in chronic kidney disease; E78.5 Hyperlipidemia, unspecified; E87.5 Hyperkalemia; E87.6 Hypokalemia; F17.210 Nicotine dependence, cigarettes, uncomplicated; I16.0 Hypertensive urgency; R09.89 Other specified symptoms and signs involving the circulatory and respiratory systems; Z53.9 Procedure and treatment not carried out, unspecified reason; Z82.49 Family history of ischemic heart disease and other diseases of the circulatory system; Z99.2 Dependence on renal dialysis; Z83.3 Family history of diabetes mellitus; Z80.9 Family history of malignant neoplasm, unspecified; Z98.51 Tubal ligation status; Z90.721 Acquired absence of ovaries, unilateral; Z71.6 Tobacco abuse counseling; Z68.26 Body mass index [BMI] 26.0-26.9, adult; I51.3 Intracardiac thrombosis, not elsewhere classified
CPT/HCPCS: 93325; 93454; C8925; 36415; 36558; 70450; 71010; 71020; 71250; 76376; 76377; 76770; 76937; 77001; 78452; 80048; 80053; 80061; 80069; 80074; 81001; 82248; 82306; 82550; 82570; 82575; 82728; 83540; 83550; 83735; 83970; 84156; 84443; 84484; 84550; 85018; 85025; 85027; 85045; 85610; 85651; 85730; 86704; 86706; 86850; 86900; 86901; 86920; 87086; 87641; 93005; 93017; 93306; 93312; 93318; 93880; 96374; 96375; 96376; 99152; 99153; 99406; A9500; C1750; C1769; C1781; C1892; C8929; J0171; J0360; J0690; J1100; J1644; J1756; J1940; J1956; J2250; J2405; J2704; J2710; J2785; J3010; J3370; J3490; J7030; J7050; J7120; 97110; J2001; Q9950

== ENCOUNTER → 2017-07-26 | Outpatient (CLI) | payer OTHER ==
[~2017-07-26] VITALS: Ht 165.1 cm; Wt 70.3 kg
[~2017-07-26] MED LIST: AMLO5TAB4 PO; ATOR10TA PO; FERR-26 PO; HEPARIN for IV BOLUS 10,000 UNIT/10 ML VIAL. ONE; LIDOCAINE 1%/EPI 1:100,000 20 ML VIAL. IJ ONE; LIDOCAINE 1%/EPI 1:100,000 20 ML VIAL. ONE; LOSA50TA6 PO
[2017-07-26 09:20] VITALS: BP 137/95
[2017-07-26 10:11] VITALS: BP 121/67
--- NOTE | 2017-07-26 10:12 | RAD ---
Replacement of a right internal jugular tunneled dialysis catheter 07/26/2017 Indication: Partial catheter retraction, cuff external to skin Discussion: The risks and benefits of the procedure were discussed the patient. Informed consent was obtained. A timeout procedure was performed. The patient was placed in the supine position on the fluoroscopy table. The right upper chest including the appendix and catheter were prepped and draped using maximum sterile barrier technique. All elements of maximal sterile barrier technique including the use of a cap, mask, sterile gown, sterile gloves, large sterile sheet, appropriate hand hygiene, and 2% chlorhexidine for cutaneous antisepsis (or acceptable alternative antiseptic per current guidelines) were followed for this procedure. Pacing catheter was examined under fluoroscopy and found to be significantly retracted. 2. Glidewire were advanced to the pre-existing catheter into the IVC. Over these wires a pacing catheter was removed and replaced with new 23 cm tip to cuff palindrome tunneled dialysis catheter. Catheter was flushed and aspirate normally. Catheter was packed with heparin per protocol. Catheter was sutured in place and a sterile dressing was applied. No immediate complications were identified. The procedure was performed under local anesthesia only. Fluoroscopy time: 0.6 MINUTES Dose area product: 1 Gycm2 Impression: Successful placement of a right internal jugular tunnel dialysis catheter
== END | disposition home or self-care (01) ==
LOC: INTRAD 08:41
PROVIDERS: ATTEND Internal Medicine Nephrology
DX: T82.42XA Displacement of vascular dialysis catheter, initial encounter (principal); Y84.8 Other medical procedures as the cause of abnormal reaction of the patient, or of later complication, without mention of misadventure at the time of the procedure; E78.00 Pure hypercholesterolemia, unspecified; I12.9 Hypertensive chronic kidney disease with stage 1 through stage 4 chronic kidney disease, or unspecified chronic kidney disease; N18.9 Chronic kidney disease, unspecified; F17.200 Nicotine dependence, unspecified, uncomplicated; Z99.2 Dependence on renal dialysis; Z83.3 Family history of diabetes mellitus; Z82.49 Family history of ischemic heart disease and other diseases of the circulatory system
CPT/HCPCS: 36581; 77001; 99152; A4215; C1750; J0690; J1644; J3490

== ENCOUNTER → 2017-10-22 | Outpatient (CLI) | payer OTHER ==
[2017-07-26 10:11] VITALS: BP 121/67
[~2017-10-22] MED LIST changes: -HEPARIN for IV BOLUS 10,000 UNIT/10 ML VIAL. ONE; -LIDOCAINE 1%/EPI 1:100,000 20 ML VIAL. IJ ONE; -LIDOCAINE 1%/EPI 1:100,000 20 ML VIAL. ONE
--- NOTE | 2017-10-22 14:09 | CARD ---
APPROVED REPORT EXAM: Two-dimensional and M-mode echocardiogram with Doppler and color Doppler. Other Information Quality : Good INDICATION Mass of Cardiac Left Ventricle 2D DIMENSIONS RVDd2.3 (2.9-3.5cm)Left Atrium(2D)3.1 (1.6-4.0cm) IVSd1.6 (0.7-1.1cm)Aortic Root(2D)2.7 (2.0-3.7cm) LVDd4.1 (3.9-5.9cm)LVOT Diameter2.0 (1.8-2.4cm) PWd1.3 (0.7-1.1cm)LVDs2.3 (2.5-4.0cm) FS (%) 30.0 %SV55.2 ml LVEF(%)60.0 (>50%) Aortic Valve AoV Peak Jaylen.156.3cm/sAoV VTI25.9cm AO Peak GR.9.8mmHgLVOT Peak Jaylen.111.5cm/s AO Mean GR.7mmHgAVA (VMAX)2.30cm2 ANALILIA (VTI)2.00cm2 Mitral Valve MV E Tvwgdyjn39.7cm/sMV DECEL [id number] MV A Mujvepmk87.3cm/sE/A Ratio0.7 Tricuspid Valve TR P. Jshranps457ex/sRAP [id number] TR Peak Gr.[id number] Pulmonary Vein S1 Dgbxqzzl70.7cm/sD2 Tuzpafjp98.4cm/s LEFT VENTRICLE The left ventricle is normal size. There is moderate concentric left ventricular hypertrophy. The lef t ventricular systolic function is normal. The Ejection Fraction is 60-65%. There is normal LV segmen mei wall motion. Transmitral Doppler flow pattern is Grade I-abnormal relaxation pattern. No left max tricle thrombus noted on this study. RIGHT VENTRICLE The right ventricle is normal size. The right ventricular systolic function is normal. ATRIA The left atrium size is normal. The right atrium size is normal. The interatrial septum is intact wit h no evidence for an atrial septal defect or patent foramen ovale as noted on 2-D or Doppler imaging. AORTIC VALVE The aortic valve is calcified but opens well. Doppler and Color Flow revealed no significant aortic r egurgitation. There is no significant aortic valvular stenosis. MITRAL VALVE The mitral valve is calcified but opens well. There is no evidence of mitral valve prolapse. There is no mitral valve stenosis. Doppler and Color Flow revealed no mitral valve regurgitation noted. TRICUSPID VALVE The tricuspid valve is normal in structure and function. Doppler and Color Flow revealed trace tricus pid regurgitation. The PA pressure was estimated at 22 mmHg. There is no tricuspid valve stenosis. PULMONIC VALVE The pulmonary valve is normal in structure and function. Doppler and Color Flow revealed mild pulmoni c valvular regurgitation. There is no pulmonic valvular stenosis. GREAT VESSELS The aortic root is normal in size. The ascending aorta is mildly dilated at 3.6 cm. The IVC is normal in size and collapses >50% with inspiration. PERICARDIAL EFFUSION There is no evidence of significant pericardial effusion. Critical Notification Critical Value: No <Conclusion> The left ventricular systolic function is normal. The Ejection Fraction is 60-65%. There is normal LV segmental wall motion. Prominent trabeculae LV apex without any obvious thrombus or mass. Transmitral Doppler flow pattern is Grade I-abnormal relaxation pattern. Doppler and Color Flow revealed trace tricuspid regurgitation. The PA pressure was estimated at 22 mmHg. There is no evidence of significant pericardial effusion.
== END | disposition home or self-care (01) ==
LOC: ECHO 09:12
PROVIDERS: ATTEND Internal Medicine Cardiovascular Disease
DX: I51.9 Heart disease, unspecified (principal)
CPT/HCPCS: 93306